=== PATIENT | female | born 1960 | race African-American/Black ===

== ENCOUNTER 2020-01-17 06:52 | Outpatient (CLI) | payer OTHER, SELFPAY ==
--- NOTE | ~2020-01-17 | XR_ITS ---
EXAMINATION: XR hip BI 2V w AP pelvis DATE: 01/17/2020 07:23 INDICATION: Hip pain. TECHNIQUE: An anteroposterior view pelvis and 2 views of each hip were obtained. COMPARISON: None. FINDINGS: There is lumbar levocurvature and moderate spondylosis. No fracture. There is mild osteoart hritis of the hips. IMPRESSION: 1. Mild osteoarthritis of the hips. Reviewed, dictated and finalized at location A.
--- NOTE | ~2020-01-17 | XR_ITS ---
EXAMINATION: XR chest 2V 01/17/2020 07:23 INDICATION: Acute bronchitis. Dyspnea. PROCEDURE: 2 view chest COMPARISON: No prior studies for comparison. FINDINGS: The lungs are clear. The cardiomediastinal silhouette is within normal limits. There are no pleural effusions. There is no pneumothorax suspected. IMPRESSION: 1: NO ACUTE CARDIOPULMONARY DISEASE. Reviewed, dictated and finalized at location A.
== END 2020-01-17 06:53 | disposition home or self-care (01) ==
LOC: ANHIMG 07:04
PROVIDERS: PCP Family Medicine; Visit Provider Family Medicine
DX: J20.9 Acute bronchitis, unspecified (principal); M25.559 Pain in unspecified hip; M16.0 Bilateral primary osteoarthritis of hip
CPT/HCPCS: 71046; 73521

== ENCOUNTER 2020-06-27 09:19 | Outpatient (CLI) | payer OTHER, SELFPAY ==
--- NOTE | ~2020-06-27 | MM_ITS ---
EXAMINATION: MM screening rustam BI w larissa HISTORY: Screening mammogram TECHNIQUE: Craniocaudal and mediolateral oblique 3-D tomosynthesis images were obtained and synthetic 2-D images were generated. CAD analysis was submitted and interpreted. COMPARISON: No prior mammogram is available for comparison at this institution. BREAST PARENCHYMAL COMPOSITION: There are scattered areas of fibroglandular density. FINDINGS: RIGHT BREAST: There is a mass in the middle third of the upper outer quadrant of the breast. In addit ion, there are indeterminate grouped calcifications in the anterior/middle third of inner breast. LEFT BREAST: There is no evidence of suspicious mass, calcification, or architectural distortion to s uggest malignancy. IMPRESSION: 1. Right breast findings as described above which may represent the patient's baseline however no com parison is currently available. 2. Comparison with prior mammograms is necessary. BI-RADS Category 0: Incomplete: Needs comparison with prior mammograms. Reviewed, dictated and finalized at location A. ECT MANAGEMENT ADVISOR IMPRESSION: 1. Right breast findings as described above which may represent the patient's b aseline however no comparison is currently available. 2. Comparison with prior mammograms is necessary. BI-RADS Category 0: Incomplete: Needs comparison with prior mammograms.
== END 2020-06-27 09:20 | disposition home or self-care (01) ==
LOC: ANHIMG 09:24
PROVIDERS: PCP Family Medicine; Visit Provider Family Medicine
DX: Z12.31 Encounter for screening mammogram for malignant neoplasm of breast (principal); R92.8 Other abnormal and inconclusive findings on diagnostic imaging of breast
CPT/HCPCS: 77063; 77067

== ENCOUNTER 2020-12-06 13:29 | Outpatient (CLI) | payer OTHER, SELFPAY ==
--- NOTE | ~2020-12-06 | US_ITS ---
EXAMINATION: US thyroid DATE: 12/06/2020 13:52 INDICATION: Nontoxic goiter TECHNIQUE: Multiple ultrasound images of the thyroid were obtained. COMPARISON: None. FINDINGS: The right thyroid lobe measures 5.6 x 2.1 x 1.6 cm. The left thyroid lobe measures 4.9 x 1.8 x 1.5 c m. Thyroid isthmus measures 4 mm in thickness. There is a 9 mm polyp and wide solid hypoechoic and h ypervascular nodule with smooth margins and without echogenic foci at the lower pole of the right thy roid lobe (TI-RADS 5, highly suspicious , FNA if >=1.0 cm, annual followup is >0.5 cm). 5 mm similar appearing but wider than tall TI RADS 4 nodule at the inferior left thyroid. There is normal echotext ure and echogenicity but with increased vascular flow throughout the thyroid gland. IMPRESSION: 1. A couple bilateral subcentimeter thyroid nodules. Recommend one-year follow-up ultrasound of the l arger and higher grade 9 mm TI RADS 5 nodule in the inferior right thyroid. Reviewed, dictated and finalized at location A. IMPRESSION: 1. A couple bilateral subcentimeter thyroid nodules. Recommend one-year follow- up ultrasound of the larger and higher grade 9 mm TI RADS 5 nodule in the infer ior right thyroid.
== END 2020-12-06 13:30 | disposition home or self-care (01) ==
LOC: ANHIMG 13:29
PROVIDERS: PCP Family Medicine; Visit Provider Student in an Organized Health Care Education/Training Program
DX: E04.2 Nontoxic multinodular goiter (principal)
CPT/HCPCS: 76536

== ENCOUNTER 2021-09-05 07:24 | Outpatient (CLI) | payer OTHER, SELFPAY ==
--- NOTE | ~2021-09-05 | MM_ITS ---
EXAMINATION: MM screening rustam BI w larissa HISTORY: Screening mammogram TECHNIQUE: Craniocaudal and mediolateral oblique 3-D tomosynthesis images were obtained and synthetic 2-D images were generated. CAD analysis was submitted and interpreted. COMPARISON: 08/13/2020, 06/27/2020, 11/21/2015 BREAST PARENCHYMAL COMPOSITION: There are scattered areas of fibroglandular density. FINDINGS: Scattered benign-appearing calcifications are present. There is no evidence of suspicious m ass, calcification, or architectural distortion to suggest malignancy in either breast. There has bee n no suspicious interval change. IMPRESSION: 1. No mammographic evidence of malignancy. 2. Recommend routine screening mammography in one year. BI-RADS Category 2: Benign finding(s). Reviewed, dictated and finalized at location A. OYMENT SPECIALIST
--- NOTE | ~2021-09-05 | XR_ITS ---
XR wrist LT min 3V 09/05/2021 08:24 INDICATION: Left wrist pain. Trauma. PROCEDURE: 4 views left wrist COMPARISON: No prior studies for comparison. FINDINGS: Fracture, dislocation or subluxation is not identified. There is an old ulnar styloid avuls ion. The soft tissues appear within normal limits. No foreign bodies are identified. IMPRESSION: 1: NO ACUTE BONE OR JOINT ABNORMALITY IDENTIFIED. Reviewed, dictated and finalized at location B. MAKER
--- NOTE | ~2021-09-05 | US_ITS ---
EXAMINATION: US thyroid EXAM DATE: 09/05/2021 08:31 INDICATION: Thyroid nodule. TECHNIQUE: Multiple grayscale and Doppler images of the thyroid were obtained (by a technologist who performed the scan) and subsequently reviewed. Individual nodules and recommendations may be reporte d in accordance with TI-RADS system as designated by the 2017 ACR White Paper TI-RADS committee. Comp chandanson is made to prior examination from 12/06/2020. FINDINGS: The right thyroid lobe measures 5.2 x 1.4 x 2.1 cm, the left measuring 5.0 x 1.7 x 2.2 cm. These dime nsions are mildly enlarged. Mildly hypervascular thyroid parenchyma. Largest nodule is in the right thyroid lobe measuring 9 x 7 x 6 mm, category TR 4, unchanged. This is the 1st annual follow-up for this nodule; additional follow-up in 1 year, 2 years and 4 years under current recommendations. The smaller 5 mm left thyroid nodule previously seen also unchanged. IMPRESSION: Multinodular goiter; one-year follow-up indicated. Reviewed, dictated and finalized at location A. ENT ACCESS ASSOCIATE
== END 2021-09-05 07:25 | disposition home or self-care (01) ==
LOC: ANHIMG 07:26
PROVIDERS: PCP Physician Assistant; Visit Provider Physician Assistant
DX: Z12.31 Encounter for screening mammogram for malignant neoplasm of breast (principal); M25.532 Pain in left wrist; E04.2 Nontoxic multinodular goiter
CPT/HCPCS: 73110; 76536; 77063; 77067

== ENCOUNTER 2022-09-21 09:40 | Outpatient (CLI) | payer OTHER, SELFPAY ==
--- NOTE | ~2022-09-21 | XR_ITS ---
EXAMINATION: XR hip BI 2V w AP pelvis DATE: 09/21/2022 10:09 INDICATION: Hip pain. TECHNIQUE: An anteroposterior view of the pelvis and 2 views of each hip were obtained. COMPARISON: Pelvis and hip radiograph 01/17/2020 FINDINGS: There is lumbar levocurvature and moderate spondylosis. No fracture. There is mild osteoart hritis of the hips. IMPRESSION: 1. Mild osteoarthritis of the hips. Reviewed, dictated and finalized at location A. GER ECONOMIC
--- NOTE | ~2022-09-21 | XR_ITS ---
EXAMINATION: XR knee LT 3V DATE: 09/21/2022 10:09 INDICATION: Left knee pain. TECHNIQUE: 3 views of left knee including standing views were obtained. COMPARISON: None. FINDINGS: Bone alignment is normal. No fracture. There is severe osteoarthritis of medial compartment and mild osteoarthritis of lateral and patellofemoral compartments. No knee joint effusion. IMPRESSION: 1. Severe left knee osteoarthritis. Reviewed, dictated and finalized at location A. S TENDER INCENDIARY GRENADE
--- NOTE | 2022-09-21 10:07 | ECG_ITS ---
Measurements Intervals Barre Rate: 78 P: 56 NJ: 154 QRS: -1 QRSD: 87 T: 9 QT: 370 QTc: 421 Interpretive Statements SINUS RHYTHM WITHIN NORMAL LIMITS NO PREVIOUS ECG AVAILABLE FOR COMPARISON Electronically Signed On 09-21-2022 12:15:16 DESIGNER WRITER by Patrick Fox M.D.
== END 2022-09-21 09:41 | disposition home or self-care (01) ==
PROVIDERS: PCP Physician Assistant; Visit Provider Physician Assistant
DX: R07.89 Other chest pain (principal); E04.9 Nontoxic goiter, unspecified; M25.559 Pain in unspecified hip; M25.562 Pain in left knee; M16.0 Bilateral primary osteoarthritis of hip; M17.12 Unilateral primary osteoarthritis, left knee
CPT/HCPCS: 73521; 73562; 93005

== ENCOUNTER 2022-09-25 16:47 | Outpatient (CLI) | payer OTHER, SELFPAY ==
--- NOTE | ~2022-09-25 | US_ITS ---
US thyroid INDICATION: Thyroid goiter TECHNIQUE: Real-time sonographic images of the thyroid gland were obtained. COMPARISON: 09/05/2021 FINDINGS: The right thyroid lobe measures 5.8 x 2.5 x 1.2 cm. The left thyroid lobe measures 5.1 x 2 .1 x 1.7 cm. In the right lobe there is an 11 x 8 x 8 mm oval circumscribed solid slightly hypoechoic , wider than tall without internal echogenic foci, TR 4. No significant change from prior study allow ing for differences of technique. No discrete mass identified in the left lobe. Normal vascularity in both lobes. IMPRESSION: 1. Stable 11 mm right thyroid nodule, TR 4, likely benign. Consider follow-up ultrasound in 12 month s. Reviewed, dictated and finalized at location A. NESS PROGRAM COORDINATOR IMPRESSION: 1. Stable 11 mm right thyroid nodule, TR 4, likely benign. Consider follow-up ultrasound in 12 months.
== END 2022-09-25 16:48 | disposition home or self-care (01) ==
LOC: ANHIMG 16:48
PROVIDERS: PCP Physician Assistant; Visit Provider Physician Assistant
DX: E04.1 Nontoxic single thyroid nodule (principal)
CPT/HCPCS: 76536

== ENCOUNTER 2022-11-19 17:09 | Outpatient (CLI) | payer OTHER, SELFPAY ==
--- NOTE | ~2022-11-19 | MM_ITS ---
EXAMINATION: MM screening rustam BI w larissa HISTORY: Screening mammogram TECHNIQUE: Craniocaudal and mediolateral oblique 3-D tomosynthesis images were obtained and synthetic 2-D images were generated. CAD analysis was submitted and interpreted. COMPARISON: 09/05/2021, 08/13/2020, 06/27/2020 lateral screening mammogram examinations BREAST PARENCHYMAL COMPOSITION: There are scattered areas of fibroglandular density. FINDINGS: Occasional bilateral benign calcifications, occasional benign appearing low-density circums cribed opacities. There is no evidence of suspicious mass, calcification, or architectural distortion to suggest malignancy in either breast. There has been no suspicious interval change. IMPRESSION: 1. No mammographic evidence of malignancy. 2. Recommend routine screening mammography in one year. BI-RADS Category 2: Benign finding(s). Reviewed, dictated and finalized at location A.
== END 2022-11-19 17:10 | disposition home or self-care (01) ==
PROVIDERS: PCP Physician Assistant; Visit Provider Physician Assistant
DX: Z12.31 Encounter for screening mammogram for malignant neoplasm of breast (principal)
CPT/HCPCS: 77063; 77067

== ENCOUNTER 2024-07-24 07:35 | Outpatient (CLI) | payer MEDICARE, SELFPAY ==
--- NOTE | ~2024-07-24 | MM_ITS ---
EXAMINATION: MM screening rustam BI w larissa HISTORY: Screening TECHNIQUE: Craniocaudal and mediolateral oblique 3-D tomosynthesis images were obtained and synthetic 2-D images were generated. CAD analysis was submitted and interpreted. COMPARISON: Comparison to multiple prior studies sequentially, with oldest reviewed study dated 11/20. BREAST PARENCHYMAL COMPOSITION: Not dense: There are scattered areas of fibroglandular density. FINDINGS: No significant change to right breast calcifications. There is no evidence of suspicious ma ss, calcification, or architectural distortion to suggest malignancy in either breast. There has been no suspicious interval change. IMPRESSION: 1. No mammographic evidence of malignancy. 2. Recommend routine screening mammography in one year. BI-RADS Category 2: Benign finding(s). Reviewed, dictated and finalized at location B. PAPER INSERTER
--- NOTE | ~2024-07-24 | DEXA_ITS ---
Bone Density Report Name: NURIA COREAS Age: 64 Sex: Female Ethnicity: White Date of : 1960 Indication: postmenopausal; screening for osteoporosis; Referring Provider: MICHAEL YOU Study: Bone densitometry was performed. Exam Date: July 24, 2024 Accession number: [id number] Bone Density: Region BMD T-score Z-score Classification AP Spine(L1-L4) 1.200 1.4 3.2 Normal Femoral Neck (Left) 0.741 -1.0 0.6 Normal Total Hip (Left) 1.008 0.5 1.8 Normal Femoral Neck (Right) 0.726 -1.1 0.5 Osteopenia Total Hip (Right) 0.951 0.1 1.4 Normal Total Hip Mean 0.980 0.3 1.6 Normal World Health Organization criteria for BMD impression classify patients as: Normal (T-score at or above -1.0), Osteopenia (T-score between -1.0 and -2.5), or Osteoporosis (T-score at or below -2.5). 10-year Fracture Risk(1): Major Osteoporotic Fracture 7.7% Hip Fracture 0.6% Reported Risk Factors: [place] (), Neck BMD=0.726, BMI=36.4 (1) FRAX(R) Version 3.08. Fracture probability calculated for an untreated patient. Fracture probability may be lower if the patient has received treatment. Clinical Information Provided by Patient: Has used the following medications: Vitamin D, Calcium Patient maximum height was 65.0 No regular weight bearing exercise Does not regularly consume dairy products Drinks caffeinated beverages Onset of menses at age 12 Number of children 2 Impression: The patient has low bone mass, based on the Right Femoral Neck T-score. The patient has an estimated ten-year risk of hip fracture of 0.6% and an estimated ten-year risk of major fracture of 7.7%, based on the WHO FRAX algorithm. Discussion: BONE DENSITY IS LOW AT ONE OR MORE SKELETAL SITES. This patient's lowest T-score is low at one or more skeletal sites. It meets the World Health Organization's (WHO) criteria for ?low bone mass? (T-score between -1.0 and -2.5). The patient's 10-year risk of fracture as calculated by FRAX is less than the threshold where pharmacological therapy is recommended by the National Osteoporosis Foundation (NOF). However, all treatment decisions require clinical judgment and consideration of individual patient factors, including patient preferences, comorbidities, previous drug use, risk factors not captured in the FRAX model (e.g., frailty, falls, vitamin D deficiency, increased bone turnover, interval significant decline in bone density) and possible under or overestimation of fracture risk by FRAX. The patient should follow a healthful lifestyle (good nutrition with adequate calcium and vitamin D, and appropriate weight-bearing exercise). Follow-Up: Consider repeating this study in 2 to 3 years to reassess this patient's status, or sooner if there is some new clinical indication. Reported by: AREN on 07/24/2024 8:08:00 AM. Reviewed, dictated and finalized at location A. MARILEE
--- OUTSIDE RECORDS SUMMARY | 2024-07-29 18:34 | XMS_ITS | Encounter Summary ---
Author Organization [facility] Address [address] [place] [address]. [place] [address] [place] [address] Care Team Providers Care Lead Radiologic Technologist Name Role Phone Rolando Padilla MD Primary Care Provider [phone] Dianelys Weber MD Primary Care Provider [phone] Dianelys Weber MD Primary Care Provider [phone] Dianelys Weber MD Primary Care Provider [phone] Encounter Details Date Type Department Care Team (Late st Contact Info) Description 06/11/[address] [facility] Diagnostic Imaging [address] [place] [address] Dianelys Weber MD [address] [facility] [address] [place] [address] Social History Tobacco Use Types Packs/Day Years Used Date Smoking Tobacco: Never Assessed Comments Unknown Sex and Gender Information Value Date Recorded Sex Assigned at Not on file Legal Sex Female 6:23 PM CDT Gender Identity Not on file Sexual Orientation Not on file documented as of this encounter Plan of Treatment Not on file documented as of this encounter Visit Diagnoses Diagnosis Other abnormal and inconclusive findings on diagnostic imaging of breast documented in this encounter Care Teams Lead Radiologic Technologist Relationship Specialty Start Date End Date Rolando Padilla MD [address] [facility] [address] [place] [address] PCP - General 11/20/16 12/27/16 Dianelys Weber MD [address] [place] [address] PCP - General 03/17/16 11/19/16 Dianelys Weber MD [address] [place] [address] PCP - General 08/07/15 03/16/16 Dianelys Weber MD [address] [place] [address] PCP - General 06/11/15 08/06/15 documented as of this encounter
--- OUTSIDE RECORDS SUMMARY | 2024-07-29 18:34 | XMS_ITS | Encounter Summary ---
Author Organization [facility] Address [address] [place] [address]. [place] [address] [place] [address] Care Team Providers Care Community Cultural Development Officer Name Role Phone Unavailable Primary Care Provider Unavailabl e Encounter Details Date Type Department Care Team (Late st Contact Info) Description 03/25/2017 Abstract [facility] [address] [facility] [place] [address] Volodymyr Gonzalez MD [address] [place] [address] Social History Tobacco Use Types Packs/Day Years Used Date Smoking Tobacco: Never Assessed Comments Unknown Sex and Gender Information Value Date Recorded Sex Assigned at Not on file Legal Sex Female 6:23 PM CDT Gender Identity Not on file Sexual Orientation Not on file documented as of this encounter Plan of Treatment Not on file documented as of this encounter Procedures Procedure Name Priority Date/Time Associated Diagnosis Comments AST/SGOT Routine 03/25/2017 7:25 AM CDT BASIC METABOLIC PANEL Routine 03/25/2017 7:25 AM CDT LIPID PANEL Routine 03/25/2017 7:25 AM CDT LIPOPROTEIN, LDL CHOL, DIRECT Routine 03/25/2017 7:25 AM CDT ALT/SGPT Routine 03/25/2017 7:25 AM CDT documented in this encounter Results * (ABNORMAL) LIPID PANEL (03/25/2017 7:25 AM CDT) [facility] Signature CHOLESTEROL 209(H) <200 MG/DL 03/25/2017 8:43 AM CDT [facility] Comment: NOTE: Acetaminophen, N Acetyl p benzoquinone imine (NAPQI), N acetylcysteine (NAC), Metamizole, 4 Aminoantipyrine (4 AAP) and 4 Methylamino antipyrine (4 MAP) at high concentrations can cause falsely low results on Lactate, Uric Acid, Cholesterol, Triglyceride, HDL, and Direct LDL. TRIGLYCERIDES 102 <150 MG/DL 03/25/2017 8:43 AM CDT [facility] HDL 49(L) >59 MG/DL 03/25/2017 8:43 AM T [facility] LDL (CALCULATED) 140(H) <100 MG/DL 03/25/2017 8:43 AM CDT [facility] NON HDL CHOLESTEROL 160(H) <130 MG/DL 03/25/2017 8:43 AM T [facility] Comment: NOTE: WHEN THE TRIGLYCERIDES ARE >200 mg/dL, NON HDL C IS A SECONDARY TARGET OF THERAPY, WITH A GOAL 30 mg/dL HIGHER THAN THE IDENTIFIED LDL C GOAL. CHOL/HDL RATIO 4.3 0.0 - 4.5 03/25/2017 8:43 AM T [facility] VLDL CALCULATION 20 5 - 55 MG/DL 03/25/2017 8:43 AM T [facility] LIPID INTERPRETATION 03/25/2017 8:43 AM T [facility] Comment: NIH CONCENSUS REPORT RECOMMENDATIONS: ?ADULT ?CHILD ??LOW RISK: ?CHOLESTEROL ? <200 ? <170 ?TRIGLYCERIDE ?<150 ?--- ?HDL ? >=60 ?--- ?LDL ? <100 ? <110 ??BORDERLINE: ?CHOLESTEROL ? 200-239 ?? 170-199 ?TRIGLYCERIDE ?150-199 ? --- ?HDL ?40-59 ?--- ?LDL ? 100-159 ?? 110-129 ??HIGH RISK: ?CHOLESTEROL ? >=240 ?>=200 ?TRIGLYCERIDE ?>=200 ? --- ?HDL ?<40 ?--- ?LDL ? >=160 ?>=130 03/25/2017 7:25 AM CDT 03/25/2017 8:15 AM CDT us Generic Conversion Md [facility] Final R esult [facility] [address] [place] [address], * (ABNORMAL) LIPOPROTEIN, LDL CHOL, DIRECT (03/25/2017 7:25 AM CDT) DIRECT LDL 142(H) <100 MG/DL 03/26/2017 6:09 AM CDT [facility] Comment: LDL OPTIMAL ?<100 LDL NEAR OPTIMAL ? 100-129 LDL BORDERLINE HIGH ??130-159 LDL HIGH ? 160-189 LDL VERY HIGH ?>=190 NOTE: Acetaminophen, N Acetyl p benzoquinone imine (NAPQI), N acetylcysteine (NAC), Metamizole, 4 Aminoantipyrine (4 AAP) and 4 Methylamino antipyrine (4 MAP) at high concentrations can cause falsely low results on Lactate, Uric Acid, Cholesterol, Triglyceride, HDL, and Direct LDL. SERUM OR PLASMA SPECIMEN / Unknown 03/25/2017 7:25 AM CDT 03/25/2017 8:15 AM CDT us Generic Conversion Md [facility] Final R esult [facility] [address] [place] [address], * (ABNORMAL) BASIC METABOLIC PANEL (03/25/2017 7:25 AM CDT) GLUCOSE 95 70 - 99 mg/dL 03/25/2017 8:43 AM CDT [facility] BUN 13 8 - 23 mg/dL 03/25/2017 8:43 AM CDT [facility] CREATININE S/P/B 0.81 0.60 - 1.10 mg/dL 03/25/2017 8:43 AM CDT [facility] SODIUM S/P/B 139 136 - 145 mmol/L 03/25/2017 8:43 AM CDT [facility] POTASSIUM S/P/B 4.2 3.5 - 5.1 mmol/L 03/25/2017 8:43 AM CDT [facility] CHLORIDE S/P/B 100 98 - 107 mmol/L 03/25/2017 8:43 AM CDT [facility] CO2 30(H) 22 - 29 mmol/L 03/25/2017 8:43 AM CDT [facility] CALCIUM S/P/B 9.7 8.6 - 10.2 mg/dL 03/25/2017 8:43 AM CDT [facility] ANION GAP 13 8 - 20 03/25/2017 8:43 AM CDT [facility] EGFR NON-AFR. AMER. >60 >60 mL/min/1.7 [facility] 03/25/2017 8:43 AM CDT [facility] EGFR AFR. AMER. >60 >60 mL/min/1.7 [facility] 03/25/2017 8:43 AM CDT [facility] Comment: NOTE: eGFR is not calculated for patients <18 years of age. This is an estimated GFR (CKD EPI) and should not be used for calculating drug doses. 03/25/2017 7:25 AM CDT 03/25/2017 8:15 AM CDT us Generic Conversion Md [facility] Final R esult Performing Organization Address City/[facility]/ZIP Co de Phone Number [facility] [address] [place] [address], [place] [phone] * AST/SGOT (03/25/2017 7:25 AM CDT) AST 17 0 - 32 U/L 03/25/2017 8:43 AM CDT [facility] SERUM OR PLASMA SPECIMEN / Unknown 03/25/2017 7:25 AM CDT 03/25/2017 8:15 AM CDT us Generic Conversion Md [facility] Final R esult Performing Organization Address City/[facility]/ZIP Co de Phone Number [facility] [address] [place] [address], * ALT/SGPT (03/25/2017 7:25 AM CDT) ALT 22 0 - 33 U/L 03/25/2017 8:43 AM CDT [facility] SERUM OR PLASMA SPECIMEN / Unknown 03/25/2017 7:25 AM CDT 03/25/2017 8:15 AM CDT us Generic Conversion Md [facility] Final R esult [facility] [address] [place] [address], [place] [phone] documented in this encounter Visit Diagnoses Diagnosis Primary osteoarthritis of both knees Primary localized osteoarthrosis, lower leg documented in this encounter
--- OUTSIDE RECORDS SUMMARY | 2024-07-29 18:34 | XMS_ITS | Encounter Summary ---
Author Organization [facility] Address [address] [place] [address]. [place] [address] [place] [address] Care Team Providers Care Rigging Loft Repairer Name Role Phone Rolando Padilla MD Primary Care Provider [phone] Encounter Details Date Type Department Care Team (Late st Contact Info) Description 11/20/2016 Abstract [facility] [address] [place] [address] Rolando Padilla MD [address] [place] [address] Social History Tobacco Use Types [...] Procedure Name Priority Date/Time Associated Diagnosis Comments OCCULT BLOOD, FECES Routine 11/23/2016 7 :44 AM CDT FREE T3 Routine 11/20/2016 8:21 AM CDT BASIC METABOLIC PANEL Routine 11/20/2016 8:21 AM CDT LIPID PANEL Routine 11/20/2016 8:21 AM CDT HEPATITIS C ANTIBODY Routine 11/20/2016 8:21 AM CDT LIPOPROTEIN, LDL CHOL, DIRECT Routine 11/20/2016 8:21 AM CDT THYROXINE, FREE (FT4) Routine 11/20/2016 8:21 AM CDT THYROID STIM HORMONE TSH Routine 11/20/2016 8:21 AM CDT CK (CPK) Routine 11/20/2016 8:21 AM CDT ALT/SGPT Routine 11/20/2016 8:21 AM CDT ALBUMIN URINE RANDOM W/CREATININE Routine 11/20/2016 8:13 AM CDT documented in this encounter Results * OCCULT BLOOD, FECES (11/23/2016 7:44 AM CDT) OCCULT BLOOD FECAL NEGATIVE NEGATIVE 11/23/2016 7:48 AM CDT [facility] 11/23/2016 7:44 AM CDT 11/23/2016 7:45 AM CDT us Generic Conversion Md SARMIENTO BODY FLUIDS AND STOOLS ORDERABLES Final Result [facility] [address] [place] [address], [place] [phone] * HEPATITIS C ANTIBODY (11/20/2016 8:21 AM CDT) HEPATITIS C AB NON-REACTI VE NON-REACTI VE 11/20/2016 9:36 PM CDT [facility] Comment: TESTING PERFORMED AT [place] [id number] [place] [address] SERUM OR PLASMA SPECIMEN / Unknown 11/20/2016 8:21 AM CDT 11/20/2016 11:33 AM CDT us Generic Conversion Md [facility] LABORATORY Final R eslilo [facility] [address] [place] [address], [place] [phone] * FREE T3 (11/20/2016 8:21 AM CDT) FREE T3 2.8 1.71 - 3.71 pg/mL 11/20/2016 10:23 PM CDT [facility] Comment: TESTING PERFORMED AT [address] [address] SERUM OR PLASMA SPECIMEN / Unknown 11/20/2016 8:21 AM CDT 11/20/2016 8:22 AM CDT us Generic Conversion Md [facility] Final R enrico Performing Organization Address City/[facility]/ZIP Co de Phone Number [facility] [address] [place] [address], [place] [phone] * THYROID STIM HORMONE, TSH (11/20/2016 8:21 AM CDT) TSH 1.96 0.27 - 4.20 mIU/mL 11/20/2016 9:44 AM CDT [facility] SERUM OR PLASMA SPECIMEN / Unknown 11/20/2016 8:21 AM CDT 11/20/2016 8:22 AM CDT us Generic Conversion Md [facility] Final R eslilo [facility] [address] [place] [address], [place] [phone] * (ABNORMAL) LIPID PANEL (11/20/2016 8:21 AM CDT) CHOLESTEROL 184 <200 MG/DL 11/20/2016 9:31 AM CDT [facility] Comment: NOTE: Acetaminophen, N Acetyl p benzoquinone imine (NAPQI), N acetylcysteine (NAC), Metamizole, 4 Aminoantipyrine (4 AAP) and 4 Methylamino antipyrine (4 MAP) at high concentrations can cause falsely low results on Lactate, Uric Acid, Cholesterol, Triglyceride, HDL, and Direct LDL. TRIGLYCERIDES 73 <150 MG/DL 11/20/2016 9:31 AM [facility] HDL 44(L) >59 MG/DL 11/20/2016 9:31 AM [facility] LDL (CALCULATED) 125(H) <100 MG/DL 11/20/2016 9:31 AM [facility] NON HDL CHOLESTEROL 140(H) <130 MG/DL 11/20/2016 9:31 AM [facility] Comment: NOTE: WHEN THE TRIGLYCERIDES ARE >200 mg/dL, NON HDL C IS A SECONDARY TARGET OF THERAPY, WITH A GOAL 30 mg/dL HIGHER THAN THE IDENTIFIED LDL C GOAL. CHOL/HDL RATIO 4.2 0.0 - 4.5 11/20/2016 9:31 AM [facility] VLDL CALCULATION 15 5 - 55 MG/DL 11/20/2016 9:31 AM [facility] LIPID INTERPRETATION 11/20/2016 9:31 AM [facility] Comment: NIH CONCENSUS REPORT RECOMMENDATIONS: ?ADULT ?CHILD ??LOW RISK: ?CHOLESTEROL ? <200 ? <170 ?TRIGLYCERIDE ?<150 ?--- ?HDL ? >=60 ?--- ?LDL ? <100 ? <110 ??BORDERLINE: ?CHOLESTEROL ? 200-239 ?? 170-199 ?TRIGLYCERIDE ?150-199 ? --- ?HDL ?40-59 ?--- ?LDL ? 100-159 ?? 110-129 ??HIGH RISK: ?CHOLESTEROL ? >=240 ?>=200 ?TRIGLYCERIDE ?>=200 ? --- ?HDL ?<40 ?--- ?LDL ? >=160 ?>=130 11/20/2016 8:21 AM CDT 11/20/2016 8:22 AM CDT us Generic Conversion Md [facility] Final R esult Performing Organization Address City/State/[facility] Co de Phone Number [facility] [address] [place] [address], * THYROXINE, FREE (FT4) (11/20/2016 8:21 AM CDT) FREE T4 1.04 0.93 - 1.70 ng/dL 11/20/2016 9:44 AM CDT [facility] SERUM OR PLASMA SPECIMEN / Unknown 11/20/2016 8:21 AM CDT 11/20/2016 8:22 AM CDT us Generic Conversion Md [facility] Final R esult Performing Organization Address [facility] de Phone Number [facility] [address] [place] [address], * (ABNORMAL) LIPOPROTEIN, LDL CHOL, DIRECT (11/20/2016 8:21 AM CDT) DIRECT LDL 130(H) <100 MG/DL 11/23/2016 6:40 AM CDT [facility] Comment: LDL OPTIMAL ?<100 LDL NEAR [...] LDL. SERUM OR PLASMA SPECIMEN / Unknown 11/20/2016 8:21 AM CDT 11/20/2016 8:22 AM CDT us Generic Conversion Md [facility] Final R enrico Performing Organization Address [facility] de Phone Number [facility] [address] [place] [address], * (ABNORMAL) CK (CPK) (11/20/2016 8:21 AM CDT) CPK 263(H) 26 - 192 U/L 11/20/2016 9:31 AM CDT [facility] SERUM OR PLASMA SPECIMEN / Unknown 11/20/2016 8:21 AM CDT 11/20/2016 8:22 AM CDT us Generic Conversion Md [facility] Final R eslilo [facility] [address] [place] [address], [place] [phone] * (ABNORMAL) BASIC METABOLIC PANEL (11/20/2016 8:21 AM CDT) [facility] GLUCOSE 101(H) 70 - 99 mg/dL 11/20/2016 9:31 AM CDT [facility] BUN 10 8 - 23 mg/dL 11/20/2016 9:31 AM CDT [facility] CREATININE S/P/B 1.03 0.60 - 1.10 mg/dL 11/20/2016 9:31 AM CDT [facility] SODIUM S/P/B 142 136 - 145 mmol/L 11/20/2016 9:31 AM CDT [facility] POTASSIUM S/P/B 4.1 3.5 - 5.1 mmol/L 11/20/2016 9:31 AM CDT [facility] CHLORIDE S/P/B 104 98 - 107 mmol/L 11/20/2016 9:31 AM CDT [facility] CO2 27 22 - 29 mmol/L 11/20/2016 9:31 AM CDT [facility] CALCIUM S/P/B 8.9 8.6 - 10.2 mg/dL 11/20/2016 9:31 AM CDT [facility] ANION GAP 15 8 - 20 11/20/2016 9:31 AM T [facility] EGFR NON-AFR. AMER. 60(L) >60 mL/min/1.7 3m'2 11/20/2016 9:31 AM CDT [facility] EGFR AFR. AMER. >60 >60 mL/min/1.7 3m'2 11/20/2016 9:31 AM T [facility] Comment: NOTE: eGFR is not calculated for patients <18 years of age. This is an estimated GFR (CKD EPI) and should not be used for calculating drug doses. 11/20/2016 8:21 AM CDT 11/20/2016 8:22 AM CDT us Generic Conversion Md [facility] Final R esult Performing Organization Address [facility]/ZIP Co de Phone Number [facility] [address] [place] [address], * ALT/SGPT (11/20/2016 8:21 AM CDT) ALT 18 0 - 33 U/L 11/20/2016 9:31 AM CDT [facility] SERUM OR PLASMA SPECIMEN / Unknown 11/20/2016 8:21 AM CDT 11/20/2016 8:22 AM CDT us Generic Conversion Md [facility] Final R esult Performing Organization Address [facility] Co de Phone Number [facility] [address] [place] [address], * (ABNORMAL) MICROALBUMIN URINE RANDOM (11/20/2016 8:13 AM CDT) MICROALBUMIN (U) 2.2(H) <2.0 mg/dL 11/21/19 17 1:17 PM CDT [facility] CREATININE (U) 209 28 - 217 mg/dL 11/20/2016 1:17 PM CDT [facility] ALBUMIN/CREAT RATIO 10.5 <30 MG/G 11/20/2016 1:17 PM CDT [facility] 11/20/2016 8:13 AM CDT 11/20/2016 10:54 AM CDT us Generic Conversion Md SARMIENTO URINE ORDERABLES Final Result Performing Organization Address City/[facility]/ZIP Co de Phone Number [facility] [address] [place] [address], documented in this encounter Visit Diagnoses Diagnosis Encounter for screening mammogram for malignant neoplasm of breast Other screening mammogram documented in this encounter Care Teams Rigging Loft Repairer Relationship Specialty Start Date End Date Rolando Padilla MD [address] [facility] [address] [place] [address] PCP - General 11/20/16 12/27/16 documented as of this encounter
--- OUTSIDE RECORDS SUMMARY | 2024-07-29 18:34 | XMS_ITS | Encounter Summary ---
Author Organization [facility] Address [address] [place] [address]. [place], [place] [address] [place] [address] Care Team Providers Care Resident Care Manager Name Role Phone Volodymyr Gonzalez MD Primary Care Provider [phone] Encounter Details Date Type Department Care Team (Latest Contact Info) Description 12/22/2017 8:15 AM CDT - 12/22/2017 8:39 AM CDT Hospital Encounter [facility] [address] [place] [address] Volodymyr Gonzalez MD [address] [facility] [address] [place] [address] Discharge Disposition: Home or Self Care (Routine Discharge) Social History Tobacco Use Types Packs/Day Years [...] Procedure Name Priority Date/Time Associated Diagnosis Comments XR CHEST PA+LAT Routine 12/22/2017 8:51 AM CDT Cough documented in this encounter Results * XR CHEST PA+LAT (12/22/2017 8:51 AM CDT) Anatomical Region Laterality Modality Chest Radiographic Sandra ging 12/22/2017 9:00 AM CDT Impressions 12/22/2017 9:01 AM CDT =====IMPRESSION:===== 1. No radiographic evidence of active disease the chest. Narrative 12/22/2017 9:01 AM CDT Examination: Chest x-ray 2 view Exam date/time: 12/22/2017 8:21 AM Reason For Exam: ??R05 ? Cough, history of breast cancer. Comparison: 07/08/2015 Technique: PA and lateral views of the chest were obtained. Findings: The cardiac silhouette, mediastinal contours, and pulmonary vessels appear normal. The lungs are clear. No pneumothorax. No consolidations or effusions are seen. Procedure Note Boston Whalen MD - 12/22/2017 Examination: Chest x-ray 2 view Exam date/time: 12/22/2017 8:21 AM Reason For Exam: R05 Cough, history of breast cancer. Comparison: 07/08/2015 Technique: PA and lateral views of the chest were obtained. Findings: The cardiac silhouette, mediastinal contours, and pulmonary vessels appear normal. The lungs are clear. No pneumothorax. No consolidations or effusions are seen. =====IMPRESSION:===== 1. No radiographic evidence of active disease the chest. Volodymyr Gonzalez MD GENERAL IMAGING Final Result documented in this encounter Visit Diagnoses Diagnosis Cough documented in this encounter Care Teams Resident Care Manager Relationship Specialty Start Date End Date Volodymyr Gonzalez MD PCP - General INTERNAL MEDICINE 12/22/17 documented as of this encounter
--- OUTSIDE RECORDS SUMMARY | 2024-07-29 18:34 | XMS_ITS | Encounter Summary ---
Author Organization [facility] Address [address] [place] [address]. [place] [address] [place] [address] Care Team Providers Care Surgical Resident Name Role Phone Unavailable Primary Care Provider Unavailabl e Encounter Details Date Type Department Care Team (Late st Contact Info) Description 02/16/2017 Abstract [facility] [address] [place], [place] [id number] Felix Givens MD [facility] [address] [id number] Social History Tobacco Use Types Packs/Day Years Used Date Smoking Tobacco: Never Assessed Comments Unknown Sex and Gender Information Value Date Recorded Sex Assigned at Not on file Legal Sex Female 6:23 PM CDT Gender Identity Not on file Sexual Orientation Not on file documented as of this encounter Plan of Treatment Not on file documented as of this encounter Visit Diagnoses Not on filedocumented in this encounter
--- OUTSIDE RECORDS SUMMARY | 2024-07-29 18:34 | XMS_ITS | Encounter Summary ---
Author Organization [facility] Address [address] [place] [address]. [place], [place] [address] [address] Care Team Providers Care Fifth Grade Teacher Name Role Phone Rolando Padilla MD Primary Care Provider [phone] Dianelys Weber MD Primary Care Provider [phone] Encounter Details Date Type Department Care Team (Late st Contact Info) Description 03/17/2016 Abstract [facility] [place], [place] [id number] Dianelys Weber MD [address] [address] Social History Tobacco Use Types Packs/Day [...] as of this encounter Visit Diagnoses Diagnosis Primary osteoarthritis of both knees Primary localized osteoarthrosis, lower leg documented in this encounter Care Teams Fifth Grade Teacher Relationship Specialty Start Date End Date Rolando Padilla MD [address] [facility] [address] [place] [address] PCP - General 11/20/16 12/27/16 Dianelys Weber MD [address] [place] [address] PCP - General 03/17/16 11/19/16 documented as of this encounter
--- OUTSIDE RECORDS SUMMARY | 2024-07-29 18:34 | XMS_ITS | Encounter Summary ---
Author Organization [facility] Address [address] [place] [address]. [place] [address] [place] [address] Care Team Providers Care Log Handling Equipment Operator Name Role Phone Rolando Padilla MD Primary Care Provider [phone] Dianelys Weber MD Primary Care Provider [phone] Dianelys Weber MD Primary Care Provider [phone] Dianelys Weber MD Primary Care Provider [phone] Dianelys Weber MD Primary Care Provider [phone] Encounter Details Date Type Department Care Team (Late st Contact Info) Description 05/23/2015 Abstract [facility] [address] [place], [place] [address] Dianelys Weber MD [address] [address] Social History Tobacco Use Types [...] as of this encounter Visit Diagnoses Diagnosis Encounter for screening mammogram for malignant neoplasm of breast Other screening mammogram documented in this encounter Care Teams Log Handling Equipment Operator Relationship Specialty Start Date End Date Rolando Padilla MD [address] [place] [address] PCP - General 11/20/16 12/27/16 Dianelys Weber MD [address] [place] [address] PCP - General 03/17/16 11/19/16 Dianelys Weber MD [address] [place] [address] PCP - General 08/07/15 03/16/16 Dianelys Weber MD [address] [place] [address] PCP - General 06/11/15 08/06/15 Dianelys Weber MD [address] [place] [address] PCP - General 05/23/15 06/10/15 documented as of this encounter
--- OUTSIDE RECORDS SUMMARY | 2024-07-29 18:34 | XMS_ITS | Encounter Summary ---
Author Organization [facility] Address [address] [place] [address]. [place] [address] [place] [address] Care Team Providers Care Building Services Technician Name Role Phone Rolando Padilla MD Primary Care Provider [phone] Dianelys Weber MD Primary Care Provider [phone] Dianelys Weber MD Primary Care Provider [phone] Encounter Details Date Type Department Care Team (Late st Contact Info) Description 08/07/2015 Abstract [facility] [place] [address] Dianelys Weber MD [address] [facility] [address] [place] [address] Social History Tobacco Use Types [...] as of this encounter Visit Diagnoses Diagnosis Shortness of breath documented in this encounter Care Teams Building Services Technician Relationship Specialty Start Date End Date Rolando Padilla MD [address] [facility] [address] [place] [address] PCP - General 11/20/16 12/27/16 Dianelys Weber MD [address] [place] [address] PCP - General 03/17/16 11/19/16 Dianelys Weber MD [address] [place] [address] PCP - General 08/07/15 03/16/16 documented as of this encounter
--- OUTSIDE RECORDS SUMMARY | 2024-07-29 18:34 | XMS_ITS | Encounter Summary ---
Author Organization [facility] Address [address] [place] [address]. [place], [place] [address] [place] [address] Care Team Providers Care Gyroscopic Instrument Tester Name Role Phone Volodymyr Gonzalez MD Primary Care Provider [phone] Encounter Details Date Type Department Care Team (Late st Contact Info) Description 12/22/2017 Orders Only [facility] Laboratory-[address], [address] [place] [address] Volodymyr Gonzalez MD 331 [facility] 100 [place] [address] Social History Tobacco Use Types Packs/Day Years Used Date Smoking Tobacco: Never Assessed Comments Unknown Sex and Gender Information Value Date Recorded Sex Assigned at Not on file Legal Sex Female 6:23 PM CDT Gender Identity Not on file Sexual Orientation Not on file documented as of this encounter Plan of Treatment Not on file documented as of this encounter Results * (ABNORMAL) LIPID PANEL (12/22/2017 8:52 AM CDT) CHOLESTEROL 187 <200 MG/DL 12/22/2017 1:40 PM CDT [facility] TRIGLYCERIDES 103 <150 MG/DL 12/22/2017 1:40 PM CDT [facility] HDL 44 >40.0 MG/DL 12/22/2017 1:40 PM CDT [facility] LDL (CALCULATED) 122.4(H) <100 MG/L 12/23/19 18 1:40 PM CDT [facility] NON HDL CHOLESTEROL 143(H) <130 MG/DL 12/22/2017 1:40 PM T [facility] CHOL/HDL RATIO 4.2 0.0 - 4.5 12/22/2017 1:40 PM T [facility] VLDL CALCULATION 21 5 - 55 MG/DL 12/22/2017 1:40 PM T [facility] LIPID INTERPRETATION 12/22/2017 1:40 PM T [facility] Comment: NIH CONCENSUS REPORT RECOMMENDATIONS: ?ADULT ?CHILD ??LOW RISK: ?CHOLESTEROL ? <200 ? <170 ?TRIGLYCERIDE ?<150 ?--- ?HDL ? >=60 ?--- ?LDL ? <100 ? <110 ??BORDERLINE: ?CHOLESTEROL ? 200-239 ?? 170-199 ?TRIGLYCERIDE ?150-199 ? --- ?HDL ?40-59 ?--- ?LDL ? 100-159 ?? 110-129 ??HIGH RISK: ?CHOLESTEROL ? >=240 ?>=200 ?TRIGLYCERIDE ?>=200 ? --- ?HDL ?<40 ?--- ?LDL ? >=160 ?>=130 12/22/2017 8:52 AM CDT Volodymyr Gonzalez MD LABORATORY Final Result Performing Organization Address [facility] de Phone Number [facility] [address] [place] [address], * THYROID STIM HORMONE, TSH (12/22/2017 8:52 AM CDT) TSH 1.430 0.358 - 3.74 uIU/ML 12/22/2017 1:40 PM CDT [facility] Comment: HIGH DOSES OF BIOTIN MAY INTERFERE WITH THIS TEST RESULT. CORRELATION TO CLINICAL HISTORY AND PRESENTATION RECOMMENDED. 12/22/2017 8:52 AM CDT Volodymyr Gonzalez MD LABORATORY Final Result Performing Organization Address [facility] de Phone Number [facility] [address] [place] [address], * (ABNORMAL) COMPREHENSIVE METABOLIC PANEL (12/22/2017 8:52 AM CDT) GLUCOSE 97 70 - 99 MG/DL 12/22/2017 1:40 PM CDT [facility] BUN 11 7 - 18 MG/DL 12/22/2017 1:40 PM CDT [facility] CREATININE S/P/B 0.95 0.55 - 1.02 MG/DL 12/22/2017 1:40 PM CDT [facility] SODIUM S/P/B 143 136 - 145 MMOL/L 12/22/2017 1:40 PM CDT [facility] POTASSIUM S/P/B 3.6 3.5 - 5.1 MMOL/L 12/22/2017 1:40 PM CDT [facility] CHLORIDE S/P/B 108 100 - 108 MMOL/L 12/22/2017 1:40 PM CDT [facility] CO2 27.4 21 - 32 MMOL/L 12/22/2017 1:40 PM T [facility] CALCIUM S/P/B 8.2(L) 8.5 - 10.1 MG/DL 12/22/2017 1:40 PM T [facility] BILIRUBIN TOTAL S/P/B 0.2 0.2 - 1.2 MG/DL 12/22/2017 1:40 PM CDT [facility] TOTAL PROTEIN S/P/B 7.0 6.4 - 8.2 G/DL 12/22/2017 1:40 PM CDT [facility] ALBUMIN S/P/B 3.4 3.4 - 5.0 G/DL 12/22/2017 1:40 PM T [facility] AST 20 15 - 37 U/L 12/22/2017 1:40 PM CDT [facility] ALT 30 14 - 55 U/L 12/22/2017 1:40 PM T [facility] ALKALINE PHOSPHATASE S/P/B 94 50 - 136 U/L 12/22/2017 1:40 PM CDT [facility] ANION GAP 11.2 8 - 20 MMOL/L 12/22/2017 1:40 PM T [facility] BUN CREATININE RATIO 11.6 6 - 26 12/22/2017 1:40 PM CDT [facility] A/G RATIO 0.9(L) 1.0 - 2.0 RATIO 12/22/2017 1:40 PM CDT [facility] EGFR NON-AFR. AMER. 66(L) >90 ML/MIN/1.7 3 M2 12/22/2017 1:40 PM CDT [facility] EGFR AFR. AMER. 76(L) >90 ML/MIN/1.7 3 M2 12/22/2017 1:40 PM CDT [facility] Comment: NOTE: eGFR is not calculated for patients <18 years of age. This is an estimated GFR (CKD EPI) and should not be used for calculating drug doses. 12/22/2017 8:52 AM CDT Volodymyr Gonzalez MD LABORATORY Final Result [facility] [address] [place] [address], [place] [phone] * (ABNORMAL) CBC W/DIFF AUTOMATED (12/22/2017 8:52 AM CDT) WBC 5.5 4.8 - 10.8 x10'3/uL 12/22/2017 3:26 PM CDT [facility] RBC 4.69 4.20 - 5.40 x10'6/uL 12/22/2017 3:26 PM CDT [facility] HGB 12.2 12.0 - 16.0 G/DL 12/22/2017 3:26 PM CDT [facility] HCT 40.0 38.0 - 48.0 % 12/22/2017 3:26 PM CDT [facility] MCV 85.3 81.0 - 99.0 FL 12/22/2017 3:26 PM CDT [facility] MCH 26.0(L) 27.0 - 31.0 PG 12/22/2017 3:26 PM CDT [facility] MCHC 30.5(L) 32.0 - 36.0 G/DL 12/22/2017 3:26 PM CDT [facility] RDW 15.7(H) 11.5 - 14.5 % 12/22/2017 3:26 PM CDT [facility] PLT 331 130 - 400 x10'3/uL 12/22/2017 3:26 PM CDT [facility] MPV 10.2 9.3 - 12.2 FL 12/22/2017 3:26 PM CDT [facility] NEUTROPHILS % 47.9 43.0 - 65.0 % 12/22/2017 3:26 PM CDT [facility] LYMPHOCYTES % 39.1 20.0 - 46.0 % 12/22/2017 3:26 PM CDT [facility] MONOCYTES % 9.5 5.0 - 12.0 % 12/22/2017 3:26 PM CDT [facility] EOSINOPHILS 2.4 1.0 - 3.0 % 12/22/2017 3:26 PM CDT [facility] BASOPHILS 0.9 0.0 - 1.0 % 12/22/2017 3:26 PM CDT [facility] IMMATURE GRANS % 0.2 0.0 - 1.0 % 12/22/2017 3:26 PM CDT [facility] 12/22/2017 8:52 AM CDT us Volodymyr Gonzalez MD LABORATORY Final Result [facility] [address] [place] [address], * D-DIMER, QUANTITATIVE (12/22/2017 8:52 AM CDT) D-DIMER 154 0 - 230 D DU ng/mL 12/22/2017 1:25 PM CDT [facility] Comment: TESTING PERFORMED ON AR ACL TOP 300 ANALYZER. NOTE: RESULTS OF THIS TEST SHOULD ALWAYS BE INTERPRETED IN CONJUNCTION WITH THE PATIENT'S MEDICAL HISTORY, CLINICAL PRESENTATION AND OTHER FINDINGS. CLINICAL DIAGNOSIS SHOULD NOT BE BASED ON THE RESULT OF D-DIMER ALONE. THE MEASUREMENT OF D-DIMER SHOULD NOT BE USED AN AID IN THE DIAGNOSIS OF VTE IN PATIENTS WITH: THERAPEUTIC DOSE ANTICOAGULANT THERAPY FOR >24HRS, FIBRINOLYTIC THERAPY WITHIN PREVIOUS 7 DAYS, TRAUMA OR SURGERY WITHIN PREVIOUS 4 WEEKS, DISSEMINATED MALIGNANCIES, AORTIC ANEURYSM, SEPSIS, SEVERE INFECTIONS, PNEUMONIA, SEVERE SKIN INFECTIONS, LIVER CIRRHOSIS OR . 12/22/2017 8:52 AM CDT Volodymyr Gonzalez MD LABORATORY Final Result [facility] [address] [place] [address], documented in this encounter Visit Diagnoses Diagnosis Cough- Primary Essential hypertension, malignant Thyroid nodule Nontoxic uninodular goiter Screening cholesterol level Screening for lipoid disorders documented in this encounter Care Teams Gyroscopic Instrument Tester Relationship Specialty Start Date End Date Volodymyr Gonzalez MD PCP - General INTERNAL MEDICINE 12/22/17 documented as of this encounter
--- OUTSIDE RECORDS SUMMARY | 2024-07-29 18:34 | XMS_ITS | Encounter Summary ---
Author Organization [facility] Address [address] [place] [address]. [place] [address] [place] [address] Care Team Providers Care Avid Editor Name Role Phone Rolando Padilla MD Primary Care Provider [phone] Dianelys Weber MD Primary Care Provider [phone] Dianelys Weber MD Primary Care Provider [phone] Encounter Details Date Type Department Care Team (Late st Contact Info) Description 08/15/2015 Abstract [facility] Physical Therapy [address] [place] [address] Dianelys Weber MD [address] [facility] [address] [place] [address] Social History Tobacco Use Types [...] Diagnoses Not on filedocumented in this encounter Care Teams Avid Editor Relationship Specialty Start Date End Date Rolando Padilla MD 331 [facility] 100 [place] [address] PCP - General 11/20/16 12/27/16 Dianelys Weber MD [address] [place] [address] PCP - General 03/17/16 11/19/16 Dianelys Weber MD [address] [place] [address] PCP - General 08/07/15 03/16/16 documented as of this encounter
--- OUTSIDE RECORDS SUMMARY | 2024-07-29 18:34 | XMS_ITS | Encounter Summary ---
Author Organization [facility] Address [address] [place] [address]. [place], [place] [address] [place] [address] Care Team Providers Care Plan Manager Name Role Phone Unavailable Primary Care Provider Unavailabl e Encounter Details Date Type Department Care Team (Late st Contact Info) Description 04/28/2017 Abstract [facility] Physical Therapy [address] [place] [address] Volodymyr Gonzalez MD [address] [place] [address] Social History Tobacco Use Types [...] as of this encounter Visit Diagnoses Diagnosis Low back pain with left-sided sciatica documented in this encounter
--- OUTSIDE RECORDS SUMMARY | 2024-07-29 18:34 | XMS_ITS | Clinical Summary ---
Author Organization [facility] Address [address] [place] [address]. [place], [place] [address] [place] [address] Care Team Providers Care Classifier Operator Name Role Phone Volodymyr Gonzalez MD Primary Care Provider [phone] Social History Tobacco Use Types Packs/Day Years Used Date Smoking Tobacco: Never Assessed Comments Unknown Sex and Gender Information Value Date Recorded Sex Assigned at Not on file Legal Sex Female 6:23 PM CDT Gender Identity Not on file Sexual Orientation Not on file Plan of Treatment Health Maintenance Due Date Last Done Comments Colorectal Cancer Screening Colonoscopy (10 Years) 1958 DTaP, Tdap and Td Vaccines ( 1 - Tdap) 1977 Mammogram Screening 1998 Zoster Vaccines (1 of 2) 2008 Dexa Scan (General) 2023 Pneumococcal Vaccine: 65+ Ye ars (1 of 1 - PCV) 2023 COVID-19 Vaccine ( - 2023-2 5 season) 2024 Influenza Adult (#1) 2024 RSV Immunization or 60+ Years (1 - 1-dose 75+ series) 2033 Hepatitis C Completed 11/20/2016 Meningococcal Vaccine Aged Out No edson lewis eligible based on patient's age to complete this topic Pneumococcal Vaccine: Pediat rics (0 to 5 Years) and At-Risk Patients (6 to 64 Years) Aged Out No longer eligi ble based on patient's age to complete this topic RSV Immunizations Under 20 Months Aged Out No longer eligible based on patient's age to complete this topic Procedures Procedure Name Priority Date/Time Associated Diagnosis Comments HEPATITIS C ANTIBODY Routine 11/20/2016 8:21 AM CDT from Last 3 Months or Most Recently Relevant to Health Maintenance Results * HEPATITIS C ANTIBODY (11/20/2016 8:21 AM CDT) HEPATITIS C AB NON-REACTI VE NON-REACTI VE 11/20/2016 9:36 PM CDT [facility] Comment: TESTING PERFORMED AT [facility] [address] [place] [address] SERUM OR PLASMA SPECIMEN / Unknown 11/20/2016 8:21 AM CDT 11/20/2016 11:33 AM CDT us Generic Conversion Md [facility] Final R esult [facility] [address] [place] [address], [place] [phone] from Last 3 Months or Most Recently Relevant to Health Maintenance Care Teams Classifier Operator Relationship Specialty Start Date End Date Volodymyr Gonzalez MD PCP - General INTERNAL MEDICINE 12/22/17
--- OUTSIDE RECORDS SUMMARY | 2024-07-29 18:34 | XMS_ITS | Encounter Summary ---
Author Organization [facility] Address [address] [place] [address]. [place] [address] [place] [address] Care Team Providers Care Admitting Counselor Name Role Phone Unavailable Primary Care Provider Unavailabl e Encounter Details Date Type Department Care Team (Late st Contact Info) Description 12/28/2016 Abstract [facility] [address] [address] Rolando Padilla MD [address] [place] [address] Social History Tobacco Use Types [...] as of this encounter Visit Diagnoses Diagnosis Body mass index (BMI) of 40.0-44.9 in adult ([facility]) Body Mass Index 40.0-44.9, adult documented in this encounter
--- OUTSIDE RECORDS SUMMARY | 2024-07-29 18:34 | XMS_ITS | Encounter Summary ---
Author Organization [facility] Address [address] [place] [address]. [place], [place] [address] [place] [address] Care Team Providers Care Synthetic Plasterer Name Role Phone Rolando Padilla MD Primary Care Provider [phone] Dianelys Weber MD Primary Care Provider [phone] Encounter Details Date Type Department Care Team (Late st Contact Info) Description 11/19/2016 Abstract [place] [address] Rolando Padilla MD [address] [place] [address] Social History Tobacco Use Types [...] on filedocumented in this encounter Care Teams Synthetic Plasterer Relationship Specialty Start Date End Date Rolando Padilla MD [address] [place] [address] PCP - General 11/20/16 12/27/16 Dianelys Weber MD [address] [place] [address] PCP - General 03/17/16 11/19/16 documented as of this encounter
--- OUTSIDE RECORDS SUMMARY | 2024-07-29 18:34 | XMS_ITS | Encounter Summary ---
Author Organization [facility] Address [facility]. [place], [place] [address] [place] [address] Care Team Providers Care Grinding Wheel Dresser Name Role Phone Volodymyr Gonzalez MD Primary Care Provider Encounter Details Date Type Department Care Team (Latest Contact Info) Description 12/22/2017 8:40 AM CDT - 12/22/2017 11:59 PM CDT Hospital Encounter [facility] Laboratory-[address], [address] [place] [address] Volodymyr Gonzalez MD [address] [place] [address] [address] [place] [address] Discharge Disposition: Home or Self [...] Procedure Name Priority Date/Time Associated Diagnosis Comments COMPREHENSIVE METABOLIC PANEL Routine 12/22/2017 8:52 AM CDT Cough Essential hypertension, malignant Thyroid nodule Screening cholesterol level LIPID PANEL Routine 12/22/2017 8:52 AM CDT Cough Essential hypertension, malignant Thyroid nodule Screening cholesterol level D-DIMER, QUANTITATIVE Routine 12/22/2017 8:52 AM CDT Cough Essential hypertension, malignant Thyroid nodule Screening cholesterol level CBC W/DIFF AUTOMATED Routine 12/22/2017 8:52 AM CDT Cough Essential hypertension, malignant Thyroid nodule Screening cholesterol level THYROID STIM HORMONE TSH Routine 12/22/2017 8:52 AM CDT Cough Essential hypertension, malignant Thyroid nodule Screening cholesterol level documented in this encounter Results * (ABNORMAL) LIPID PANEL (12/22/2017 8:52 AM CDT) CHOLESTEROL 187 <200 MG/DL 12/22/2017 1:40 PM CDT [facility] TRIGLYCERIDES 103 <150 MG/DL 12/22/2017 1:40 PM CDT [facility] HDL 44 >40.0 MG/DL 12/22/2017 1:40 PM T [facility] LDL (CALCULATED) 122.4(H) <100 MG/L 12/23/19 18 1:40 PM T [facility] NON HDL CHOLESTEROL 143(H) <130 MG/DL 12/22/2017 1:40 PM T [facility] CHOL/HDL RATIO 4.2 0.0 - 4.5 12/22/2017 1:40 PM T [facility] VLDL CALCULATION 21 5 - 55 MG/DL 12/22/2017 1:40 PM T [facility] LIPID INTERPRETATION 12/22/2017 1:40 PM T [facility] Comment: NIH CONCENSUS REPORT RECOMMENDATIONS: [...] MD LABORATORY Final Result Performing Organization Address [facility]/State/[facility] Co de Phone Number [facility] [address] [place] [address], * THYROID STIM HORMONE, TSH (12/22/2017 8:52 AM CDT) TSH 1.430 0.358 - 3.74 uIU/ML 12/22/2017 1:40 PM CDT [facility] Comment: HIGH DOSES OF BIOTIN MAY INTERFERE WITH THIS TEST RESULT. CORRELATION TO CLINICAL HISTORY AND PRESENTATION RECOMMENDED. 12/22/2017 8:52 AM CDT Volodymyr Gonzalez MD LABORATORY Final Result [facility] [address] [place] [address], * (ABNORMAL) COMPREHENSIVE METABOLIC PANEL (12/22/2017 8:52 AM CDT) Pathologist [facility] GLUCOSE 97 70 - 99 MG/DL 12/22/2017 1:40 PM CDT [facility] BUN 11 7 - 18 MG/DL 12/22/2017 1:40 PM CDT [facility] CREATININE S/P/B 0.95 0.55 - 1.02 MG/DL 12/22/2017 1:40 PM CDT [facility] SODIUM S/P/B 143 136 - 145 MMOL/L 12/22/2017 1:40 PM CDT [facility] POTASSIUM S/P/B 3.6 3.5 - 5.1 MMOL/L 12/22/2017 1:40 PM CDT [facility] CHLORIDE S/P/B 108 100 - 108 MMOL/L 12/22/2017 1:40 PM CDT [facility] CO2 27.4 21 - 32 MMOL/L 12/22/2017 1:40 PM CDT [facility] CALCIUM S/P/B 8.2(L) 8.5 - 10.1 MG/DL 12/22/2017 1:40 PM CDT [facility] BILIRUBIN TOTAL S/P/B 0.2 0.2 - 1.2 MG/DL 12/22/2017 1:40 PM CDT [facility] TOTAL PROTEIN S/P/B 7.0 6.4 - 8.2 G/DL 12/22/2017 1:40 PM CDT [facility] ALBUMIN S/P/B 3.4 3.4 - 5.0 G/DL 12/22/2017 1:40 PM CDT [facility] AST 20 15 - 37 U/L 12/22/2017 1:40 PM CDT [facility] ALT 30 14 - 55 U/L 12/22/2017 1:40 PM CDT [facility] ALKALINE PHOSPHATASE S/P/B 94 50 - 136 U/L 12/22/2017 1:40 PM CDT [facility] ANION GAP 11.2 8 - 20 MMOL/L 12/22/2017 1:40 PM CDT [facility] BUN CREATININE RATIO 11.6 6 - 26 12/22/2017 1:40 PM CDT [facility] A/G RATIO 0.9(L) 1.0 - 2.0 RATIO 12/22/2017 1:40 PM CDT [facility] EGFR NON-AFR. AMER. 66(L) >90 ML/MIN/1.7 3 M2 12/22/2017 1:40 PM T [facility] EGFR AFR. AMER. 76(L) >90 ML/MIN/1.7 3 M2 12/22/2017 1:40 PM T [facility] Comment: NOTE: eGFR is not calculated for patients <18 years of age. This is an estimated GFR (CKD EPI) and should not be used for calculating drug doses. 12/22/2017 8:52 AM CDT Volodymyr Gonzalez MD LABORATORY Final Result [facility] [address] [place] [address], [place] [phone] * (ABNORMAL) CBC W/DIFF AUTOMATED (12/22/2017 8:52 AM CDT) [facility] Signature WBC 5.5 4.8 - 10.8 x10'3/uL 12/22/2017 3:26 PM CDT [facility] RBC 4.69 4.20 - 5.40 x10'6/uL 12/22/2017 3:26 PM CDT [facility] HGB 12.2 12.0 - 16.0 G/DL 12/22/2017 3:26 PM CDT [facility] HCT 40.0 38.0 - 48.0 % 12/22/2017 3:26 PM CDT [facility] MCV 85.3 81.0 - 99.0 FL 12/22/2017 3:26 PM CDT [facility] MCH 26.0(L) 27.0 - 31.0 PG 12/22/2017 3:26 PM CDT [facility] MCHC 30.5(L) 32.0 - 36.0 G/DL 12/22/2017 3:26 PM CDT [facility] RDW 15.7(H) 11.5 - 14.5 % 12/22/2017 3:26 PM CDT [facility] PLT 331 130 - 400 x10'3/uL 12/22/2017 3:26 PM CDT [facility] MPV 10.2 9.3 - 12.2 FL 12/22/2017 3:26 PM CDT [facility] NEUTROPHILS % 47.9 43.0 - 65.0 % 12/22/2017 3:26 PM CDT [facility] LYMPHOCYTES % 39.1 20.0 - 46.0 % 12/22/2017 3:26 PM CDT [facility] MONOCYTES % 9.5 5.0 - 12.0 % 12/22/2017 3:26 PM CDT [facility] EOSINOPHILS 2.4 1.0 - 3.0 % 12/22/2017 3:26 PM CDT [facility] BASOPHILS 0.9 0.0 - 1.0 % 12/22/2017 3:26 PM CDT [facility] IMMATURE GRANS % 0.2 0.0 - 1.0 % 12/22/2017 3:26 PM CDT [facility] 12/22/2017 8:52 AM CDT Volodymyr Gonzalez MD LABORATORY Final Result Performing Organization Address City/[facility] Co de Phone Number [facility] [address] [place] [address], [place] [phone] * D-DIMER, QUANTITATIVE (12/22/2017 8:52 AM CDT) Pathologist [facility] D-DIMER 154 0 - 230 D DU ng/mL 12/22/2017 1:25 PM CDT [facility] Comment: TESTING PERFORMED ON BitPoster ACL TOP 300 ANALYZER. NOTE: RESULTS OF [...] MD LABORATORY Final Result Performing Organization Address City/[facility]/ZIP Co de Phone Number [facility] [address] [place], [place] [address] [phone] documented in this encounter Visit Diagnoses Diagnosis Cough Essential hypertension, malignant Thyroid nodule Nontoxic uninodular goiter Screening cholesterol level Screening for lipoid disorders documented in this encounter Care Teams Grinding Wheel Dresser Relationship Specialty Start Date End Date Volodymyr Gonzalez MD PCP - General INTERNAL MEDICINE 12/22/17 documented as of this encounter
--- OUTSIDE RECORDS SUMMARY | 2024-07-29 18:35 | XMS_ITS | Encounter Summary ---
Author Organization [facility] Address [address] [place] [address]. [place] [address] [place] [address] Care Team Providers Care Tape Recording Machine Operator Name Role Phone Rolando Padilla MD Primary Care Provider [phone] Dianelys Weber MD Primary Care Provider [phone] Dianelys Weber MD Primary Care Provider [phone] Dianelys Weber MD Primary Care Provider [phone] Dianelys Weber MD Primary Care Provider [phone] Dianelys Weber MD Primary Care Provider [phone] Encounter Details Date Type Department Care Team (Late st Contact Info) Description 12/30/2006 Abstract [facility] [address] [place] [address] Jenelle Jean MD Social History Tobacco Use Types Packs/Day Years [...] on filedocumented in this encounter Care Teams Tape Recording Machine Operator Relationship Specialty Start Date End Date Rolando Padilla MD [address] [facility] [address] [place] [address] PCP - General 11/20/16 12/27/16 Dianelys Weber MD [address] [place] [address] PCP - General 03/17/16 11/19/16 Dianelys Weber MD [address] [place] [address] PCP - General 08/07/15 03/16/16 Dianelys Weber MD [address] [place] [address] PCP - General 06/11/15 08/06/15 Dianelys Weber MD [address] [place] [address] PCP - General 05/23/15 06/10/15 Dianelys Weber MD [address] [place] [address] PCP - General 04/04/15 05/22/15 documented as of this encounter
--- OUTSIDE RECORDS SUMMARY | 2024-07-29 18:46 | XMS_ITS | Clinical Summary ---
Author Organization [facility] Address [address] [place] [address] Phone Care Team Providers Care Furnace Tapper Name Role Phone Radha Rivera MD Primary Care Provider +1- [phone] Allergies Active Allergy Reactions Criticality Noted Date Comments Lisinopril Other (see Comments) High 11/11/2023 cough Medications FLUoxetine (PROzac) 20 MG/5ML Solution Active Cholecalcifero l (D3 2000) 2000 UNIT Capsule Active baclofen (LIORESAL) 10 MG Tablet Take 10 mg by mouth 3 times daily as needed for Muscle spasms. 09/28/19 24 Active amLODIPine (NORVASC) 5 MG Tablet 11/04/19 24 Active Cetirizine HCl 10 MG Capsule Active aspirin EC 81 MG Tablet Delayed Response Take 1 Tablet by mouth daily. Active gabapentin (NEURONTIN) 100 MG Capsule TAKE two CAPSULEs BY MOUTH 3 TIMES A DAY Active fluticasone (FLONASE) 50 MCG/ACT Suspension 1 [place] by Nasal route daily. Use in each nostril as directed. 16 g 1 03/23/20 24 Active meloxicam (MOBIC) 15 MG TabletIndicati ons:Chronic pain of left knee TAKE 1 TABLET BY MOUTH DAILY 90 Tablet 06/16/20 24 Active Ozempic, 2 MG/DOSE, 8 MG/3ML Solution Pen-injectorIn dications:Clas s 2 obesity without serious comorbidity with body mass index (BMI) of 36.0 to 36.9 in adult, unspecified obesity type INJECT 2 MG SUBCUTANEOUS ROUTE ONCE A WEEK FOR 28 DAYS 3 mL 07/24/20 24 Active Ozempic, 2 MG/DOSE, 8 MG/3ML Solution Pen-injectorIn dications:Clas s 2 obesity without serious comorbidity with body mass index (BMI) of 36.0 to 36.9 in adult, unspecified obesity type 2 mg by Subcutaneous route once a week for 28 days. 3 mL 06/29/20 24 024 Discontinued Active Problems No known active problems Encounters Date Type Department Care Team Description 07/24/2024 [address] [place] [address] Radha Rivera MD Medication Refill 06/29/[address] [address] Radha Rivera MD Medication Refill 06/16/[address] [address] Radha Rivera MD Medication Refill 05/29/[address] [facility] [address] [address] Radha Rivera MD Medication Refill from Last 3 Months Immunizations Immunization Administration Dates Next Due Covid-19, Mrna, Lnp-s, Pf, 1 00 Mcg Or 50 Mcg Dose (MODERNA) 11/11/2020,10/21/2020 Influenza Vaccine, Quadrivalent, PF 03/21/2023,1 ,07/02/2021 Influenza Vaccine,unspecified Formulation 2022,04/05/2019 Influenza, Injectable, Quadrivalent 05/15/2020,1 Influenza, Seasonal, Injectable, Undefined 07/09 Influenza, high-dose, trivalent, PF 04/25/2024 Pneumococcal Vaccine - 13 Valent 08/29/2020 Pneumococcal Vaccine Adult - 23 Valent TDAP Vaccine 07/02/2021 Zoster Vaccine Recombinant 03/13/2023,10/18/2022 Family History Medical History Relation Name Comments No Known Problems Father No Known Problems Maternal Grandfather Alzheimer's Disease Maternal Grandmother No Known Problems Mother No Known Problems Paternal Grandfather Breast Cancer Paternal Grandmother Relation Name Status Comments Father Maternal Grandfather Maternal Grandmother Mother Alive Paternal Grandfather Paternal Grandmother Social History Tobacco Use Types Packs/Day Years Used Date Smoking Tobacco: Never Passive Smoke Exposure: Never Smokeless Tobacco: Never Alcohol Use Standard Drinks/Week Comments Never 0 (1 standard drink = 0.6 oz pur e alcohol) Sexually Active Control Partners Comments Not Currently Comments Unknown Sex and Gender Information Value Date Recorded Sex Assigned at Female 11/14/2023 10:43 AM CDT Legal Sex 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 PM CAR 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 Gender Identity Female 11/14/2023 10:43 AM CDT Sexual Orientation Not on file Last Filed Vital Signs Vital Sign Reading Time Taken Comments Blood Pressure 118/74 11/16/2023 8:02 AM CDT Pulse 77 11/16/2023 8:02 AM CDT Temperature 36.6 ??C (97.9 ??F) 11/16/2023 8:02 AM CD T Respiratory Rate 20 11/16/2023 8:02 AM CDT Oxygen Saturation 97% 11/16/2023 8:02 AM CDT Inhaled Oxygen Concentration - - Weight 100.4 kg (221 lb 6.4 oz) 11/16/2023 8:02 AM CDT Height 166.4 cm (5' 5.5 ) 11/16/2023 8:02 AM CDT Body Mass Index 36.28 11/16/2023 8:02 AM CDT Plan of Treatment Health Maintenance Due Date Last Done Comments DEXA Bone Density 1958 Mammogram 1968 Colonoscopy 2003 Colorectal Cancer Screening 2003 Cologuard 2008 Immunochemical Fecal Occult Blood 2008 SARS-COV-2 Immunization ( season) 2024 07/15/2021, 11/11/2020, 10/21/2020 Pneumococcal Immunization (50+ years) (3 of 3 - PPSV23 or PCV20) 03/21/2028 03/21/2023, 08/29/2020 Td Immunization Every 10 Years (Adults With 1 Tdap) 07/02/2031 07/02/2021 Respiratory Syncytial Virus (RSV) Immunization (Adult) (1 - 1-dose 75+ series) 2033 Hepatitis C Virus (HCV) Screening Completed 11/20/2016 DTaP/Tdap/Td Immunization Discontinued 07/02/2021 Zoster Immunization Completed 03/13/2023, Influenza Immunization Completed 4, 05/09/2023, 03/21/2023, Additional history exists Hepatitis B Immunization Aged Out No longer eligible based on patient's age to complete this topic Meningococcal Immunization (ACWY) Aged Out No longer eligible based on patient's age to complete this topic Rotavirus Immunization Aged Out No lo nger eligible based on patient's age to complete this topic Procedures Procedure Name Priority Date/Time Associated Diagnosis Comments EXTERNAL PAIN REFERRAL Routine 12:00 AM CAR REPAIRER HELPER Chronic pain of left knee from Last 3 Months Results * EXTERNAL PAIN REFERRAL (07/12/2024 12:00 AM CAR REPAIRER HELPER) 07/12/2024 Radha Rivera MD OUTPT REFERRALS EXT/INT Fi nal Result SCAN from Last 3 [place] [address] MEDICARE C [email or web address] Care Teams Furnace Tapper Relationship Specialty Start Date End Date Radha Rivera MD [address] [place] [address] PCP - General Family Medicine 11/16/23
--- OUTSIDE RECORDS SUMMARY | 2024-07-29 18:47 | XMS_ITS | Encounter Summary ---
Author Organization [facility] Address [address] [place] [address] Phone Care Team Providers Care Placement Specialist Name Role Phone Radha Rivera MD Primary Care Provider [phone]- [phone] Reason for Visit * Reason Onset Date Comments Prior Authorization 12/16/2023 semaglutide, 0.25 or 0.5MG/DOS, (OZEMPIC) 2 MG/3ML Solution Pen-injectorINSURANCE DENIED-liraglutide (VICTOZA) 18 MG/3ML Solution Pen-injector Encounter Details Date Type Department Care Team (Late st Contact Info) Description 12/16/2023 Telephone [facility] - Primary Care - [place] [address] [place] [address] Radha Rivera MD [address] 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 ALSO, RAN THROUGH INSURANCE, STATES NO PRIOR AUTH REQUIRED. ORLANDO LAND CMA Medication Prior Authorization * Telephone Encounter - Orlando Land CMA - 12/21/2023 2:32 PM CDT Current PA Status: Denied Denial Reasoning: Must have tried and failed the medications listed on the formulary 1. Option for Formulary or Alternatives: Please see denial attached for further information. 2. Option to Appeal by either telephone or peer to peer consultation 3. Option to have patient utilize coupon or discount card for future scripts Routed to provider to review and follow up on patient care plan. ORLANDO LAND CMA Medication Prior Authorization * Telephone Encounter - Orlando Land CMA - 12/21/2023 2:12 PM CDT liraglutide (VICTOZA) 18 MG/3ML Solution Pen-injector PA has been created and sent to Prior Authorization Work Queue to be worked Please see media tab for PA updates If this is an urgent need, please reach out to [facility] PA corrugator supervisor PA submitted. Submitted questions. * Addendum Note - Isaiah Flores RN - 12/21/2023 11:32 AM CDTAddended by: ISAIAH FLORES. on: 12/21/2023 11:32 AM Modules accepted: Orders * Telephone Encounter - Isaiah Flores RN - 12/21/2023 11:31 AM CDT Medication was written in [place] encounter. Reordered and restarted PA in [place] encounter so PA can be worked. * Telephone Encounter - Isaiah Flores RN - 12/16/2023 1:19 PM CDT Prior authorization request received from pharmacy for victoza. ePA requested. documented in this encounter Plan of Treatment Not on file documented as of this encounter Visit Diagnoses Diagnosis Hyperglycemia due to diabetes mellitus (HCC) documented in this encounter Care Teams Placement Specialist Relationship Specialty Start Date End Date Radha Rivera MD [address] [place] [address] PCP - General Family Medicine 11/16/23 documented as of this encounter
--- OUTSIDE RECORDS SUMMARY | 2024-07-29 18:47 | XMS_ITS | Encounter Summary ---
Author Organization [facility] Address [address] [place] [address] Phone Care Team Providers Care Fructose Loader Name Role Phone Radha Rivera MD Primary Care Provider [phone]- [phone] Reason for Visit * Reason Comments Medication Refill Encounter Details Date Type Department Care Team (Late st Contact Info) Description 06/29/2024 Refill [facility] - Primary Care - [place] [address] [place] [address] Radha Rivera MD [address] [place] [address] Medication Refill Social History Tobacco Use Types Packs/Day Years [...] AM CDT Legal Sex 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 PM CEMENT CUTTER Gender Identity Female 11/14/2023 10:43 AM CDT Sexual Orientation Not on file documented as of this encounter Miscellaneous Notes * Telephone Encounter - Radha Rivera MD - 06/29/2024 7:56 PM CEMENT CUTTER Patient's dose of Ozempic increased. NT CUTTER documented in this encounter Plan of Treatment Not on file documented as of this encounter Visit Diagnoses Diagnosis Class 2 obesity without serious comorbidity with body mass index (BMI) of 36.0 to 36.9 in adult, unspecified obesity type documented in this encounter Care Teams Fructose Loader Relationship Specialty Start Date End Date Radha Rivera MD [address] [place] [address] PCP - General Family Medicine 11/16/23 documented as of this encounter
--- OUTSIDE RECORDS SUMMARY | 2024-07-29 18:47 | XMS_ITS | Encounter Summary ---
Author Organization [facility] Address [address] [place] [address] Phone Care Team Providers Care Frit Mixer And Burner Name Role Phone Unavailable Primary Care Provider Unavailabl e Reason for Visit * Reason Onset Date Comments New Patient 10/12/2023 Encounter Details Date Type Department Care Team ([facility] st Contact Info) Description 10/12/2023 Telephone [facility] [address] [place] [id number] Provider, None [place] New Patient Social History Tobacco Use Types Packs/Day Years Used Date Smoking Tobacco: Never Assessed Comments Unknown Sex and Gender Information Value Date Recorded Sex Assigned at Female 11/14/2023 10:43 AM CDT Legal Sex 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 PM STOCK PULLER Gender Identity Female 11/14/2023 10:43 AM CDT Sexual Orientation Not on file documented as of this encounter Miscellaneous Notes * Telephone Encounter - Kenisha Rojas - 10/13/2023 11:19 AM CST Incoming call from patient--appointment scheduled K PULLER * Telephone Encounter - Elver Pacheco - 10/12/2023 12:54 PM CST ----- Message from Nery Gamboa sent at 10/12/2023 12:21 PM STOCK PULLER ----- Regarding: establish care [facility] Provider Request Insurance of patient: [facility] Name of person calling: [place] Relationship to patient: self Preferred phone number: [phone] Alternate phone number: n/a Region / Office location preference: [place] Provider preference (male/female, specific provider name): female Willing to see someone other than physician, such as CLERK TRAVEL RESERVATIONS, PA, resident? yes Patient reason for appointment/any current symptoms: establish care Other information (including need for drag car racer): no Route ALL calls to: [facility] K PULLER documented in this encounter Plan of Treatment Not on file documented as of this encounter Visit Diagnoses Not on filedocumented in this encounter
--- OUTSIDE RECORDS SUMMARY | 2024-07-29 18:47 | XMS_ITS | Encounter Summary ---
Author Organization [facility] Address [address] [place] [address] Phone Care Team Providers Care Die Machine Operator Name Role Phone Radha Rviera MD Primary Care Provider +1- [phone] Encounter Details Date Type Department Care Team (Late st Contact Info) Description 11/16/2023 11:50 AM CDT Lab [facility] - Primary Care [address] [address] [facility] Chronic pain of left knee; Hyperglycemia due to diabetes mellitus (HCC); Alopecia Discharge Disposition: Discharged to home or Selfcare Social History Tobacco Use Types Packs/Day Years [...] AM CDT 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 Specimen collected from right antecubital without incident. sah * Radha Rivera MD - 11/16/2023 11:50 AM CDT Blood sugar, kidney, and liver tests are normal.Cholesterol is high at 240. Cut back on fried foods, cream sauce, and large amounts of red meat. Triglycerides are normal. Thyroid is normal. * Radha Rivera MD - 11/16/2023 11:50 AM CDT Your blood count shows different types of white blood cells that fight infection. The differential test was basically close to normal. documented in this encounter Plan of Treatment Not on file documented as of this encounter Procedures Procedure Name Priority Date/Time Associated Diagnosis Comments THYROID SCREEN WITH REFLEX Routine 11/16/2023 9:24 AM CDT Alopecia THYROID SCREEN WITH REFLEX Routine 11/16/2023 9:24 AM CDT Alopecia MANUAL DIFFERENTIAL Routine 11/16/2023 9 :24 AM CDT Chronic pain of left knee CBC WITH AUTO DIFFERENTIAL Routine 11/16/2023 9:24 AM CDT Chronic pain of left knee LIPID PANEL Routine 11/16/2023 9:24 AM CDT Hyperglycemia due to diabetes mellitus (HCC) CMP (COMPREHENSIVE METABOLIC PANEL) Routine 11/16/2023 9:24 AM CDT Hyperglycemia due to diabetes mellitus (HCC) COMPLETE BLOOD COUNT (CBC) WITH DIFF Routine 11/16/2023 9:24 AM CDT Chronic pain of left knee documented in this encounter Results * (ABNORMAL) MANUAL DIFFERENTIAL (11/16/2023 9:24 AM CDT) NEUTROPHILS % 43.0(L) 47.0 - 73.0 % 11/16/2023 1:22 PM CDT [facility] LYMPHOCYTES % 43.0(H) 18.0 - 42.0 % 11/16/2023 1:22 PM CDT [facility] MONOCYTES % 11.0 4.0 - 12.0 % 11/16/2023 1:22 PM CDT [facility] EOSINOPHILS % 3.0 0.0 - 5.0 % 11/16/2023 1:22 PM CDT [facility] NEUTROPHILS ABSOLUTE 2.86 1.60 - 7.70 10(3)/mcL 11/16/2023 1:22 PM CDT [facility] LYMPHOCYTES ABSOLUTE 2.86 1.30 - 3.20 10(3)/mcL 11/16/2023 1:22 PM CDT [facility] MONOCYTES ABSOLUTE 0.73 0.20 - 1.00 10(3)/mcL 11/16/2023 1:22 PM CDT [facility] EOSINOPHILS ABSOLUTE 0.20 0.00 - 0.40 10(3)/mcL 11/16/2023 1:22 PM CDT [facility] WBC MORPH STATUS Normal 11/16/19 24 1:22 PM CDT [facility] RBC MORPH STATUS Normal 11/16/19 24 1:22 PM CDT [facility] PLATELET STATUS Normal 1:22 PM CDT [facility] Blood Venipuncture / Unknown 11/16/2023 9:24 AM CDT 11/16/2023 9:24 AM CDT us Radha Rivera MD HEMATOLOGY ORDERABLES Jaqui l Result [facility] [address] [place] [address] * THYROID SCREEN WITH REFLEX (11/16/2023 9:24 AM CDT) [facility] TSH 0.607 0.300 - 5.000 mIU/L 11/16/2023 1:03 PM CDT [facility] Blood Venipuncture / Unknown 11/16/2023 9:24 AM CDT 11/16/2023 9:24 AM CDT us Radha Rivera MD CHEMISTRY ORDERABLES Final Result [facility] [address] [place] [address] * CBC WITH AUTO DIFFERENTIAL (11/16/2023 9:24 AM CDT) [facility] WBC 6.64 4.00 - 12.00 10(3)/mcL 11/16/2023 1:22 PM CDT [facility] RBC 4.91 3.80 - 5.30 10(6)/mcL 11/16/2023 1:22 PM CDT [facility] HEMOGLOBIN (HGB) 13.1 12.0 - 15.8 g/dL 11/16/2023 1:22 PM CDT [facility] HEMATOCRIT (HCT) 41.7 36.0 - 47.0 % 11/16/2023 1:22 PM CDT [facility] MCV 84.9 82.0 - 96.0 fL 11/16/2023 1:22 PM CDT [facility] MCH 26.7 26.0 - 34.0 pg 11/16/2023 1:22 PM CDT [facility] MCHC 31.4 31.0 - 36.0 g/dL 11/16/2023 1:22 PM CDT [facility] PLATELET COUNT 359 140 - 440 10(3)/mcL 11/16/2023 1:22 PM CDT [facility] RDW 15.4 11.8 - 15.5 % 11/16/2023 1:22 PM CDT [facility] MPV 10.0 9.7 - 12.4 fL 11/16/2023 1:22 PM CDT [facility] NRBC PER 100 WBC 0 11/16/2023 1:22 PM CDT [facility] RESULTS ARE CONSISTENT WITH PERIPHERAL SMEAR REVIEW Yes 11/16/2023 1:22 PM CDT [facility] Blood Venipuncture / Unknown 11/16/2023 9:24 AM CDT 11/16/2023 9:24 AM CDT us Radha Rivera MD HEMATOLOGY ORDERABLES Jaqui l Result [facility] [place] [address] * (ABNORMAL) LIPID PANEL (11/16/2023 9:24 AM CDT) CHOLESTEROL 240(H) <200 mg/dL 11/16/2023 1:05 PM CDT [facility] TRIGLYCERIDES 115 <150 mg/dL 11/16/2023 1:05 PM CDT [facility] HDL CHOLESTEROL 52 >40 mg/dL 1:05 PM CDT [facility] LDL 165(H) <130 mg/dL 11/16/2023 1:05 PM CDT [facility] VLDL 23 10 - 50 mg/dL 11/16/2023 1:05 PM CDT [facility] CHOL/HDL RATIO 4.6(H) 0.0 - 4.4 11/16/2023 1:05 PM CDT [facility] NON-HDL CHOLESTEROL 188(H) <130 mg/dL 11/16/2023 1:05 PM CDT [facility] IS THE PATIENT REQUIRED TO BE FASTING? Yes 11/16/2023 1:05 PM CDT [facility] HAS THE PATIENT BEEN FASTING? Yes 11/16/2023 1:05 PM CDT [facility] Blood Venipuncture / Unknown 11/16/2023 9:24 AM CDT 11/16/2023 9:24 AM CDT us Radha Rivera MD CHEMISTRY ORDERABLES Final Result [facility] [address] [place] [address] * (ABNORMAL) CMP (COMPREHENSIVE METABOLIC PANEL) (11/16/2023 9:24 AM CDT) SODIUM 141 136 - 145 mmol/L 11/16/2023 1:05 PM CDT [facility] POTASSIUM 3.9 3.5 - 5.1 mmol/L 11/16/2023 1:05 PM CDT [facility] CHLORIDE 105 98 - 107 mmol/L 11/16/2023 1:05 PM CDT [facility] CO2, VENOUS 27 22 - 30 mmol/L 11/16/2023 1:05 PM CDT [facility] ANION GAP 12.9 <18.0 mmol/L 11/16/2023 1:05 PM CDT [facility] GLUCOSE 83 70 - 99 mg/dL 11/16/2023 1:05 PM CDT [facility] BUN 13 10 - 20 mg/dL 11/16/2023 1:05 PM CDT [facility] CREATININE, BLOOD 0.95 0.60 - 1.00 mg/dL 11/16/2023 1:05 PM CDT [facility] BUN/CREATININE RATIO 14 12 - 20 ratio 11/16/2023 1:05 PM CDT [facility] TOTAL PROTEIN 7.6 6.3 - 8.2 g/dL 11/16/2023 1:05 PM CDT [facility] ALBUMIN 4.0 3.5 - 5.0 g/dL 11/16/2023 1:05 PM CDT [facility] A/G RATIO 1.1 1.0 - 2.2 11/16/2023 1:05 PM CDT [facility] CALCIUM 9.8 8.7 - 10.5 mg/dL 11/16/2023 1:05 PM CDT [facility] T BILI 0.2 0.2 - 1.2 mg/dL 11/16/2023 1:05 PM CDT [facility] SGOT (AST) 19 5 - 34 U/L 11/16/2023 1:05 PM CDT [facility] SGPT (ALT) 28 0 - 55 U/L 11/16/2023 1:05 PM CDT [facility] ALKALINE PHOSPHATASE 95 40 - 150 U/L 11/16/2023 1:05 PM CDT [facility] IS THE PATIENT REQUIRED TO BE FASTING? Yes 11/16/2023 1:05 PM CDT [facility] HAS THE PATIENT BEEN FASTING? Yes 11/16/2023 1:05 PM CDT [facility] GFR, ESTIMATED >60 >=60 11/16/2023 1:05 PM CDT [facility] Comment: Creatinine Clearance is the preferred criteria for selecting drug dose adjustments in renally impaired patients. ??The GFR is provided as additional pertinent clinical information. GFR is reported in mL/min/1.73 sq m. Calculation based on the Chronic Kidney Disease Epidemiology Collaboration (CKD- EPI) equation refit without adjustment for race. GFR, EST. >60 >=60 024 1:05 PM CDT [facility] GFR, EST. NONAFRICAN 59(L) >=60 11/16/2023 1:05 PM CDT [facility] Blood Venipuncture / Unknown 11/16/2023 9:24 AM CDT 11/16/2023 9:24 AM CDT us Radha Rivera MD CHEMISTRY ORDERABLES Final Result [facility] [place] [address] documented in this encounter Visit Diagnoses Diagnosis Chronic pain of left knee Pain in joint, lower leg Hyperglycemia due to diabetes mellitus (HCC) Alopecia Alopecia, unspecified documented in this encounter Care Teams Die Machine Operator Relationship Specialty Start Date End Date Radha Rivera MD [address] [place] [address] PCP - General Family Medicine 11/16/23 documented as of this encounter
--- OUTSIDE RECORDS SUMMARY | 2024-07-29 18:47 | XMS_ITS | Encounter Summary ---
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
--- OUTSIDE RECORDS SUMMARY | 2024-07-29 18:47 | XMS_ITS | Encounter Summary ---
Author Organization [facility] Address [address] [place] [address] Phone Care Team Providers Care Timber Estimator Name Role Phone Radha Rivera MD Primary Care Provider +1- [phone] Reason for Visit * Reason Comments Medication Refill Encounter Details Date Type Department Care Team (Late st Contact Info) Description 05/29/2024 Refill [facility] - Primary Care - [place] [address] [place] [address] Radha Rivera MD [address] 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 documented in this encounter Plan of Treatment Not on file documented as of this encounter Visit Diagnoses Diagnosis Chronic pain of left knee Pain in joint, lower leg documented in this encounter Care Teams Timber Estimator Relationship Specialty Start Date End Date Radha Rivera MD [address] [place] [address] PCP - General Family Medicine 11/16/23 documented as of this encounter
--- OUTSIDE RECORDS SUMMARY | 2024-07-29 18:47 | XMS_ITS | Encounter Summary ---
Author Organization [facility] Address [address] [place] [place] [address] Phone Care Team Providers Care Chief Of Harbor Patrol Name Role Phone Radha Rivera MD Primary Care Provider +1- [phone] Reason for Visit * Reason Onset Date Comments Medication Refill 12/15/2023 Encounter Details Date Type Department Care Team (Late st Contact Info) Description 12/15/2023 Telephone [facility] - Family [facility] [address] [place] [address] Radha Rivera MD [address] [facility] 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 [facility] was advised by patient she is only injecting 1.6 mg daily. [facility] would like to know if pcp will send in a new script to reflect the 1.6 mg injection? Prescription has been rewritten. Radha Rivera MD 12-15-2023. documented in this encounter Plan of Treatment Not on file documented as of this encounter Visit Diagnoses Diagnosis Hyperglycemia due to diabetes mellitus (HCC) documented in this encounter Care Teams Chief Of Harbor Patrol Relationship Specialty Start Date End Date Radha Rivera MD [address] [place] [address] PCP - General Family Medicine 11/16/23 documented as of this encounter
--- OUTSIDE RECORDS SUMMARY | 2024-07-29 18:47 | XMS_ITS | Encounter Summary ---
Author Organization [facility] Address [address] [place] [address] [place] [address] Phone Care Team Providers Care Reconstructive Surgeon Name Role Phone Radha iRvera MD Primary Care Provider +1- [phone] Reason for Visit * Reason Comments Medication Refill Encounter Details Date Type Department Care Team (Late st Contact Info) Description 06/16/2024 Refill [facility] - Primary Care - [place] [address] [place] [address] Radha Rivera MD [address] 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 Requested Prescriptions Pending Prescriptions Disp Refills meloxicam (MOBIC) 15 MG Tablet [Pharmacy Med Name: Meloxicam 15 MG Oral Tablet] 90 Tablet 0 Sig: TAKE 1 TABLET BY MOUTH DAILY NSAIDs Protocol Failed - 06/16/2024 9:00 AM Failed - Not delegated, patient not between 1 and 65 years of age Passed - Normal serum creatinine in past 12 months CREATININE, BLOOD Date Value Ref Range Status 11/16/2023 0.95 0.60 - 1.00 mg/dL Final Passed - Visit with relevant provider in past 12 months or upcoming 90 days Recent Visits Date Type Provider Dept 11/16/23 Office Visit Radha Rivera MD [facility] Showing recent visits within past 365 days and meeting all other requirements Future Appointments No visits were found meeting these conditions. Showing future appointments within next 90 days and meeting all other requirements Passed - No matching NSAID med order in past 45 days No matching medication orders between 05/02/2024 9:12 AM and 06/16/2024 9:12 AM Passed - AST less than 55 or ALT less than 90 in past 12 months SGOT (AST) Date Value Ref Range Status 11/16/2023 19 5 - 34 U/L Final SGPT (ALT) Date Value Ref Range Status 11/16/2023 28 0 - 55 U/L Final Passed - HGB greater than 10 or HCT greater than 30 in past 12 months HEMOGLOBIN (HGB) Date Value Ref Range Status 11/16/2023 13.1 12.0 - 15.8 g/dL Final HEMATOCRIT (HCT) Date Value Ref Range Status 11/16/2023 41.7 36.0 - 47.0 % Final STANT BRANCH MANAGER documented in this encounter Plan of Treatment Not on file documented as of this encounter Visit Diagnoses Diagnosis Chronic pain of left knee Pain in joint, lower leg documented in this encounter Care Teams Reconstructive Surgeon Relationship Specialty Start Date End Date Radha Rivera MD [address] [place] [address] PCP - General Family Medicine 11/16/23 documented as of this encounter
--- OUTSIDE RECORDS SUMMARY | 2024-07-29 18:47 | XMS_ITS | Encounter Summary ---
Author Organization [facility] Address [address] [place] [address] Phone Care Team Providers Care Yard Attendant Name Role Phone Radha Rivera MD Primary Care Provider +1- [phone] Reason for Visit * Reason Onset Date Comments Medication Refill 11/17/2023 Encounter Details Date Type Department Care Team (Late st Contact Info) Description 11/17/2023 Telephone [facility] - Family [facility] [address] [place] [id number] Radha Rivera MD [address] 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 on: 11/17/2023 01:49 PM Modules accepted: Orders * Telephone Encounter - Sandi Soto MA - 11/17/2023 10:40 AM CDT Message left on medication refill voice mail: Cole @ [facility] needs dose clarification on Victoza 18 mg/3 ml solution script states inject 4.5 mg subcutaneous per pharmacy the maximum dose is 3 mg daily. Please call @[phone] documented in this encounter Plan of Treatment Not on file documented as of this encounter Visit Diagnoses Diagnosis Hyperglycemia due to diabetes mellitus (HCC) documented in this encounter Care Teams Yard Attendant Relationship Specialty Start Date End Date Radha Rivera MD [address] [place] [address] PCP - General Family Medicine 11/16/23 documented as of this encounter
--- OUTSIDE RECORDS SUMMARY | 2024-07-29 18:47 | XMS_ITS | Encounter Summary ---
Author Organization [facility] Address [address] [place] [place] [address] Phone Care Team Providers Care Nuclear Monitoring Technician Name Role Phone Radha Rivera MD Primary Care Provider +1- [phone] Reason for Visit * Reason Comments Medication Refill Encounter Details Date Type Department Care Team (Late st Contact Info) Description 07/24/2024 Refill [facility] - Primary Care - [place] [address] [place] [address] Radha Rivera MD [address] 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 Requested Prescriptions Pending Prescriptions Disp Refills Ozempic, 2 MG/DOSE, 8 MG/3ML Solution Pen-injector [Pharmacy Med Name: Ozempic (2 MG/DOSE) 8 MG/3MLSubcutaneous Solution Pen-injector] 3 mL 0 Sig: INJECT 2 MG SUBCUTANEOUS ROUTE ONCE A WEEK FOR 28 DAYS GLP-1 Agonists Protocol Failed - 07/24/2024 10:10 AM Failed - Visit with relevant provider in past 6 months or upcoming 90 days Recent Visits No visits were found meeting these conditions. Showing recent visits within past 182 days and meeting all other requirements Future Appointments No visits were found meeting these conditions. Showing future appointments within next 90 days and meeting all other requirements Failed - HgA1C result on record in past 6 months No results found for: HGBA1C Failed - GFR on record in past 6 months GFR, EST. Date Value Ref Range Status 11/16/2023 >60 >=60 Final Passed - Lipid panel result on file in past 12 months LDL Date Value Ref Range Status 11/16/2023 165 (H) <130 mg/dL Final HDL CHOLESTEROL Date Value Ref Range Status 11/16/2023 52 >40 mg/dL Final CHOLESTEROL Date Value Ref Range Status 11/16/2023 240 (H) <200 mg/dL Final TRIGLYCERIDES Date Value Ref Range Status 11/16/2023 115 <150 mg/dL Final VLDL Date Value Ref Range Status 11/16/2023 23 10 - 50 mg/dL Final CHOL/HDL RATIO Date Value Ref Range Status 11/16/2023 4.6 (H) 0.0 - 4.4 Final NON-HDL CHOLESTEROL Date Value Ref Range Status 11/16/2023 188 (H) <130 mg/dL Final HERMAL SYSTEM INSTALLER documented in this encounter Plan of Treatment Not on file documented as of this encounter Visit Diagnoses Diagnosis Class 2 obesity without serious comorbidity with body mass index (BMI) of 36.0 to 36.9 in adult, unspecified obesity type documented in this encounter Care Teams Nuclear Monitoring Technician Relationship Specialty Start Date End Date Radha Rivera MD [address] [place] [address] PCP - General Family Medicine 11/16/23 documented as of this encounter
--- OUTSIDE RECORDS SUMMARY | 2024-07-29 18:47 | XMS_ITS | Encounter Summary ---
Author Organization [facility] Address [address] [place] [address] Phone Care Team Providers Care Cloth Handler Name Role Phone Radha Rivera MD Primary Care Provider +1- [phone] Encounter Details Date Type Department Care Team (Late st Contact Info) Description 12/29/2023 Telephone [facility] - Primary Care - [place] [address] [place] [address] Radha Rivera MD [address] 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 Requested Prescriptions Pending Prescriptions Disp Refills meloxicam (MOBIC) 15 MG Tablet 90 Tablet 0 Sig: Take 1 Tablet by mouth daily. NSAIDs Protocol Failed - 12/29/2023 9:24 AM Failed - No matching NSAID med order in past 45 days Matching medication order placed on 12/22/2023 3:12 PM Order [id number]: meloxicam (MOBIC) 15 MG Tablet (For orders placed between 11/14/2023 9:24 AM and 12/29/2023 9:24 AM) Passed - Normal serum creatinine in past 12 months CREATININE, BLOOD Date Value Ref Range Status 11/16/2023 0.95 0.60 - 1.00 mg/dL Final Passed - Visit with relevant provider in past 12 months or upcoming 90 days Recent Visits Date Type Provider Dept 11/16/23 Office Visit Radha Rivera MD [facility] Showing recent visits within past 365 days and meeting all other requirements Future Appointments No visits were found meeting these conditions. Showing future appointments within next 90 days and meeting all other requirements Passed - AST less than 55 or [...] 11/16/2023 41.7 36.0 - 47.0 % Final semaglutide,0.25 or 0.5MG/DOS, (OZEMPIC) 2 MG/3ML Solution Pen-injector 1.5 mL 2 Si.25 mg by Subcutaneous route once a week for 90 days. GLP-1 Agonists Protocol Failed - 12/29/2023 9:24 AM Failed - HgA1C result on record in past 6 months No results found for: HGBA1C Passed - Lipid panel result on file [...] Status 11/16/2023 188 (H) <130 mg/dL Final Passed - Visit with relevant provider in past 6 months or upcoming 90 days Recent Visits Date Type Provider Dept 11/16/23 Office Visit Radha Rivera MD [facility] Showing recent visits within past 182 days and meeting all other requirements Future Appointments No visits were found meeting these conditions. Showing future appointments within next 90 days and meeting all other requirements Passed - GFR on record in past 6 months GFR, EST. Date Value Ref Range Status 11/16/2023 >60 >=60 Final * Telephone Encounter - Isaiah Flores RN - 12/29/2023 9:23 AM CDT Received fax from [employer] requesting refill on ozempic and meloxicam. Order(s) pended. documented in this encounter Plan of Treatment Not on file documented as of this encounter Visit Diagnoses Diagnosis Chronic pain of left knee Pain in joint, lower leg Class 2 obesity without serious comorbidity with body mass index (BMI) of 36.0 to 36.9 in adult, unspecified obesity type documented in this encounter Care Teams Cloth Handler Relationship Specialty Start Date End Date Radha Rivera MD [address] [place] [address] PCP - General Family Medicine 11/16/23 documented as of this encounter
--- OUTSIDE RECORDS SUMMARY | 2024-07-29 18:47 | XMS_ITS | Encounter Summary ---
Author Organization [facility] Address [address] [place] [place] [address] Phone Care Team Providers Care Plasterer Tender Name Role Phone Radha Rivera MD Primary Care Provider +1- [phone] Reason for Referral * Consult, Test & Initiate Treatment (Less Than 4 Weeks) - Closed Specialty Diagnoses / Procedures Referred By Ramos thacker Referred To Contact Diagnoses Chronic pain of left knee Radha Rivera MD [address] [place] [address] Phone: tel: fax: Provider, Not On File DC Referral ID Status Reason Start Date Expiration Date Visits Re quested Visits Authorized [id number] Closed 11/17/2023 1 1 Scheduling Instructions Seble is being referred to Dr. Gt Smyth, Cole Miramontes, Aleks Wood, or Jacky Ferraro in [facility] or other specialist in patient's insurance network for chronic left knee pain. See below for Seble's current medications, allergies and problem list. CURRENT MEDS: Current Outpatient Medications: amLODIPine (NORVASC) 5 MG Tablet, , Disp: , Rfl: aspirin EC 81 MG Tablet Delayed Response, Take 1 Tablet by mouth daily., Disp: , Rfl: baclofen (LIORESAL) 10 MG Tablet, Take 10 mg by mouth 3 times daily as needed for Muscle spasms., Disp: , Rfl: Cetirizine HCl 10 MG Capsule, , Disp: , Rfl: Cholecalciferol (D3 2000) 2000 UNIT Capsule, , Disp: , Rfl: FLUoxetine (PROzac) 20 MG/5ML Solution, , Disp: , Rfl: fluticasone (FLONASE) 50 MCG/ACT Suspension, [place] 1 spray every day by intranasal route., Disp: , Rfl: gabapentin (NEURONTIN) 100 MG Capsule, TAKE two CAPSULEs BY MOUTH 3 TIMES A DAY, Disp: , Rfl: liraglutide (VICTOZA) 18 MG/3ML Solution Pen-injector, 4.5 mg by Subcutaneous route daily., Disp: 18 mL, Rfl: 6 meloxicam (MOBIC) 15 MG Tablet, , Disp: , Rfl: Victoza 18 MG/3ML Solution Pen-injector, INJECT 0.6 MG SUBCUTANEOUSLY FOR 4 DAYS THEN INJECT 1.2MG EVERY DAY, Disp: , Rfl: No current facility-administered medications for this visit. ALLERGIES: -- Lisinopril -- Other (see Comments) -- cough PROBLEM LIST: There is no problem list on file for this patient. Reason for Visit * Reason Onset Date Comments Referral 11/17/2023 Ortho Encounter Details Date Type Department Care Team (Late st Contact Info) Description 11/17/2023 Telephone [facility] - Primary Care - [place] [address] [place] [address] Radha Rivera MD [address] 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 * Telephone Encounter - Rita Flowers RN - 11/17/2023 1:14 PM CDT Radha Rivera MD Eckhouse, Molly, RN; P [facility] Nurse Care Team 2 Pool Please see if patient could see Dr. Gt Smyth, Cole Miramontes, Aleks Wood, or Jacky Ferraro, who would be closer to her home in [place]. documented in this encounter Plan of Treatment Scheduled Referrals Name Type Priority Associated Diagnoses Order Schedule EXTERNAL ORTHOPEDIC REFERRAL Outpatient Referral Less Than 4 weeks Chronic pain of left knee Expected: 11/17/2023, Expires: 11/16/2024 documented as of this encounter Visit Diagnoses Diagnosis Chronic pain of left knee- Primary Pain in joint, lower leg documented in this encounter Care Teams Plasterer Tender Relationship Specialty Start Date End Date Radha Rivera MD [address] [place] [address] PCP - General Family Medicine 11/16/23 documented as of this encounter
--- OUTSIDE RECORDS SUMMARY | 2024-07-29 18:47 | XMS_ITS | Encounter Summary ---
Author Organization [facility] Address [address] [place] [place] [address] Phone Care Team Providers Care Environmental Designer Name Role Phone Radha Rivera MD Primary Care Provider +1- [phone] Reason for Visit * Reason Onset Date Comments Results 11/16/2023 Labs Encounter Details Date Type Department Care Team (Late st Contact Info) Description 11/16/[address] [facility] - Primary Care - [place] [address] [place] [address] Radha Rivera MD [address] 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 The differential test was basically close to normal. * Telephone Encounter - Rita Flowers RN - 11/16/2023 1:27 PM CDT ----- Message from Radha Rivera MD sent at 11/16/2023 1:11 PM CDT ----- Blood sugar, kidney, and liver tests are normal.Cholesterol is high at 240. Cut back on fried foods, cream sauce, and large amounts of red meat. Triglycerides are normal. Thyroid is normal. documented in this encounter Plan of Treatment Not on file documented as of this encounter Visit Diagnoses Not on filedocumented in this encounter Care Teams Environmental Designer Relationship Specialty Start Date End Date Radha Rivera MD [address] [place] [address] PCP - General Family Medicine 11/16/23 documented as of this encounter
--- OUTSIDE RECORDS SUMMARY | 2024-07-29 18:47 | XMS_ITS | Encounter Summary ---
Author Organization [facility] Address [address] [place] [address] Phone Care Team Providers Care Returned Goods Repairer Name Role Phone Radha Rivera MD Primary Care Provider +1- [phone] Encounter Details Date Type Department Care Team (Late st Contact Info) Description 12/22/2023 Refill [facility] - Primary Care - [place] [address] [place] [address] Radha Rivera MD [address] 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 * Telephone Encounter - Rita Flowers RN - 12/22/2023 1:52 PM CDT Received fax requesting refill(s). documented in this encounter Plan of Treatment Not on file documented as of this encounter Visit Diagnoses Diagnosis Chronic pain of left knee- Primary Pain in joint, lower leg documented in this encounter Care Teams Returned Goods Repairer Relationship Specialty Start Date End Date Radha Rivera MD [address] [place] [address] PCP - General Family Medicine 11/16/23 documented as of this encounter
--- OUTSIDE RECORDS SUMMARY | 2024-07-29 18:47 | XMS_ITS | Encounter Summary ---
Author Organization [facility] Address [address] [place] [place] [address] Phone Care Team Providers Care Nail Mill Worker Name Role Phone Radha Rivera MD Primary Care Provider [phone]- [phone] Reason for Referral * Radiology Services (Routine) - Authorized Specialty Diagnoses / Procedures Referred By Ramos thacker Referred To Contact Radiology Diagnoses Breast cancer screening by mammogram Procedures DIEUDONNE SCREENING BILATERAL DIGITAL W CAD Radha Rivera MD [address] [place] [address] Phone: tel: fax: Referral ID Status Reason Start Date Expiration Date V isits Requested Visits Authorized [id number] Authorized 11/16/2023 1 1 * Consult, Test & Initiate Treatment (Routine) - Closed Specialty Diagnoses / Procedures Referred By Ramos thacker Referred To Contact Diagnoses Alopecia Radha Rivera MD [address] [place] [address] Phone: tel: fax: [facility] [address] [place] [address] Phone: tel: fax: Referral ID Status Reason Start Date Expiration Date Visits Re quested Visits Authorized [id number] Closed 11/16/2023 1 1 Scheduling Instructions Seble is being referred to electrical engineering professor or other specialist in patient's insurance network for patient. Patient lives in [place]. See below for Seble's current medications, allergies [...] , Rfl: fluticasone (FLONASE) 50 MCG/ACT Suspension, [place] 1 spray every day by intranasal route., Disp: , Rfl: gabapentin (NEURONTIN) 100 MG Capsule, TAKE two CAPSULEs BY MOUTH 3 TIMES A DAY, Disp: , Rfl: meloxicam (MOBIC) 15 MG Tablet, , Disp: , Rfl: Victoza 18 MG/3ML Solution Pen-injector, INJECT 0.6 MG SUBCUTANEOUSLY FOR 4 DAYS THEN INJECT 1.2MG EVERY DAY, Disp: , Rfl: No current facility-administered medications for this visit. ALLERGIES: -- Lisinopril -- Other (see Comments) -- cough PROBLEM LIST: There is no problem list on file for this patient. * Consult, Test & Initiate Treatment (Routine) - Canceled Specialty Diagnoses / Procedures Referred By Ramos thacker Referred To Contact Diagnoses Chronic pain of left knee Radha Rivera MD [address] [place] [address] Phone: tel: fax: [facility] - Orthopedic Surgery [facility]3] [address] [place] [address] Phone: tel: fax: Referral ID Status Reason Start Date Expiration Date V isits Requested Visits Authorized [id number] Canceled 11/16/2023 1 1 Scheduling Instructions Seble is being referred for injections for left knee pain. Patient lives in [place]. Please contact patient for scheduling questions or concerns. Reason for Visit * Reason Comments New Patient Fasting today Knee Pain left Neck Pain Using Meloxicam//sta rted after having covid Encounter Details Date Type Department Care Team (Late st Contact Info) Description 11/16/2023 8:00 AM CDT Office Visit [facility] - Primary Care - [place] [address] [place] [id number] Radha Rivera MD [address] 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 Establish care / check up Any other concerns or questions that should be discussed at the visit? No Recent ED Visits and Hospitalizations None Health Maintenance Due Topic Date Due DEXA Bone Density Never done Hepatitis C Virus (HCV) Screening Never done Mammogram Never done Cervical Cancer Screening (CCS) Never done Colorectal Cancer Screening Never done Respiratory Syncytial Virus (RSV) Immunization (Adult - or age 60+ years) (1 - 1-dose 60+ series) Never done DTaP/Tdap/Td Immunization (2 - Td or Tdap) 07/30/2021 SARS-COV-2 Immunization ( season) 2023 Orders due are pended? no Pre-Visit Planning Status: Complete- with patient contact Communication Method Used to Complete PVP: Phone Pre-Visit Planning documented on 11/11/23 2:27 PM CDT by Kaitlin Mckeon Pre-visit complete * Desiree Maxwell RMA - 11/16/2023 8:00 AM CDT Seble Paulino is a 63 y.o. female with current BMI: Body mass index is 36.28 kg/m??. Interventions discussed including: encourage daily physical activity and well- balanced diet. * Radha Rivera MD - 11/16/2023 8:00 AM CDT Subjective: Subjective Patient is a 63-year-old female who comes in with chief complaint of chronic pain in her left knee.She has a history of hyperglycemia and obesity which was treated with Victoza; she is still somewhat overweight, but better than previously. She is noticed problems with alopecia which she attributesto her medications which she takes for blood pressure control. She also is due for a mammogram for breast cancer screening. The history is provided by the patient. Knee Pain The incident occurred more than 1 week ago. There was no injury mechanism. The pain is present in the left knee. The quality of the pain is described as cramping and shooting. The pain is at a severity of 7/10. The pain is moderate. The pain has been Fluctuating since onset. Associated symptoms include tingling. She reports no foreign bodies present. The symptoms are aggravated by weight bearing.She has tried NSAIDs and rest for the symptoms. The treatment provided moderate relief. Neck Pain The pain is associated with a remote injury. The pain is present in the occipital region. The quality of the pain is described as aching. The pain is at a severity of 4/10. The pain is moderate. Worse during: Variable and intermittent. Associated symptoms include tingling. She has tried heat and home exercises for the symptoms. The treatment provided significant relief. Hair/Scalp Problem This is a chronic problem. The problem occurs constantly. The problem has been gradually worsening.Associated symptoms include fatigue, joint swelling, myalgias and neck pain. Exacerbated by: hair styles which put tension on the hair follicles. Treatments tried: avoiding traction injuries. The treatment provided moderate relief. Review of Systems Constitutional: Positive for fatigue. Musculoskeletal: Positive for joint swelling, myalgias and neck pain. Neurological: Positive for tingling. Objective: Objective Physical Exam Vitals and nursing note reviewed. Constitutional: General: She is not in acute distress. Appearance: Normal appearance. She is well-developed. She is not diaphoretic. HENT: Head: Normocephalic and atraumatic. Right Ear: External ear normal. Left Ear: External ear normal. Nose: No congestion or rhinorrhea. Mouth/Throat: Mouth: Mucous membranes are moist. Pharynx: No posterior oropharyngeal erythema. Eyes: General: No scleral icterus. Right eye: No discharge. Left eye: No discharge. Conjunctiva/sclera: Conjunctivae normal. Pupils: Pupils are equal, round, and reactive to light. Neck: Trachea: No tracheal deviation. Cardiovascular: Rate and Rhythm: Normal rate and regular rhythm. Heart sounds: Normal heart sounds. No murmur heard. Pulmonary: Effort: Pulmonary effort is normal. No respiratory distress. Breath sounds: Normal breath sounds. No wheezing, rhonchi or rales. Chest: Chest wall: No tenderness. Abdominal: General: Bowel sounds are normal. There is no distension. Palpations: Abdomen is soft. Tenderness: There is no abdominal tenderness. There is no right CVA tenderness, left CVA tenderness, guarding or rebound. Musculoskeletal: General: Swelling and tenderness present. No deformity. Injury: We will refer to surgeon for possible steroid injections. Cervical back: Neck supple. Tenderness present. No rigidity. Right lower leg: No edema. Left lower leg: No edema. Comments: Discomfort in neck and left knee Lymphadenopathy: Cervical: No cervical adenopathy. Skin: General: Skin is warm and dry. Findings: No rash. Comments: Loss of scalp hair Neurological: General: No focal deficit present. Mental Status: She is alert and oriented to person, place, and time. Cranial Nerves: No cranial nerve deficit. Psychiatric: Mood and Affect: Mood normal. Behavior: Behavior normal. Thought Content: Thought content normal. Judgment: Judgment normal. Assessment and Plan Assessment & Plan See Diagnoses, Orders, Follow-up, and Instructions 1. Chronic pain of left knee We will refer patient to an orthopedic surgeon for possible steroid injections. We will check for signs of infection with a CBC - ORTHOPEDIC SURGERY REFERRAL; Future - COMPLETE BLOOD COUNT (CBC) WITH DIFF; Future 2. Hyperglycemia due to diabetes mellitus (HCC) Patient was previously on Victoza. We will check blood sugar fasting and also look for hyperlipidemia associated with prediabetes or diabetes - CMP (COMPREHENSIVE METABOLIC PANEL); Future - LIPID PANEL; Future 3. Alopecia discussed safe hair styles. Patient will be referred to a electrical engineering professor and also screened for hypothyroidism - EXTERNAL DERMATOLOGY REFERRAL; Future - THYROID SCREEN WITH REFLEX; Future 4. Breast cancer screening by mammogram Risks and benefits of mammograms were reviewed - DIEUDONNE SCREENING BILATERAL DIGITAL W CAD; Future Follow-up appointment in 1-2 months sooner for any new medical problems. documented in this encounter Plan of Treatment Scheduled Orders Name Type Priority Associated Diagnoses Orde r Schedule DIEUDONNE SCREENING BILATERAL DIGITAL W CAD Imaging Routine Breast cancer screening by mammogram Expected: 05/16/2024, Expires: 08/16/2024 Scheduled Referrals Name Type Priority Associated Diagnoses Order Schedule ORTHOPEDIC SURGERY REFERRAL Outpatient Referral Routine Chronic pain of left knee Expected: 11/16/2023, Expires: 11/15/2024 EXTERNAL DERMATOLOGY REFERRAL Outpatient Referral Routine Alopecia Expected: 11/16/2023, Expires: 11/15/2024 documented as of this encounter Results * (ABNORMAL) LIPID PANEL (11/16/2023 9:24 AM CDT) CHOLESTEROL 240(H) <200 mg/dL 11/16/2023 1:05 PM CDT [facility] TRIGLYCERIDES 115 <150 mg/dL 11/16/2023 1:05 PM CDT [facility] HDL CHOLESTEROL 52 >40 mg/dL 1:05 PM CDT [facility] LDL 165(H) <130 mg/dL 11/16/2023 1:05 PM CDT [facility] VLDL 23 10 - 50 mg/dL 11/16/2023 1:05 PM CDT [facility] CHOL/HDL RATIO 4.6(H) 0.0 - 4.4 11/16/2023 1:05 PM CDT [facility] NON-HDL CHOLESTEROL 188(H) <130 mg/dL 11/16/2023 1:05 PM CDT [facility] IS THE PATIENT REQUIRED TO BE FASTING? Yes 11/16/2023 1:05 PM CDT [facility] HAS THE PATIENT BEEN FASTING? Yes 11/16/2023 1:05 PM CDT [facility] Blood Venipuncture / Unknown 11/16/2023 9:24 AM CDT 11/16/2023 9:24 AM CDT us Radha Rivera MD CHEMISTRY ORDERABLES Final Result [facility] [address] [place] [address] * (ABNORMAL) CMP (COMPREHENSIVE METABOLIC PANEL) (11/16/2023 9:24 AM CDT) Pathologist [facility] SODIUM 141 136 - 145 mmol/L 11/16/2023 1:05 PM [facility] POTASSIUM 3.9 3.5 - 5.1 mmol/L 11/16/2023 1:05 PM [facility] CHLORIDE 105 98 - 107 mmol/L 11/16/2023 1:05 PM [facility] CO2, VENOUS 27 22 - 30 mmol/L 11/16/2023 1:05 PM [facility] ANION GAP 12.9 <18.0 mmol/L 11/16/2023 1:05 PM [facility] GLUCOSE 83 70 - 99 mg/dL 11/16/2023 1:05 PM [facility] BUN 13 10 - 20 mg/dL 11/16/2023 1:05 PM [facility] CREATININE, BLOOD 0.95 0.60 - 1.00 mg/dL 11/16/2023 1:05 PM [facility] BUN/CREATININE RATIO 14 12 - 20 ratio 11/16/2023 1:05 PM [facility] TOTAL PROTEIN 7.6 6.3 - 8.2 g/dL 11/16/2023 1:05 PM [facility] ALBUMIN 4.0 3.5 - 5.0 g/dL 11/16/2023 1:05 PM [facility] A/G RATIO 1.1 1.0 - 2.2 11/16/2023 1:05 PM [facility] CALCIUM 9.8 8.7 - 10.5 mg/dL 11/16/2023 1:05 PM [facility] T BILI 0.2 0.2 - 1.2 mg/dL 11/16/2023 1:05 PM [facility] SGOT (AST) 19 5 - 34 U/L 11/16/2023 1:05 PM [facility] SGPT (ALT) 28 0 - 55 U/L 11/16/2023 1:05 PM [facility] ALKALINE PHOSPHATASE 95 40 - 150 U/L 11/16/2023 1:05 PM CDT [facility] IS THE PATIENT REQUIRED TO BE FASTING? Yes 11/16/2023 1:05 PM CDT [facility] HAS THE PATIENT BEEN FASTING? Yes 11/16/2023 1:05 PM CDT [facility] GFR, ESTIMATED >60 >=60 11/16/2023 1:05 PM CDT [facility] Comment: Creatinine Clearance is the preferred criteria for selecting drug dose adjustments in renally impaired patients. ??The GFR is provided as additional pertinent clinical information. GFR is reported in mL/min/1.73 sq m. Calculation based on the Chronic Kidney Disease Epidemiology Collaboration (CKD- EPI) equation refit without adjustment for race. GFR, EST. >60 >=60 024 1:05 PM CDT [facility] GFR, EST. NONAFRICAN 59(L) >=60 11/16/2023 1:05 PM CDT [facility] Blood Venipuncture / Unknown 11/16/2023 9:24 AM CDT 11/16/2023 9:24 AM CDT Radha Rivera MD CHEMISTRY ORDERABLES Final Result [facility] [address] [place] [address] documented in this encounter Visit Diagnoses Diagnosis Chronic pain of left knee- Primary Pain in joint, lower leg Hyperglycemia due to diabetes mellitus (HCC) Alopecia Alopecia, unspecified Breast cancer screening by mammogram documented in this encounter Care Teams Nail Mill Worker Relationship Specialty Start Date End Date Radha Rivera MD [address] [place] [address] PCP - General Family Medicine 11/16/23 documented as of this encounter
--- OUTSIDE RECORDS SUMMARY | 2024-07-29 18:47 | XMS_ITS | Encounter Summary ---
Author Organization [facility] Address [address] [place] [address] Phone Care Team Providers Care Fitter Tacker Name Role Phone Radha Rivera MD Primary Care Provider [phone]- [phone] Reason for Visit * Reason Comments Medication Refill Encounter Details Date Type Department Care Team (Late st Contact Info) Description 04/09/2024 Refill [facility] - Primary Care - [place] [address] [place] [address] Radha Rivera MD [address] 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 Requested Prescriptions Pending Prescriptions Disp Refills meloxicam (MOBIC) 15 MG Tablet [Pharmacy Med Name: Meloxicam 15 MG Oral Tablet] 90 Tablet 0 Sig: TAKE 1 TABLET BY MOUTH DAILY NSAIDs Protocol Passed - 04/09/2024 9:21 PM Passed - Normal serum creatinine in past 12 months CREATININE, BLOOD Date Value Ref Range Status 11/16/2023 0.95 0.60 - 1.00 mg/dL Final Passed - Visit with relevant provider in past 12 months or upcoming 90 days Recent Visits Date Type Provider Dept 11/16/23 Office Visit Radha Rivera MD [facility] Showing recent visits within past 365 days and meeting all other requirements Future Appointments No visits were found meeting these conditions. Showing future appointments within next 90 days and meeting all other requirements Passed - No matching NSAID med order in past 45 days No matching medication orders between 02/26/2024 8:55 AM and 04/11/2024 8:55 AM Passed - AST less than 55 [...] 11/16/2023 41.7 36.0 - 47.0 % Final documented in this encounter Plan of Treatment Not on file documented as of this encounter Visit Diagnoses Diagnosis Chronic pain of left knee Pain in joint, lower leg documented in this encounter Care Teams Fitter Tacker Relationship Specialty Start Date End Date Radha Rivera MD [address] [place] [address] PCP - General Family Medicine 11/16/23 documented as of this encounter
--- OUTSIDE RECORDS SUMMARY | 2024-07-29 18:47 | XMS_ITS | Encounter Summary ---
Author Organization [facility] Address [address] [place] [place] [address] Phone Care Team Providers Care Molding Line Operator Name Role Phone Unavailable Primary Care Provider Unavailabl e Encounter Details Date Type Department Care Team (Late st Contact Info) Description 11/11/2023 Telephone [facility] [place] [address] [place] [address] Radha Rivera MD [address] 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
--- OUTSIDE RECORDS SUMMARY | 2024-07-29 18:48 | XMS_ITS | Data Portability ---
Author Organization [place] - [employer] [facility], [employer] Address [address] [place] [address] Assessment Encounter Date Assessment Date Assessment LastModified by Organization Details LastModified Time 03/22/2017 03/22/2017 Patient presented for follow up. Studies ordered as below. Discussed plan with patient/careg iver, who expressed understanding . Follow up as noted below. [email or web address] Not available 03/22/2017 18:04:26 05/07/2017 05/07/2017 Patient presented for follow up. Studies ordered as below. Discussed plan with patient/careg iver, who expressed understanding . Follow up as noted below. [email or web address] Not available 05/07/2017 09:58:21 06/22/2017 06/22/2017 Patient presented for follow up. Studies ordered as below. Discussed plan with patient/careg iver, who expressed understanding . Follow up as noted below. [email or web address] Not available 06/22/2017 16:00:07 09/23/2017 09/23/2017 Patient presented for follow up. Studies ordered as below. Discussed plan with patient/careg iver, who expressed understanding . Follow up as noted below. [email or web address] Not available 09/23/2017 08:59:55 12/21/2017 12/21/2017 Patient presented for follow up. Studies ordered as below. Discussed plan with patient/careg iver, who expressed understanding . Follow up as noted below. [email or web address] Not available 12/21/2017 09:08:39 Plan of Treatment Reminders Order Date Submit Date Provider Last Modified By Organization Details Last Modified Time Details Appointments None recorded. Lab urinalysis , dipstick 2016 017 GENE [employer] [facility] [facility], [address], [place], [address], 7 18:45:05 BMP, serum or plasma 2016 017 [facility] (Closed Down [facility] Bankruptcy), [address], [place], [address], 7 10:40:05 lipid panel w/ direct LDL, serum 2016 017 [facility] (Closed Down Via Bankruptcy), [address], [place], [address], 7 10:40:06 AST/SGOT (aspartate aminotrans ferase), serum or plasma 2016 017 [facility] (Closed Down Via Bankruptcy), [address], [place], [address], 7 10:40:06 ALT (alanine aminotrans ferase), serum or plasma 2016 017 [facility] (Closed Down Via Bankruptcy), [address] [facility], [place], [address], 7 10:40:05 hepatitis C Ab, serum 2016 017 [email or web address] Not available 7 08:48:29 lipid panel w/ direct LDL, serum 2016 017 [email or web address] Not available 7 16:35:38 ALT (alanine aminotrans ferase), serum or plasma 2016 017 [email or web address] Not available 7 16:35:38 AST/SGOT (aspartate aminotrans ferase), serum or plasma 2016 017 [email or web address] Not available 7 08:48:29 TSH, serum or plasma 2017 018 [email or web address] [facility] (Lab), [address] [place], [address], 8 09:51:04 lipid panel w/ direct LDL, serum 2017 018 [email or web address] Not available 8 10:02:30 CK (creatine kinase), total, serum [address] (Lab), [address], [place], [address], 8 09:51:04 CMP, serum or plasma [address] (Lab), [address] [place], [address], 8 09:51:04 microalbum in/creatin ine, mass ratio, urine [address] (Lab), [address] [place], [address], 8 09:51:04 TSH, serum or plasma 2017 018 [facility] (Lab), [address] [place], [address], 8 14:57:44 D-dimer, quant, plasma 2017 018 [facility] (Lab), [address] [place], [address], 8 14:41:15 lipid panel, serum 2017 018 [facility] (Lab), [address], [place], [address], 8 15:01:13 CBC w/ auto diff 2017 018 GENE [facility] (Lab), [address], [place], [address], 8 16:38:49 CMP, serum or plasma 2017 018 [email or web address] [facility] (Lab), [address], [place], [address], 8 17:58:00 Referral physical therapist referral 2016 017 [facility], [address], [address], [place], [address], 7 08:51:08 optometris t referral [address], [address] [facility], [facility] [address], [address], 7 08:51:[address] referral 2016 017 [email or web address] Tawanda Rodgers MD, [address] [place], [address], 7 08:51:07 gastroente rologist referral 2016 017 [email or web address] Not available 7 19:01:17 optometris t referral [address], [address] [facility], [address], [place], [address], 7 08:48:04 general surgeon referral 2017 018 [email or web address] Not available 8 09:01:11 optometris t referral 2017 018 [facility], [address] [facility], [address], [place], [address], 8 09:01:10 colonoscop y referral 2017 018 [email or web address] [address] Ingrid Dyer MD, [address], [address], [place], [address], 8 08:31:45 optometris t referral [address], [address] [facility], [address], [place], [address], 8 08:37:27 Procedures None recorded. Surgeries None recorded. Imaging XR, knee, 3 view 2016 017 [facility]- Radiology, [address], [place], [address], 7 10:38:07 bone density [address]- Radiology, [address], [place], [address], 7 08:34:27 XR, lumbar spine 2016 017 [facility], [address], [place], [address], 7 08:49:11 US, thyroid [address]- Radiology, [address], [place], [address], 7 08:50:08 XR, lumbar spine [address]- Radiology, [address], [place], [address], 7 08:50:07 US, thyroid 2017 018 [email or web address] [facility]- Radiology, [address], [place], [address], 8 08:37:36 XR, chest, 2 view 2017 [facility] [address], [place], [address], 8 10:23:00 electrocar diogram 2017 018 [facility], [facility], [address], [place], [address], 8 12:35:08 Medication Orders neomycin-p olymyxin-h ydrocort 3.5 mg-10,000 unit/mL-1 % ear drops,susp [address] [facility]/Pharmacy #2510, [address] [place], [address], 7 22:38:52 baclofen 10 mg tablet [address]/Pharmacy #2510, [address] [place], [address], 7 10:14:50 Celebrex 200 mg capsule [address]/Pharmacy #2510, [address] [place], [address], 7 10:22:22 losartan 50 mg-hydroch lorothiazi de 12.5 mg tablet 2016 017 [facility], [address] [place] [address] [place], [address], 7 18:37:03 Aspir-81 mg tablet,del ayed release 2016 017 [facility]/Pharmacy #2510, [address] [place] [address], [address], 7 18:37:04 cyclobenza waqar 10 mg tablet 2016 017 [facility]/Pharmacy #2510, [address] [place] [address], [address], 7 19:49:13 Medrol (Mikhail) 4 mg tablets in a dose pack 2016 017 [facility]/Pharmacy #2510, [address] [place] [address], [address], 7 19:49:20 Neurontin 100 mg capsule 2016 017 [facility]/Pharmacy #2510, [address] [place] [address], [address], 7 20:31:31 atorvastat in 10 mg tablet 2016 017 [facility]/Pharmacy #2510, [address] [place] [address], [address], 7 20:31:36 atorvastat in 10 mg tablet 2017 018 [facility]/Pharmacy #2510, [address] [place] [address], [address], 8 09:23:32 Flonase Allergy Relief 50 mcg/actuat ion nasal spray,susp ension 2017 018 [facility]/Pharmacy #2510, [address] [place] [address], [address], 8 09:23:29 Zyrtec 10 mg tablet 2017 018 [facility]/Pharmacy #2510, [address] [place] [address], [address], 8 09:23:32 Mucinex DM 60 mg-1,200 mg tablet,ext ended release 12 hr 2017 [facility] [address] [place] [address], [address], 8 09:21:31 gabapentin 100 mg capsule 2017 018 [facility], [address] [place] [address], [address], 8 09:23:29 losartan 50 mg-hydroch lorothiazi de 12.5 mg tablet 2017 [facility], [address] [place] [address], [address], 8 09:23:30 Levaquin 500 mg tablet 2017 018 [facility] [address] [place] [address], [address], 8 14:36:13 meloxicam 7.5 mg tablet 2017 018 [facility], [address] [place] [address], [address], 8 09:34:29 Belviq XR 20 mg tablet,ext ended release 2017 018 [facility], [address] [place] [address], [address], 8 09:34:30 losartan 50 mg-hydroch lorothiazi de 12.5 mg tablet 2017 018 [facility]/Pharmacy #2510, [address] [place] [address], [address], 8 09:34:27 Patient TargetsNo targets recorded. Patient Instructions Encounter Date Encounter Id Patient Instructions Last Modified By Organization Details Last Modified Time 03/22/2017 [id number] thyroid nodules: care instructions GENE Not available 03/23/2017 09:56:04 knee arthritis: care instructions GENE Not available 03/23/2017 09:55:55 high cholesterol : care instructions GENE Not available 03/23/2017 09:56:05 heart-healthy diet: care instructions GENE Not available 03/23/2017 09:56:05 chest pain: care instructions GENE Not available 03/23/2017 09:56:05 snoring: care instructions GENE Not available 03/23/2017 09:55:56 home sleep testing* [email or web address] Not available 04/19/2017 08:51:13 06/22/2017 [id number] infection from tattoos: care instructions GENE Not available 06/23/2017 13:28:20 thyroid nodules: care instructions GENE Not available 06/23/2017 13:28:38 high blood pressure: care instructions GENE Not available 06/23/2017 13:28:21 learning about high blood pressure GENE Not available 06/23/2017 13:28:21 09/23/2017 [id number] thyroid nodules: care instructions [email or web address] Not available 09/23/2017 09:23:26 home sleep testing* [email or web address] Not available 10/21/2017 09:01:21 high blood pressure: care instructions [email or web address] Not available 09/23/2017 09:23:26 learning about high blood pressure [email or web address] Not available 09/23/2017 09:23:26 12/21/2017 [id number] mammogram: about this test [email or web address] Not available 12/21/2017 09:34:24 thyroid nodules: care instructions [email or web address] Not available 12/21/2017 09:34:24 cough: care instructions [email or web address] Not available 12/21/2017 09:34:24 pulmonary function test* mshenouda Not available 12/21/2017 09:34:24 back care and preventing injuries: care instructions [email or web address] Not available 12/21/2017 09:34:24 getting back to normal after low back pain: care instructions [email or web address] Not available 12/21/2017 09:34:24 learning about relief for back pain mshenouda Not available 12/21/2017 09:34:24 When You Want to Lose Weight: Care Instructions [email or web address] Not available 12/21/2017 09:34:24 snoring: care instructions [email or web address] Not available 12/21/2017 09:34:24 home sleep testing* soo Not available 01/18/2018 08:37:51 Reason for Referral Referring Physician: Volodymyr [facility], Encounter Date: 03/22/2017 Dramatic Coach Referral for Ch est pain Referring Physician: Volodymyr Gonzalez [facility], Encounter Date: 03/22/2017 Car Supplier Referral for Bartolo ign essential hypertension Referring Physician: Volodymyr Gonzalez [facility], Encounter Date: 03/22/2017 Referring Physician: Volodymyr Gonzalez [facility], Encounter Date: 03/22/2017 Car Supplier Referral for Scr eening procedure Referring Physician: Volodymyr Gonzalez [facility], Encounter Date: 06/22/2017 Car Supplier Referral for Scr eening procedure Referring Physician: Pretty Mccabe [facility], Encounter Date: 09/23/2017 General Surgeon Referral for Thyroid nodule Referring Physician: Pretty Mccabe [facility], Encounter Date: 09/23/2017 Colonoscopy Referral for Scr eening for malignant neoplasm of colon Referring Physician: Volodymyr Gonzalez [facility], Encounter Date: 12/21/2017 Car Supplier Referral for Bartolo ign essential hypertension Referring Physician: Volodymyr [facility], Encounter Date: 12/21/2017 Results Created Date Observation Date Name Description Value Unit Range Abnormal Flag Note LastModifiedBy Organization Detail LastModifiedTime 03/22/2017 urina lysis , dipst ick Leukocytes Negati ve Not Available [facility], [facility] [address], [place], [address], 03/22/2017 18:36:46 03/22/2017 urina lysis , dipst ick Nitrite negati ve Not Available [employer], [facility] [address], [place], [address], 03/22/2017 18:36:46 03/22/2017 urina lysis , dipst ick Urobilinogen .2 Not Available [facility], [facility] [address], [place], [address], 03/22/2017 18:36:46 03/22/2017 urina lysis , dipst ick Protein Negati ve Not Available [facility], [facility] [address] [facility] [address], [place], [address], 03/22/2017 18:36:46 03/22/2017 urina lysis , dipst ick pH 5.0 Not Available [facility] [address], [place], [address], 03/22/2017 18:36:46 03/22/2017 urina lysis , dipst ick Blood Negati ve Not Available [facility], [facility] [address] [facility] [address], [place], [address], 03/22/2017 18:36:46 03/22/2017 urina lysis , dipst ick Specific [place] 1.005 Not Available [facility] [address] [facility], [place], [address], 03/22/2017 18:36:46 03/22/2017 urina lysis , dipst ick Ketone Negati ve Not Available [facility], [facility] [address], [place], [address], 03/22/2017 18:36:46 03/22/2017 urina lysis , dipst ick Bilirubin Negati ve Not Available [facility] [address] [facility], [place], [address], 03/22/2017 18:36:46 03/22/2017 urina lysis , dipst ick Glucose Negati ve Not Available [facility] [address], [place], [address], 03/22/2017 18:36:46 03/22/2017 urina lysis , dipst ick Appearance Clear Not Available [facility], [facility] [address], [place], [address], 03/22/2017 18:36:46 03/22/2017 urina lysis , dipst ick Color Yellow Not Available [facility], [facility] [address], [place], [address], 03/22/2017 18:36:46 12/23/19 18 12/22/2017 pulmo nary funct ion test* pre fev1 Not Available [facility], [facility] [address] [facility], [place], [address], 12/21/2017 09:26:36 12/23/19 18 12/22/2017 pulmo nary funct ion test* post fev1 Not Available [facility], [facility] [address], [place], [address], 12/21/2017 09:26:36 12/23/19 18 12/22/2017 pulmo nary funct ion test* fev1 Not Available [facility], [facility] [address], [place], [address], 12/21/2017 09:26:36 12/23/19 18 12/22/2017 pulmo nary funct ion test* pre fef Not Available [facility], [facility] [address], [place], [address], 12/21/2017 09:26:36 12/23/19 18 12/22/2017 pulmo nary funct ion test* post fef Not Available [facility], [facility] [address], [place], [address], 12/21/2017 09:26:36 12/23/19 18 12/22/2017 pulmo nary funct ion test* fef Not Available [facility], [facility] [address], [place], [address], 12/21/2017 09:26:36 03/25/20 17 03/25/2017 XR, knee, 3 view No observ ation record ed. GENE [facility] [place], [address], 03/27/2017 16:38:38 06/23/20 17 12/28/2016 US, thyro id No observ ation record ed. [address], [place], [address], 06/23/2017 22:49:20 06/23/20 17 03/25/2017 XR, knee, 3 view No observ ation record ed. GENE Not Available 2016 22:32:32 06/23/20 17 MAMMO , scree mindi, digit al, bilat eral No observ ation record ed. [address] [place], [address], 06/23/2017 22:50:38 06/23/20 17 11/20/2016 bone densi ty No observ ation record ed. [email or web address] [facility], [place], [address], 06/30/2017 23:13:16 12/23/19 18 12/22/2017 XR, chest , 2 view No observ ation record ed. GENE Not Available 2017 15:45:59 12/23/19 18 12/21/2017 pulmo nary funct ion test* No observ ation record ed. ad [place] [facility], [facility] [address], [place], [address], 12/22/2017 12:34:32 12/23/19 18 12/21/2017 elect clair mejias am No observ ation record ed. [email or web address] [facility], [facility] [address], [place], [address], 12/22/2017 12:35:15 Result Notes None recorded. Problems Name Problem SNOMED Code Status Onset Date Resolution Date Notes Provider Name and Address Organization Details Recorded Time Thyroid nodule 483643996 Active 2016 Rolando Padilla MD [address], [place], [address], [facility] 7 15:35:06 Hyperlipidemia 55355998 Active 2016 Volodymyr Gonzalez MD [address], [place], [address], [facility] 7 18:19:43 Benign essential hypertension 9121548 Active 2016 Volodymyr Gonzalez MD [address], [place], [address], [facility] 7 18:20:38 Body mass index 40+ - severely obese 141494752 Active 2016 Volodymyr Gonzalez MD [address], [place], [address], [facility] 7 18:20:44 Obesity 605012889 Active 2017 Volodymyr Gonzalez MD [address], [place], [address], [facility] 8 09:29:19 Problem Notes None recorded. Procedures Surgical History Date Name Laterality Status Provider Name and Address Organization Details Recorded Time 11/08/19 17 Date of Last Mammogram completed [facility] 12/21/2016 19:18:06 08/09/19 16 Date of Last Pap Smear completed [facility] 11/19/2016 14:16:46 08/09/19 04 Tonsillectomy completed Dayanamyra Arevalo [facility] 11/19/2016 14:13:21 Breast Biopsy completed Rolando Padilla MD [address], [place], [address], [place] [facility] 11/19/2016 15:58:18 Tubal Ligation completed Rolando Padilla MD [address], [place], [address], [place] [facility] 11/19/2016 15:58:29 Imaging Results Imaging Date Name Status LastModified by Organization Details LastModified Time 03/25/2017 XR, knee, 3 view completed [facility] [place], [address], 03/27/2017 16:38:38 12/28/2016 US, thyroid completed [address] [place], [address], 06/23/2017 22:49:20 03/25/2017 XR, knee, 3 view completed GENE Informat ion not available 06/24/2017 22:32:32 06/23/2017 MAMMO, screening, digital, bilateral completed [address] [place], [address], 06/23/2017 22:50:38 11/20/2016 bone density completed [facility]? [place], [address], 06/30/2017 23:13:16 12/22/2017 XR, chest, 2 view completed GENE Informa tion not available 12/22/2017 15:45:59 12/21/2017 pulmonary function test* completed ad [facility], [facility] [address], [place], [address], 12/22/2017 12:34:32 12/21/2017 electrocardiogram completed ad [facility], [facility] [address], [place], [address], 12/22/2017 12:35:15 Procedure Notes None recorded. Medical Equipment None Reported. Allergies Allergen ID Allergen Name Allergen Category Reaction Reaction Severity Criticality Documentation Date Start Date Code Code System Note Provider Name and Address Organization Details Recorded Time 5905 lisinopri l medicatio n cough Not available Not available 03/22/2017 25961 RxNorm Volodymyr Gonzalez MD [address], [place], [address], [facility] 7 18:21:01 Medications Name Sig Start Date Stop Date Status Note LastModified by Organization Details LastModified Time celecoxib 200 mg capsule 05/07 completed Not Available Not Available Not Available cyclobenzap rine 10 mg tablet Take 1 tablet twice a day by oral route as needed. 05/08 completed Not Available Not Available Not Available furosemide 40 mg tablet active Not Available Not Available Not Available cetirizine 10 mg tablet TAKE 1 TABLET BY MOUTH AT BEDTIME active Not Available Not Available No t Available atorvastati n 10 mg tablet TAKE 1 TABLET BY MOUTH AT BEDTIME active Not Available Not Available No t Available azithromyci n 250 mg tablet TAKE 2 TABLETS (500 MG) BY ORAL ROUTE ONCE DAILY FOR 1 DAY THEN 1 TABLET (250 MG) BY ORAL ROUTE ONCE DAILY FOR 4 DAYS 12/21 completed Not Available Not Available Not Available Medrol (Mikhail) 4 mg tablets in a dose pack Take 1 dose pk by oral route. 05/08 completed Not Available Not Available Not Available amlodipine 5 mg tablet Take 1 tablet every day by oral route. active Not Available Not Available No t Available sulfamethox azole 800 mg-trimetho prim 160 mg tablet 11/19 completed Not Available Not Available Not Available aspirin 81 mg tablet,elen yed release Take 1 tablet every day by oral route. active Not Available Not Available No t Available meloxicam 7.5 mg tablet TAKE 1 TABLET BY MOUTH EVERY DAY NEEDED active Not Available Not Available No t Available baclofen 10 mg tablet Take 1 tablet twice a day by oral route. 05/07 completed Not Available Not Available Not Available cephalexin 500 mg capsule 11/19 completed Not Available Not Available Not Available Levaquin 500 mg tablet Take 1 tablet every 24 hours by oral route. 01/16 completed Not Available Not Available Not Available gabapentin 100 mg capsule TAKE two CAPSULEs BY MOUTH 3 TIMES A DAY active Not Available Not Available No t Available losartan 50 mg-hydrochl orothiazide 12.5 mg tablet TAKE 1 TABLET BY MOUTH EVERY DAY IN THE MORNING active Not Available Not Available No t Available losartan 100 mg tablet 03/25 completed Not Available Not Available Not Available fluticasone propionate 50 mcg/actuati on nasal spray,suspe nsion [place] 1 spray every day by intranasa l route. active Not Available Not Available No t Available neomycin-po lymyxin-hyd rocort 3.5 mg-10,000 unit/mL-1 % ear drops,susp INSTILL 4 DROPS INTO AFFECTED EAR(S) BY OTIC ROUTE 3 TIMES PER DAY 04/18 completed Not Available Not Available Not Available Mucinex DM 30 mg-600 mg tablet,exte nded release 12 hr Take 1 tablet every 12 hours by oral route. 12/21 completed Not Available Not Available Not Available ProAir HFA 90 mcg/actuati on aerosol inhaler 2 puffs up to 4 times a days as needed only; Must go to the Emergency Room if no relief after the 4th treatment . 2016 active Not Available Not Available Not Avai lable Mucinex DM 60 mg-1,200 mg tablet,exte nded release 12 hr Take 1 tablet twice a day by oral route. 12/21 completed Not Available Not Available Not Available Belviq XR 20 mg tablet,exte nded release TAKE 1 TABLET BY MOUTH EVERY DAY 2017 active Not Available Not Available Not Avai lable Fluzone Quad 2017-(PF) 60 mcg(15 mcgx4)/0.5 mL intramuscul ar syringe active Not Available Not Available N ot Available Vitals Date Recorded Body height Heart rate Respiratory rate Body temperature Body mass index (BMI) Body weight Provider Name and Address Organization Details Last Updated DateTime 7 167.64 cm 89 /min 18 /min 97.5 [degF] 42.8 kg/m2 516058. 98 g Alessandra Sarkar [facility] 7 18:04:53 Date Recorded Systolic blood pressure Diastolic blood pressure Provider Name and Address Organization Details Last Updated DateTime 03/22/2017 156 mm[Hg] 94 mm[Hg] Volodymyr Gonzalez MD [address] [facility] [address], [place], [address], [facility] 03/22/2017 18:32:09 Date Recorded Body height Heart rate Respiratory rate Body temperature Body mass index (BMI) Body weight Systolic blood pressure Diastolic blood pressure Provider Name and Address Organization Details Last Updated DateTime 7 167.64 cm 78 /min 18 /min 97.8 [degF] 42.3 kg/m2 307617. 2 g 166 mm[Hg] 88 mm[Hg] DAVID BANDA [facility] 7 09:58:57 Date Recorded Body height Body mass index (BMI) Body weight Respiratory rate Body temperature Heart rate Systolic blood pressure Diastolic blood pressure Provider Name and Address Organization Details Last Updated DateTime 7 167.64 cm 43.3 kg/m2 628875. 76 g 18 /min 97.7 [degF] 91 /min 147 mm[Hg] 90 mm[Hg] Lyubov Smalls [facility] 7 16:01:51 Date Recorded Body height Heart rate Respiratory rate Body temperature Body mass index (BMI) Body weight Systolic blood pressure Diastolic blood pressure Systolic blood pressure Diastolic blood pressure Provider Name and Address Organization Details Last Updated DateTime 8 167.64 cm 88 /min 18 /min 97.3 [degF] 44.2 kg/m2 381672. 31 g 156 mm[Hg] 90 mm[Hg] 146 mm[Hg] 84 mm[Hg] Natali Meg [facility] 8 09:41:34 Date Recorded Body height Respiratory rate Body mass index (BMI) Body weight Body temperature Heart rate Provider Name and Address Organization Details Last Updated DateTime 8 167.64 cm 18 /min 44.4 kg/m2 655655. 9 g 98.6 [degF] 74 /min Lyubov Smalls [facility] 8 09:11:36 Date Recorded Systolic blood pressure Diastolic blood pressure Provider Name and Address Organization Details Last Updated DateTime 12/21/2017 156 mm[Hg] 74 mm[Hg] Volodymyr Gonzalez MD [address], [place], [address], [facility] 12/21/2017 09:25:11 Social History Question Answer Notes LastModified by [facility] Details LastModified Time Tobacco Smoking Status Never Smoker Rolando Padilla MD [address], [place], [address], [facility] 11/19/2016 15:55:44 Do You Have An Advance Directive? No Information not available 11/19/2016 What Is Your Level Of Alcohol Consumption? None Information not available 11/19/2016 What Is Your Level Of Caffeine Consumption? Moderate Information not available 11/19/2016 How Much Tobacco Do You Chew? None Information not available 11/19/2016 What Is Your Code Status? Full Code Information not available 11/19/2016 What Type Of Diet Are You Following? REGULAR Information not available 11/19/2016 Which Illicit Or Recreational Drugs Have You Used? 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 12/21/2017 Information not available 03/01/2019 How Much Tobacco Do You Smoke? No Information not available 11/19/2016 How Many Years Have You Smoked Tobacco? 0 Information not available 11/19/2016 Sex: Unknown Functional Status Question Answer Note LastModified by Organizat ion Details LastModified Time What is your exercise level? None but just joined the Gym a week ago Information not available 11/19/2016 Mental Status None recorded. Family History Relationship Description Onset Age of this Age Resolved Age Notes LastModified by Organization Details LastModified Time Maternal Grandfather Family history of stroke 86 -- Dx'd at 86 Not available 11/19/2016 15:55:17 Paternal Grandmother Malignant tumor of breast 53 56 -- dx'd around 51 y/o Not available 11/19/2016 15:53:08 Notes:-- no DM or CAD in the family Medical History No medical history recorded. Gynecological History Statement/Question Response Date of Last Pap Smear 08/09/2015 Date of Last Mammogram 11/07/2016 Date of Last Colonoscopy Obstetrics History GPAL:G 2 P 2 0 0 0 Type Value Full Term 2 Total 2 Immunizations Vaccine Type Date Status Note Provider Nam e and Address Organization Details Recorded Time Influenza, split virus, trivalent, preservative 6 completed Dayana Arevalo [facility] 11/19/2016 14:17:36 Influenza, split virus, quadrivalent, preservative 7 completed Volodymyr Gonzalez MD [address], [place], [address], [facility] 06/22/2017 16:31:17 Past Encounters Encounter ID Performer Location Encounter Start Date Encounter Closed Date Diagnosis/Indication Diagnosis SNOMED-CT Code Diagnosis ICD10 Code [id number] Rolando Padilla MD [facility] [address] [place] [address] 11/19/2016 13:49:37 11/19/2016 16:48:31 Body mass index 40+ - severely obese 703958126 Z68.41 Benign ess ential hypertension 5596656 I10 Bronchospasm 1717277 J98 .01 Screening for cancer 158 55549 Z12.9 Viral screening 45751273 4 Z11.59 Hyperlipid emia screening 624970445 Z13.220 Screening for osteoporosis 693250378 Z13.820 Dyspnea on exertion 6084 5006 R06.09 [id number] Rolando Padilla MD [facility] [address] [place] [address] 12/21/2016 17:29:31 12/21/2016 20:12:25 Screening for malignant neoplasm of colon 898527299 Z12.11 Screening for malignant neoplasm of breast 124413047 Z12.31 Screening for malignant neoplasm of cervix 451762838 Z12.4 Dyspnea on exertion 6084 5006 R06.09 Benign ess ential hypertension 2379868 I10 Body mass index 40+ - severely obese 318241620 Z68.41 Bronchospasm 9001332 J98 .01 Viral screening 60469658 4 Z11.59 Screening for osteoporosis 781706441 Z13.820 Antiplatel et agent therapy 771476522 Z79.02 Hyperlipidemia 63832523 E78.5 Depression screening 171 879220 Z13.89 Active or passive immunization 765371105 Z23 Adult heal th examination 764771253 Z00.00 Impacted c erumen in right ear 0880105541 104792 H61.21 Chest pain 51791701 R07. 2 Postmenopausal state 764 77890 Z78.0 [id number] Volodymyr Gonzalez MD [employer] [employer] [address] [place] [address] 03/22/2017 17:43:53 03/22/2017 18:40:24 Chest pain 25527651 R07.2 Benign ess ential hypertension 3795495 I10 Hyperlipidemia 58790651 E78.5 Body mass index 40+ - severely obese 523388928 Z68.41 Viral screening 02876651 4 Z11.59 Screening for osteoporosis 509309032 Z13.820 Screening for malignant neoplasm of colon 185090265 Z12.11 Screening for malignant neoplasm of breast 915245283 Z12.31 Screening for malignant neoplasm of cervix 964710562 Z12.4 Antiplatel et agent therapy 920676272 Z79.02 Depression screening 171 593628 Z13.89 Active or passive immunization 586279662 Z23 Impacted c erumen in right ear 7087742627 220317 H61.21 Postmenopausal state 764 40850 Z78.0 Thyroid nodule 477505406 E04.1 Snoring 01510648 R06.83 Otitis externa 3630348 H 60.91 Osteoarthr itis of knee 470449459 M17.0 Lumbago with sciatica 20 4666601 M54.42 [id number] [facility]Y MCCABE [facility] [address] [place] [address] 05/07/2017 09:30:15 05/07/2017 10:28:58 Lumbago with sciatica 814213012 M54.42 Benign ess ential hypertension 6531489 I10 Hyperlipidemia 44442820 E78.5 Screening for malignant neoplasm of colon 167787391 Z12.11 [id number] Volodymyr Gonzalez MD [employer] [address] [place] [address] 06/22/2017 15:56:31 06/22/2017 16:36:05 Lumbago with sciatica 307546543 M54.42 Hyperlipidemia 62230159 E78.5 Thyroid nodule 308002733 E04.1 Benign ess ential hypertension 2427725 I10 Tattoo of skin 304541375 1 02 L81.8 Screening procedure 2012 5006 Z13.9 [id number] PRETTY MCCABE [facility] [employer], [facility] [address] [place] [address] 09/23/2017 08:50:25 09/23/2017 09:26:52 Lumbago with sciatica 798106663 M54.42 Hyperlipidemia 23713831 E78.5 Thyroid nodule 675195363 E04.1 Benign ess ential hypertension 8921413 I10 Screening procedure 2012 5006 Z13.9 Screening mammography 24 014443 Z12.31 Screening for malignant neoplasm of colon 648822441 Z12.11 Snoring 79480911 R06.83 Congestion of nasal sinus 71138180 R09.81 [id number] Volodymyr Gonzalez MD [employer], [facility] [address] [place] [address] 12/21/2017 09:04:12 12/21/2017 09:40:26 Cough 31647750 R05 Benign ess ential hypertension 7927565 I10 Low back pain 584145803 M54.5 Obesity 761655415 E66.9 Screening for malignant neoplasm of colon 621291947 Z12.11 Snoring 92687198 R06.83 Thyroid nodule 796532834 E04.1 Cholesterol screening 27 6433840 Z13.220 Screening mammography 24 117821 Z12.31 Screening for malignant neoplasm of cervix 585166152 Z12.4 Health Concerns Section Related Observation LastModified by Organization Detai ls LastModified Time None Recorded Concern Status LastModified by Organization Details LastModified Time None Recorded Advance Directives Directive N: Payers Encounter Date Sequence Insurance Name Policy Number Policy Arzate Covered Member ID Arzate Member ID Guarantor Name 03/22/2017 1 [employer] (POS) [id number] Seble Paulino [id number] [employer] Paulino 05/07/2017 1 [employer] (POS) [id number] Seble Paulino [id number] Seble Paulino 06/22/2017 1 [employer] (POS) [id number] Seble Paulino [id number] Seble Paulino 09/23/2017 1 [employer] (POS) [id number] Seble Paulino [id number] Seble Paulino 12/21/2017 1 [employer] (POS) [id number] Seble Paulino [id number] Seble Paulino Notes Date Note Type Note Provider Name and Address Organization Details Recorded Time 03/22/2017 text/html Rt ear bleeding after cleaningRt thigh pain back with log setting for a monthsLt knee pain 1-2 knee 1-2 weeks , no injury Volodymyr Gonzalez MD [address], [place], [address], [facility] 03/22/2017 18:38:15 03/22/2017 text/html Hypertension F/UReported bypatient.Medicati ons:taking medications as directed; no side effects from medication Lifestyle:regular exercise; limiting/avoiding salt; compliant with low salt diet Associated Symptoms:no dizziness; no lightheadedness; no chest pain; no shortness of breath; no palpitations; no edema; no calf pain with exertion; no headache Volodymyr Gonzalez MD [address], [place], [address], [facility] 03/22/2017 18:38:15 05/07/2017 text/html sciatica pain worse within last 2 weeks PRETTY MCCABE [facility] [address], [place], [address], [facility] 05/07/2017 10:27:45 06/22/2017 text/html Hypertension F/UReported bypatient.Medicati ons:taking medications as directed; no side effects from medication Lifestyle:regular exercise; limiting/avoiding salt; compliant with low salt diet Associated Symptoms:no dizziness; no lightheadedness; no chest pain; no shortness of breath; no palpitations; no edema; no calf pain with exertion; no headache still have back pain shooting to back of the Lt thighhad PT with little helpdid not do X ray Volodymyr Gonzalez MD [address] [facility] [address] [facility] [address], [place], [address], [facility] 06/22/2017 16:32:21 09/23/2017 text/html follow up PRETTY MCCABE APN [address] [facility] [address], [place], [address], [facility] 09/23/2017 09:30:05 12/21/2017 text/html Hypertension F/UReported bypatient.Medicati ons:taking medications as directed; no side effects from medication Lifestyle:regular exercise; limiting/avoiding salt; compliant with low salt diet Associated Symptoms:no dizziness; no lightheadedness; no chest pain; no shortness of breath; no palpitations; no edema; no calf pain with exertion; no headache still cough ., after 2 Zpakstill have Lt LBP , no red flagsnot taking her losartan Volodymyr Gonzalez MD [address] [facility] [address], [place], [address], [facility] 12/21/2017 09:35:02 OBGyn Episode No OBEpisode recorded.
--- OUTSIDE RECORDS SUMMARY | 2024-07-29 18:48 | XMS_ITS | Data Portability ---
Author Organization [place] [facility], Main Office Address [address] [place] [address] Care Team Providers Care Arc Cutter Plasma Arc Name Role Phone DEVENDRA DELGADILLO Primary Care Provider DEVENDRA DELGADILLO Referring Provider [phone] Assessment No assessment recorded. Plan of Treatment Reminders Order Date Submit Date Provider Last Modified By Organization Details Last Modified Time Details Appointments None record ed. Lab None record ed. Referral None record ed. Procedures None record ed. Surgeries None record ed. Imaging None record ed. Medication Orders None record ed. Patient TargetsNo targets recorded. Patient InstructionsNo instructions recorded. Reason for Referral None Reported. Results Created Date Observation Date Name Description Value Unit Range Abnormal Flag Note LastModifiedBy Organization Detail LastModifiedTime 11/15/19 21 XR, lumba r spine No observ ation record ed. [id number] [email or web address] [place] [address], [place], [address], 10/07/2022 22:06:53 04/06/20 22 XR, knee No observ ation record ed. [id number] [id number] [place] [address], [address], 10/07/2022 22:06:53 Result Notes None recorded. Problems Name Problem SNOMED Code Status Onset Date Resolution Date Notes Provider Name and Address Organization Details Recorded Time Pain in left sacroiliac joint 8182588225114 9102 Active 2019 Not Available [facility] 3 22:05:06 Pain in right sacroiliac joint 9214850165736 9107 Active 2019 Not Available [facility] 3 22:05:06 Trochanter ic bursitis of left hip 8212982547113 03 Active 2019 Not Available [facility] 3 22:05:06 Osteoarthr itis of left knee joint 3624518635041 09 Active 2021 Not Available [facility] 3 22:05:06 Pain of left knee joint 1659243904556 07 Active 2021 Not Available [facility] 3 22:05:06 Hip pain 55689987 Active 2019 Not Available [facility] 3 22:05:06 Problem Notes None recorded. Procedures Surgical History None recorded. Imaging Results Imaging Date Name Status LastModified by Rut salmeron Details LastModified Time 11/14/2020 XR, lumbar spine completed [id number] [email or web address] [place] [address], [place], [address], 10/07/2022 22:06:53 04/06/2022 XR, knee completed [id number] [facility] [place] [address], [place], [address], 10/07/2022 22:06:53 Procedure Notes None recorded. Medical Equipment None Reported. Allergies Allergen ID Allergen Name Allergen Category Reaction Reaction Severity Criticality Documentation Date Start Date Code Code System Note Provider Name and Address Organization Details Recorded Time 49322 lisinopri l medicatio n Not available Not available Not available 10/07/2022 80291 RxNorm Not Available [facility] 3 22:06:44 Medications Name Sig Start Date Stop Date Status Note LastModified by Organization Details LastModified Time prednisone 10 mg tablet TAKE 1 TABLET BY MOUTH 3 TIMES A DAY FOR 3 DAYS, THEN TAKE 1 TABLET BY MOUTH 2 TIMES A DAY FOR 2 DAYS, THEN TAKE 1 TABLET BY MOUTH ONCE A DAY FOR 1 DAY. active Not Available Not Available No t Available atorvastati n 20 mg tablet TAKE 1 TABLET BY MOUTH ONCE DAILY AT BEDTIME 04/06 completed Not Available Not Available Not Available fluconazole 150 mg tablet TAKE 1 TABLET BY MOUTH ONCE A WEEK active Not Available Not Available No t Available meloxicam 15 mg tablet Take 1 tablet by mouth once daily 2022 active Not Available Not Available Not Avai lable amlodipine 5 mg tablet TAKE 1 TABLET BY MOUTH ONCE DAILY FOR 30 DAYS active Not Available Not Available No t Available tramadol 50 mg tablet TAKE 1 TABLET BY MOUTH THREE TIMES DAILY NEEDED active Not Available Not Available No t Available prednisone 10 mg tablets in a dose pack Take 1 tab by mouth, 3 times a day for 3 daysTake 1 tab by mouth 2 times a day for 2 daysTake 1 tab by mouth once a day for 1 day active Not Available Not Available No t Available meloxicam 7.5 mg tablet TAKE 1 TABLET BY MOUTH ONCE DAILY NEEDED FOR 90 DAYS active Not Available Not Available No t Available Kenalog 10 mg/mL suspension for injection In office injection administe red by the provider active Not Available Not Available No t Available amlodipine 10 mg tablet TAKE 1 TABLET BY MOUTH ONCE DAILY FOR 90 DAYS active Not Available Not Available No t Available doxycycline monohydrate 100 mg capsule active Not Available Not Available Not Available cephalexin 500 mg capsule TAKE 1 CAPSULE BY MOUTH THREE TIMES DAILY 04/06 completed Not Available Not Available Not Available fluoxetine 10 mg capsule TAKE 1 CAPSULE BY MOUTH ONCE DAILY FOR 30 DAYS active Not Available Not Available No t Available ergocalcife rol (vitamin D2) 1,250 mcg (50,000 unit) capsule TAKE 1 CAPSULE BY MOUTH ONCE A WEEK active Not Available Not Available No t Available albuterol sulfate HFA 90 mcg/actuati on aerosol inhaler INHALE 2 PUFFS BY MOUTH EVERY 4 HOURS NEEDED active Not Available Not Available No t Available losartan 50 mg-hydrochl orothiazide 12.5 mg tablet active Not Available Not Available Not Available oxybutynin chloride 5 mg tablet TAKE 1 TABLET BY MOUTH TWICE DAILY 04/06 completed Not Available Not Available Not Available fluticasone propionate 50 mcg/actuati on nasal spray,suspe nsion USE 2 SPRAY(S) IN EACH NOSTRIL ONCE DAILY 04/06 completed Not Available Not Available Not Available Asprin Ec Low Dose 04/06 completed Not Available Not Available Not Available lidocaine (PF) 10 mg/mL (1 %) injection solution In office injection administe red by the provider 04/06 completed [facility]: [phone] [phone] Not Available Not Available Not Available Symbicort 160 mcg-4.5 mcg/actuati on HFA aerosol inhaler INHALE 2 PUFFS BY MOUTH TWICE DAILY active Not Available Not Available No t Available ropivacaine (PF) 5 mg/mL (0.5 %) injection solution Take 40 mg by injection route. active Not Available Not Available No t Available Flucelvax Quad (PF) 60 mcg (15 mcg x 4)/0.5 mL IM syringe active Not Available Not Available N ot Available Vitals Date Recorded Body mass index (BMI) Body height Body weight Provider Name and Address Organization Details Last Updated DateTime 11/14/2020 42.8 kg/m2 167.64 cm 732619.98 g Not Available [facility] 10/07/2022 22:04:30 Date Recorded Body mass index (BMI) Body height Body weight Provider Name and Address Organization Details Last Updated DateTime 12/26/2020 42.3 kg/m2 167.64 cm 629569.2 g Not Available [facility] 10/07/2022 22:04:30 Date Recorded Body mass index (BMI) Body height Body weight Provider Name and Address Organization Details Last Updated DateTime 04/06/2022 39.5 kg/m2 167.64 cm 166639.13 g Not Available [facility] 10/07/2022 22:04:30 Date Recorded Body mass index (BMI) Body height Body weight Provider Name and Address Organization Details Last Updated DateTime 05/28/2022 38.4 kg/m2 167.64 cm 539976.98 g Not Available [facility] 10/07/2022 22:04:30 Social History Question Answer Notes LastModified by Organizat ion Details LastModified Time Tobacco Smoking Status Never Smoker Not Available [facility] 10/07/2022 22:04:03 What Is Your Level Of Alcohol Consumption? None [id number] Information not available 10/07/2022 Sex: Unknown Functional Status None recorded. Mental Status None recorded. Family History Relationship Description Onset Age of this Age Resolved Age Notes LastModified by Organization Details LastModified Time Mother Family history of malignant neoplasm [id number] Not available 10/07/2022 22:04:21 Paternal Grandmother Family history of malignant neoplasm [id number] Not available 10/07/2022 22:04:21 Paternal Grandmother Hypertensive disorder [id number] Not available 10/07/2022 22:04:21 Medical History Condition Response CANCER: SPECIFY Y Gynecological HistoryNo gynecological history recorded. Obstetrics History GPAL:G 0 P 0 0 0 0 Past Encounters Encounter ID Performer Location Encounter Start Date Encounter Closed Date Diagnosis/Indication Diagnosis SNOMED-CT Code Diagnosis ICD10 Code [id number] [facility] [place] [address] [place] [address] 11/14/2020 00:00:00 11/14/2020 10:23:10 [id number] [facility] [place] [address] [place] [address] 12/26/2020 00:00:00 12/26/2020 10:28:29 [id number] [facility] [place] [address] [place] [address] 04/06/2022 00:00:00 04/06/2022 11:45:44 [id number] [facility] [place] [address] [place] [address] 05/28/2022 00:00:00 05/28/2022 09:43:22 Health Concerns Section Related Observation LastModified by Organization Detai ls LastModified Time None Recorded Concern Status LastModified by Organization Details LastModified Time None Recorded Advance Directives Directive None Recorded Payers None recorded. Notes Date Note Type Note Provider Name and Address Organization Details Recorded Time 11/14/2020 text/html Back PainReporte d bypatient.Location :pain radiating to the buttocks Quality:dull Severity:worsening Duration:chronic Context:unusual activity; prior back problems Associated Symptoms:no fever; no weak limbs; no numbness of the legs/feet; no tingling; no incontinence; no shortness of breathHip(s)Report ed bypatient.Location :left; lateral Quality:throbbing; superficial; frequent Severity:moderate Duration:continuou s since onset Timing:occasional Context:overuse Alleviating Factors:lying down; heat; ice; rest; exercise; limited weight bearing Aggravating Factors:standing; walking; bending/squatting Associated Symptoms:no numbness; no redness; no ecchymosis; no catching/locking; no popping/clicking; no buckling; no grinding; no instability; no radiation down leg; no drainage; no fever; no chills; no weight loss; no change in bowel/bladder habits;weakness;sw elling Not Available [facility] 11/14/2020 10:23:10 12/26/2020 text/html Back PainReporte d bypatient.Location :pain radiating to the buttocks Quality:dull Severity:worsening Duration:chronic Context:unusual activity; prior back problems Associated Symptoms:no fever; no weak limbs; no numbness of the legs/feet; no tingling; no incontinence; no shortness of breathHip(s)Report ed bypatient.Location :left; lateral Quality:throbbing; superficial; frequent Severity:moderate Duration:continuou s since onset Timing:occasional Context:overuse Alleviating Factors:lying down; heat; ice; rest; exercise; limited weight bearing Aggravating Factors:standing; walking; bending/squatting Associated Symptoms:no numbness; no redness; no ecchymosis; no catching/locking; no popping/clicking; no buckling; no grinding; no instability; no radiation down leg; no drainage; no fever; no chills; no weight loss; no change in bowel/bladder habits;weakness;sw elling Not Available [facility] 12/26/2020 10:28:29 04/06/2022 text/html Back PainReporte d bypatient.Location :pain radiating to the buttocks Quality:dull Severity:worsening Duration:chronic Context:unusual activity; prior back problems Associated Symptoms:no fever; no weak limbs; no numbness of the legs/feet; no tingling; no incontinence; no shortness of breathHip(s)Report ed bypatient.Location :left; lateral Quality:throbbing; superficial; frequent Severity:moderate Duration:continuou s since onset Timing:occasional Context:overuse Alleviating Factors:lying down; heat; ice; rest; exercise; limited weight bearing Aggravating Factors:standing; walking; bending/squatting Associated Symptoms:no numbness; no redness; no ecchymosis; no catching/locking; no popping/clicking; no buckling; no grinding; no instability; no radiation down leg; no drainage; no fever; no chills; no weight loss; no change in bowel/bladder habits;weakness;sw ellingKneeReported bypatient.Quality: aching; throbbing; dull Severity:moderate Duration:continuou s since onset Timing:chronic Alleviating Factors:sitting; lying down; rest; elevation Aggravating Factors:bending/sq uatting; weight bearing Associated Symptoms:no weakness; no numbness; no tingling; no redness; no ecchymosis; no catching/locking; no popping/clicking; no buckling; no instability; no radiation down leg; no drainage; no fever; no chills; no weight loss; no change in bowel/bladder habits;swelling;wa rmth;grinding Not Available [facility] [employer] 04/06/2022 11:45:44 05/28/2022 text/html Back PainReporte d bypatient.Location :pain radiating to the buttocks Quality:dull Severity:worsening Duration:chronic Context:unusual activity; prior back problems Associated Symptoms:no fever; no weak limbs; no numbness of the legs/feet; no tingling; no incontinence; no shortness of breathHip(s)Report ed bypatient.Location :left; lateral Quality:throbbing; superficial; frequent Severity:moderate Duration:continuou s since onset Timing:occasional Context:overuse Alleviating Factors:lying down; heat; ice; rest; exercise; limited weight bearing Aggravating Factors:standing; walking; bending/squatting Associated Symptoms:no numbness; no redness; no ecchymosis; no catching/locking; no popping/clicking; no buckling; no grinding; no instability; no radiation down leg; no drainage; no fever; no chills; no weight loss; no change in bowel/bladder habits;weakness;sw ellingKneeReported bypatient.Quality: aching; throbbing; dull Severity:moderate Duration:continuou s since onset Timing:chronic Alleviating Factors:sitting; lying down; rest; elevation Aggravating Factors:bending/sq uatting; weight bearing Associated Symptoms:no weakness; no numbness; no tingling; no redness; no ecchymosis; no catching/locking; no popping/clicking; no buckling; no instability; no radiation down leg; no drainage; no fever; no chills; no weight loss; no change in bowel/bladder habits;swelling;wa rmth;grinding Not Available [facility] 05/28/2022 09:43:22 OBGyn Episode No OBEpisode recorded.
--- OUTSIDE RECORDS SUMMARY | 2024-07-29 18:49 | XMS_ITS | Data Portability ---
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 Plan of Treatment Reminders Order Date Submit Date Provider Last Modified By Organization Details Last Modified Time Details Appointments None recorded. Lab HbA1c (hemoglobin A1c), blood 2021 022 [facility], [address] [place] [address], [address], [place], [address], 20:08:09 lipid panel, serum 2021 022 [facility], [address] [place] [address], [facility] [address], [place], [address], 20:08:08 CMP, serum or plasma 2021 022 [facility], [address] [place] [address], [facility] [address], [place], [address], 20:08:08 CBC w/ auto diff 2021 022 [facility], [address] [place] [address], [address], [place], [address], 20:08:07 albumin/cre atinine, mass ratio, urine 2021 022 [facility], [address], [address], [place], [address], 2 20:08:09 HbA1c (hemoglobin A1c), blood 2022 023 [facility], [address], [address], [place], [address], 3 15:11:17 TSH + free T4, serum 2022 023 [facility], [address], [address], [place], [address], 3 15:11:16 CMP, serum or plasma 2022 023 [facility], [address], [address], [place], [address], 3 16:00:56 albumin/cre atinine, mass ratio, urine 2022 023 [facility], [address], [address], [place], [address], 3 15:11:15 CMP, serum or plasma 2022 023 [facility], [address], [address], [place], [address], 3 14:06:13 TSH + free T4, serum 2022 023 [facility], [address], [address], [place], [address], 3 15:35:56 HbA1c (hemoglobin A1c), blood 2022 023 [facility], [address], [address], [place], [address], 3 14:06:12 lipid panel, serum 2022 023 [facility], [address], [address], [place], [address], 3 20:08:36 TSH + free T4, serum 2022 023 [facility], [address], [address], [place], [address], 3 07:13:59 albumin/cre atinine, mass ratio, urine 2022 023 [facility], [address], [address], [place], [address], 3 07:13:58 CMP, serum or plasma 2022 023 [facility], [address], [address], [place], [address], 3 20:08:37 hepatitis C Ab, signal-to-c utoff, serum or plasma 2022 023 [facility], [address], [address], [place], [address], 3 07:13:59 HIV 1 + 2, meaningful use set 2022 023 [facility], [address], [address], [place], [address], 3 07:14:00 lipid panel, serum 2022 023 [facility], [address], [address], [place], [address], 3 09:15:20 TSH + free T4, serum 2022 023 [facility], [address] [facility], [address], [place], [address], 3 17:09:20 albumin/cre atinine, mass ratio, urine 2022 023 [facility], [address] [place] [address], [address], [place], [address], 3 17:09:19 CMP, serum or plasma 2022 023 [facility], [address] [place] [address], [address], [place], [address], 3 09:15:20 Referral orthopedic surgeon referral 2022 023 [facility], [address], [place], [address], 3 05:01:25 orthopedic surgeon referral 2022 023 vickie Smyth MD, [address], [place], [address], 3 15:16:32 Procedures None recorded. Surgeries None recorded. Imaging US, thyroid 2022 023 [facility] (Imaging), [address], [place], [address], 3 20:34:32 MAMMO, screening, bilateral 2022 023 [facility] (Imaging), [address], [place], [address], 3 09:50:16 XR, knee, 3 view 2022 023 [facility] (Imaging), [address] [facility] [address] [address], [place], [address], 3 11:42:56 XR, hip + pelvis, bilateral, 3 or 4 view 2022 023 [facility] (Imaging), [address] [facility] [address], [place], [address], 3 11:34:59 XR, hip + pelvis, bilateral, 3 or 4 view [address] (Imaging), [address] [facility] [address], [place], [address], 3 10:46:42 Medication Orders amlodipine 10 mg tablet 2021 022 [facility], [address], [place], [address], 4 09:20:07 atorvastati n 20 mg tablet 2022 023 [facility] facilityX[facility], [address], [place], [address], 3 12:27:27 hydroxyzine HCl 25 mg tablet 2022 023 [facility] facilityKoolConnect [facility] [address], [address], [place], [address], 3 08:54:46 Ozempic 0.25 mg or 0.5 mg (2 mg/1.5 mL) subcutaneou s pen injector 2022 023 [facility] facilityH[facility], [address], [place], [address], 3 14:39:21 amlodipine 10 mg tablet 2022 023 [facility] [employer] [facility] [address], [address], [place], [address], 4 09:20:07 Victoza 3-Mikhail 0.6 mg/0.1 mL (18 mg/3 mL) subcutaneou s pen injector 2022 023 [facility] [address], [address], [place], [address], 3 08:58:33 atorvastati n 20 mg tablet 2022 023 [facility] [address], [address], [place], [address], 3 12:27:32 amlodipine 5 mg tablet 2022 023 [facility] [address], [address], [place], [address], 3 08:58:33 Patient TargetsNo targets recorded. Patient Instructions Encounter Date Encounter Id Patient Instructions Last Modified By Organization Details Last Modified Time 09/30/2021 [id number] A healthy lifestyle: care instructions Not available 09/30/2021 10:16:06 learning about high blood pressure Not available 09/30/2021 10:15:17 dash diet: care instructions Not available 09/30/2021 10:15:17 How To Lower Blood Pressure Not available 09/30/2021 10:15:17 09/02/2022 [id number] A healthy lifestyle: care instructions Not available 09/02/2022 16:01:13 hip arthritis: care instructions Not available 09/02/2022 15:54:10 osteoarthritis: care instructions Not available 09/02/2022 15:54:10 09/21/2022 [id number] A healthy lifestyle: care instructions Not available 09/21/2022 09:38:58 rhythm strip, EKG* [facility] Not available 09/21/2022 15:04:15 I have reviewed the patient's medical record and the note from this clinical encounter. I was available by phone for the duration of the visit. I agree with the assessment and plan with the following addendum: [none]. 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 A negat tano Colog uard resul t indic ates a low likel ihood that a color ectal cance r (CRC) or advan rosio adeno ma (elayne omato us polyp s with more advan rosio pre-m align ant featu res) is prese nt. The chanc e that a perso n with a negat tano Colog uard test has a color ectal cance r is less than 1 in 1500 (nega tive predi ctive value >99.9 %) or has an advan rosio adeno ma is less than 5.3% (nega tive predi ctive value 94.7% ). These data are based on a prosp ectiv e cross -sect ional study of 10,00 0 indiv idual s at [facility] risk for color ectal cance r who were scree babatunde with both Colog uard and colon oscop y. (Joshua Dillard et al, N Engl J Med 2014; 370(1 4):12 86-12 97) The kim l value (refe rence range ) for this assay is negat tano. COLOG UARD RE-SC REENI NG RECOM MENDA TION: Perio dic color ectal cance r scree mindi is an impor tant part of preve ntive healt hcare for asymp tomat ic indiv idual s at [facility] risk for color ectal cance r. Follo wing a negat tano Colog uard resul t, the Ameri can Cance r Socie ty and U.S. Multi -Soci ety Task Force scree mindi guide lines recom mend a Colog uard re-sc melody forman inter cyndy of 3 years . Refer ences : Ameri can Cance r Socie ty Guide line for Color ectal Cance r Scree mindi: https ://ww w.can cer.o rg/ca ncer/ colon -rect al-ca ncer/ detec tion- diagn osis- stagi ng/ac s-rec ommen datio ns.ht ml.; Ambrosio LUNA, Irma dempsey CR, Gege ReynosoK, Color ectal Cance r Scree mindi: Recom menda tions for Physi cians and Patie nts from the U.S. Multi -Soci ety Task Force on Color ectal Cance r Scree mindi , Am J Adriana bruno rolog y 2017; 112:1 016-1 030. TEST DESCR IPTIO N: [place] site algor ithmi c soila sis of stool DNA-b marquis alicea with hemog lobin immun oassa y. Quant itati ve value s of indiv idual bioma rkers are not repor table and are not assoc iated with indiv idual bioma rker resul t refer ence range s. Colog uard is inten ded for color ectal cance r scree mindi of adult s of eithe r sex, 45 years or older , who are at [facility] for color ectal cance r (CRC) . Colog uard has been appro bird for use by the U.S. FDA. The perfo rmanc e of Colog uard was estab lishe d in a cross secti onal study of [facility] adult s aged 50-84 . Colog uard perfo rmanc e in patie nts ages 45 to 49 years was estim ated by sub-g roup soila sis of near- age group s. Colon oscop ies perfo rmed for a posit tano resul t may find as the most clini kayy signi fican t lesio n: color ectal cance r [4.0% ], advan rosio adeno ma (incl uding sessi le devin micky polyp s great er than or equal to 1cm diame ter) [20%] or non- advan rosio adeno ma [31%] ; or no color ectal neopl moo [45%] . These estim ates are deriv ed from a prosp ectiv e cross -sect ional scree mindi study of 0 indiv idual s at [facility] risk for color ectal cance r who were scree babatunde with both Colog uard and colon oscop y. (Joshua Dillard et al, N Engl J Med 2014; 370(1 4):12 86-12 97.) Colog uard may produ ce a false negat tano or false posit tano resul t (no color ectal cance r or preca ncero us polyp prese nt at colon oscop y follo w up). A negat tano Colog uard test resul t does not guara ntee the absen ce of CRC or advan rosio adeno ma (pre- cance r). The curre nt Colog uard scree mindi inter cyndy is every 3 years . (Amer ican Cance r Socie ty and U.S. Multi -Soci ety Task Force ). Colog uard perfo rmanc e data in a 0 patie nt pivot al study using colon oscop y as the refer ence metho d can be acces sed at the follo wing locat ion: www.e xactl abs.c om/re sults . Addit ional descr iptio n of the Colog uard test proce ss, warni ngs and preca ution s can be found at www.c astnoogu heidy.c om. Not Available [facility] (Cologuard Orders Only) [address], [place], [address], 09/14/2021 10:50:14 09/30/19 22 10/01/2021 CBC WITH DIFFE RENTI AL/PL ATELE T WBC 6.0 x10e3 /uL 3.4-10 .8 Not Available [facility] ([facility]) [address] [place], [address], 10/01/2021 20:08:07 09/30/19 22 10/01/2021 CBC WITH DIFFE RENTI AL/PL ATELE T RBC 5.01 x10e6 /uL 3.77-5 .28 Not Available [facility] ([facility]) [address] [place], [address], 10/01/2021 20:08:07 09/30/1910/01/2021 CBC WITH DIFFE RENTI AL/PL ATELE T hemoglobin 14.3 g/dL 11.1-1 5.9 Not Available [facility] ([facility]) [address] [place], [address], 10/01/2021 20:08:07 09/30/1910/01/2021 CBC WITH DIFFE RENTI AL/PL ATELE T hematocrit 41.3 % 34.0-4 6.6 Not Available [facility] ([facility]) [address] [place], [address], 10/01/2021 20:08:07 09/30/1910/01/2021 CBC WITH DIFFE RENTI AL/PL ATELE T MCV 82 fL 79-97 Not Available [facility] ([facility]) [address] [place], [address], 10/01/2021 20:08:07 09/30/19 22 10/01/2021 CBC WITH DIFFE RENTI AL/PL ATELE T MCH 28.5 pg 26.6-3 3.0 Not Available [facility] ([facility]) [address] [place], [address], 10/01/2021 20:08:07 09/30/19 22 10/01/2021 CBC WITH DIFFE RENTI AL/PL ATELE T MCHC 34.6 g/dL 31.5-3 5.7 Not Available [facility] ([facility]) [address] [facility], [place], [address], 10/01/2021 20:08:07 09/30/19 22 10/01/2021 CBC WITH DIFFE RENTI AL/PL ATELE T RDW 14.1 % 11.7-1 5.4 Not Available [facility] ([facility]) [address] [facility], [place], [address], 10/01/2021 20:08:07 09/30/19 22 10/01/2021 CBC WITH DIFFE RENTI AL/PL ATELE T platelets 323 x10e3 /uL 150-45 0 Not Available [facility] ([facility]) [address] [facility], [place], [address], 10/01/2021 20:08:07 09/30/19 22 10/01/2021 CBC WITH DIFFE RENTI AL/PL ATELE T neutrophils 44 % not estab. Not Available [facility] ([facility]) [address] [facility], [place], [address], 10/01/2021 20:08:07 09/30/19 22 10/01/2021 CBC WITH DIFFE RENTI AL/PL ATELE T lymphs 43 % not estab. Not Available [facility] ([facility]) [address] [facility], [place], [address], 10/01/2021 20:08:07 09/30/19 22 10/01/2021 CBC WITH DIFFE RENTI AL/PL ATELE T monocytes 9 % not estab. Not Available [facility] ([facility]) [address] [place], [address], 10/01/2021 20:08:07 09/30/19 22 10/01/2021 CBC WITH DIFFE RENTI AL/PL ATELE T eos 3 % not estab. Not Available [facility] ([facility]) [address] [facility], [place], [address], 10/01/2021 20:08:07 09/30/19 22 10/01/2021 CBC WITH DIFFE RENTI AL/PL ATELE T basos 1 % not estab. 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 0 Not Available [facility] ([facility]) [address] [place], [address], 10/01/2021 20:08:07 09/30/19 22 10/01/2021 CBC WITH DIFFE RENTI AL/PL ATELE T lymphs (absolute) 2.6 x10e3 /uL 0.7-3. 1 Not Available [facility] ([facility]) [address] [place], [address], 10/01/2021 20:08:07 09/30/19 22 10/01/2021 CBC WITH DIFFE RENTI AL/PL ATELE T monocytes(ab solute) 0.5 x10e3 /uL 0.1-0. 9 Not Available [facility] ([facility]) [address] [place], [address], 10/01/2021 20:08:07 09/30/19 22 10/01/2021 CBC WITH DIFFE RENTI AL/PL ATELE T eos (absolute) 0.2 x10e3 /uL 0.0-0. 4 Not Available [facility] ([facility]) [address] [facility], [place], [address], 10/01/2021 20:08:07 09/30/19 22 10/01/2021 CBC WITH DIFFE RENTI AL/PL ATELE T baso (absolute) 0.1 x10e3 /uL 0.0-0. 2 Not Available [facility] ([facility]) [address] [facility], [place], [address], 10/01/2021 20:08:07 09/30/19 22 10/01/2021 CBC WITH DIFFE RENTI AL/PL ATELE T immature granulocytes 0 % not estab. Not Available [facility] ([facility]) [address] [facility], [place], [address], 10/01/2021 20:08:07 09/30/19 22 10/01/2021 CBC WITH DIFFE RENTI AL/PL ATELE T immature grans (abs) 0.0 x10e3 /uL 0.0-0. 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 METAB OLIC PANEL (14) glucose 102 mg/dL 65-99 above high normal Not Available [facility] ([facility]) [address] [facility], [place], [address], 10/01/2021 20:08:08 09/30/19 22 10/01/2021 COMP. METAB OLIC PANEL (14) BUN 13 mg/dL 8-27 Not Available [facility] ([facility]) [address] [facility], [place], [address], 10/01/2021 20:08:08 09/30/19 22 10/01/2021 COMP. METAB OLIC PANEL (14) creatinine 0.91 mg/dL 0.57-1 .00 Eff ectiv e Febru jonas 2021 [facility] will begin repor ting the 2020 CKD-E PI creat inine equat ion that estim ates kidne y funct ion witho ut a race varia ble. Not Available [facility] ([facility]) [address] [place], [address], 10/01/2021 20:08:08 09/30/19 22 10/01/2021 COMP. METAB OLIC PANEL (14) eGFR if nonafricn AM 67 mL/mi n/1.7 3 >59 Not Available [facility] ([facility]) [address] [facility], [place], [address], 10/01/2021 20:08:08 09/30/19 22 10/01/2021 COMP. METAB OLIC PANEL (14) eGFR if africn AM 78 mL/mi n/1.7 3 >59 In accor dance with recom menda tions from the NKF-A SN Task force , [facility] is in the proce ss of updat ing its eGFR calcu latio n to the 2020 CKD-E PI creat inine equat ion that estim ates kidne y funct ion witho ut a race varia ble. Not Available [facility] ([facility]) [address] [place], [address], 10/01/2021 20:08:08 09/30/19 22 10/01/2021 COMP. METAB OLIC PANEL (14) BUN/creatini ne ratio 14 12-28 Not Available [facility] ([facility]) [address] [facility] [place], [address], 10/01/2021 20:08:08 09/30/19 22 10/01/2021 COMP. METAB OLIC PANEL (14) sodium 141 mmol/ L 134-14 4 Not Available [facility] ([facility]) [address] [facility] [place], [address], 10/01/2021 20:08:08 09/30/19 22 10/01/2021 COMP. METAB OLIC PANEL (14) potassium 3.8 mmol/ L 3.5-5. 2 Not Available [facility] ([facility]) [address] [facility] [place], [address], 10/01/2021 20:08:08 09/30/19 22 10/01/2021 COMP. METAB OLIC PANEL (14) chloride 102 mmol/ L 96-106 Not Available [facility] ([facility]) [address] [facility], [address], 10/01/2021 20:08:08 09/30/19 22 10/01/2021 COMP. METAB OLIC PANEL (14) carbon dioxide, total 25 mmol/ L 20-29 Not Available [facility] ([facility]) [address] [facility] [place], [address], 10/01/2021 20:08:08 09/30/19 22 10/01/2021 COMP. METAB OLIC PANEL (14) calcium 9.4 mg/dL 8.7-10 .3 Not Available [facility] ([facility]) [address] [facility] [place], [address], 10/01/2021 20:08:08 09/30/19 22 10/01/2021 COMP. METAB OLIC PANEL (14) protein, total 7.0 g/dL 6.0-8. 5 Not Available [facility] ([facility]) [address] [facility] [place], [address], 10/01/2021 20:08:08 09/30/19 22 10/01/2021 COMP. METAB OLIC PANEL (14) albumin 4.3 g/dL 3.8-4. 8 Not Available [facility] ([facility]) [address] [facility] [place], [address], 10/01/2021 20:08:08 09/30/19 22 10/01/2021 COMP. METAB OLIC PANEL (14) globulin, total 2.7 g/dL 1.5-4. 5 Not Available [facility] ([facility]) [address] [facility] [place], [address], 10/01/2021 20:08:08 09/30/19 22 10/01/2021 COMP. METAB OLIC PANEL (14) A/G ratio 1.6 1.2-2. 2 Not Available [facility] ([facility]) [address] [facility] [place], [address], 10/01/2021 20:08:08 09/30/19 22 10/01/2021 COMP. METAB OLIC PANEL (14) bilirubin, total 0.2 mg/dL 0.0-1. 2 Not Available [facility] ([facility]) [address] [place], [address], 10/01/2021 20:08:08 09/30/19 22 10/01/2021 COMP. METAB OLIC PANEL (14) alkaline phosphatase 99 IU/L 44-121 Not Available [facility] ([facility]) [address] [facility] [place], [address], 10/01/2021 20:08:08 09/30/19 22 10/01/2021 COMP. METAB OLIC PANEL (14) AST (SGOT) 22 IU/L 0-40 Not Available [facility] ([facility]) [address] [place], [address], 10/01/2021 20:08:08 09/30/19 22 10/01/2021 COMP. METAB OLIC PANEL (14) ALT (SGPT) 22 IU/L 0-32 Not Available [facility] ([facility]) [address] [place], [address], 10/01/2021 20:08:08 09/30/19 22 10/01/2021 LIPID PANEL cholesterol, total 238 mg/dL 100-19 9 above high normal Not Available [facility] ([facility]) [address] [place], [address], 10/01/2021 20:08:08 09/30/19 22 10/01/2021 LIPID PANEL triglyceride s 112 mg/dL 0-149 Not Available [facility] ([facility]) [address] [place], [address], 10/01/2021 20:08:08 09/30/19 22 10/01/2021 LIPID PANEL HDL cholesterol 49 mg/dL >39 Not Available [facility] ([facility]) [address] [place], [address], 10/01/2021 20:08:08 09/30/19 22 10/01/2021 LIPID PANEL VLDL cholesterol brittanie 20 mg/dL 5-40 Not Available [facility] ([facility]) [address] [place], [address], 10/01/2021 20:08:08 09/30/19 22 10/01/2021 LIPID PANEL LDL chol calc ([facility]) 169 mg/dL 0-99 above high normal Not Available [facility] ([facility]) [address] [place], [address], 10/01/2021 20:08:08 09/30/19 22 10/01/2021 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 No urine speci men recei bird. 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 6 above high normal Predi abete s: 5.7 - 6.4 Diabe beka: >6.4 Glyce tangela contr ol for adult s with diabe beka: <7.0 Not Available [facility] ([facility]) [address] [facility], [place], [address], 10/01/2021 20:08:09 09/30/1910/01/2021 SPECI MEN STATU S REPOR T specimen status report TNP Test not perfo rmed. No urine speci men recei bird. TEST: [id number] Album in/Cr eatin ine Ratio ,Urin e Not Available [facility] ([facility]) [address] [facility], [place], [address], 10/01/2021 20:08:10 09/10/19 23 09/11/2022 ALBUM IN/CR EATIN INE RATIO ,URIN E creatinine, urine - mg/dL Test not perfo rmed. No urine speci men recei bird. Not Available [facility] ([facility]) [address] [place], [address], 09/11/2022 15:11:15 09/10/19 23 09/11/2022 ALBUM IN/CR EATIN INE RATIO ,URIN E albumin, urine - Test not perfo rmed Not Available [facility] ([facility]) [address] [place], [address], 09/11/2022 15:11:15 09/10/19 23 09/11/2022 TSH+F REE T4 TSH 1.590 uIU/m L 0.450- 4.500 Not Available [facility] ([facility]) [address] [place], [address], 09/11/2022 15:11:16 09/10/19 23 09/11/2022 TSH+F REE T4 T4,free(dire ct) 1.13 NG/dL 0.82-1 .77 Not Available [facility] ([facility]) [address] [place], [address], 09/11/2022 15:11:16 09/10/1909/11/2022 HEMOG LOBIN A1C hemoglobin A1C 6.0 % 4.8-5. 6 above high normal Predi abete s: 5.7 - 6.4 Diabe beka: >6.4 Glyce tangela contr ol for adult s with diabe beka: <7.0 Not Available [facility] ([facility]) [address] [place], [address], 09/11/2022 15:11:17 09/10/19 23 09/11/2022 SPECI MEN STATU S REPOR T specimen status report TNP Test not perfo rmed. No urine speci men recei bird. TEST: [id number] 5 Album in/Cr eatin ine Ratio ,Urin e Not Available [facility] ([facility]) [address] [facility], [place], [address], 09/11/2022 15:11:15 09/21/19 23 09/21/2022 LIPID PANEL cholesterol, total 218.3 mg/dL 140.0- 200.0 above high normal Not Available [facility] [address] [place] [address], [address], 09/21/2022 20:08:36 09/21/19 23 09/21/2022 LIPID PANEL triglyceride s 81 mg/dL <=150 Not Available [facility] [address] [place] [address], [address], 09/21/2022 20:08:36 09/21/19 23 09/21/2022 LIPID PANEL HDL cholesterol 54.4 mg/dL 40.0-1 00.0 Not Available [facility] [address] [place], [address], 09/21/2022 20:08:36 09/21/19 23 09/21/2022 LIPID PANEL VLDL cholesterol brittanie 16.20 mg/dL 5.00-4 0.00 Not Available [facility] [address] [place], [address], 09/21/2022 20:08:36 09/21/19 23 09/21/2022 LIPID PANEL LDL chol calc ([facility]) 149.6 Not Available [facility] Department [address] [place], [address], 09/21/2022 20:08:36 09/21/19 23 09/21/2022 COMP. METAB OLIC PANEL (14) glucose 104 mg/dL 65-99 above high normal ANION GP 15.0 mmol/ L N OSMOL 285.0 mOsM/ L N REFER ENCE RANGE : 275.0 -301. 0 Not Available [facility] [address] [place], [address], 09/21/2022 20:08:36 09/21/19 23 09/21/2022 COMP. METAB OLIC PANEL (14) BUN 15 mg/dL 8-26 Not Available [facility] [address] [place] [address], [address], 09/21/2022 20:08:36 09/21/19 23 09/21/2022 COMP. METAB OLIC PANEL (14) creatinine 0.86 mg/dL 0.50-1 .40 Not Available [facility] [address] [place] [address], [address], 09/21/2022 20:08:36 09/21/19 23 09/21/2022 COMP. METAB OLIC PANEL (14) eGFR 75 mL/mi n/1.7 3 >=60 Not Available [facility] [address] [place] [address], [address], 09/21/2022 20:08:36 09/21/19 23 09/21/2022 COMP. METAB OLIC PANEL (14) BUN/creatini ne ratio 17.8 Not Available [facility] [address] [place], [address], 09/21/2022 20:08:36 09/21/19 23 09/21/2022 COMP. METAB OLIC PANEL (14) sodium 142.4 mmol/ L 136.0- 144.0 Not Available [facility] [address] [place] [address], [address], 09/21/2022 20:08:36 09/21/19 23 09/21/2022 COMP. METAB OLIC PANEL (14) potassium 3.7 mmol/ L 3.5-5. 3 Not Available [facility] [address] [place] [address], [address], 09/21/2022 20:08:36 09/21/19 23 09/21/2022 COMP. METAB OLIC PANEL (14) chloride 105 mmol/ l 101-11 1 Not Available [facility] [address] [place], [address], 09/21/2022 20:08:36 09/21/19 23 09/21/2022 COMP. METAB OLIC PANEL (14) carbon dioxide, total 25.8 mmol/ L 21.0-3 2.0 Not Available [facility] [address] [place], [address], 09/21/2022 20:08:36 09/21/19 23 09/21/2022 COMP. METAB OLIC PANEL (14) calcium 9.4 mg/dL 8.2-10 .0 Not Available [facility] [address] [place], [address], 09/21/2022 20:08:36 09/21/19 23 09/21/2022 COMP. METAB OLIC PANEL (14) protein, total 7.1 g/dL 6.7-8. 2 Not Available [facility] [address] [place], [address], 09/21/2022 20:08:36 09/21/19 23 09/21/2022 COMP. METAB OLIC PANEL (14) albumin 4.1 g/dL 3.5-5. 5 Not Available [facility] [address] [place], [address], 09/21/2022 20:08:36 09/21/19 23 09/21/2022 COMP. METAB OLIC PANEL (14) globulin, total 3.0 g/dL 1.5-4. 5 Not Available [facility] [address] [place], [address], 09/21/2022 20:08:36 09/21/19 23 09/21/2022 COMP. METAB OLIC PANEL (14) A/G ratio 1.4 Not Available [facility] Department [address] [place], [address], 09/21/2022 20:08:36 09/21/19 23 09/21/2022 COMP. METAB OLIC PANEL (14) bilirubin, total 0.2 mg/dL 0.0-1. 2 Not Available [facility] [address] [place], [address], 09/21/2022 20:08:36 09/21/19 23 09/21/2022 COMP. METAB OLIC PANEL (14) alkaline phosphatase 102.5 IU/L 42.0-1 21.0 Not Available [facility] [address] [place], [address], 09/21/2022 20:08:36 09/21/19 23 09/21/2022 COMP. METAB OLIC PANEL (14) AST (SGOT) 14.8 U/L 10.0-4 2.0 Not Available [facility] [address] [place], [address], 09/21/2022 20:08:36 09/21/19 23 09/21/2022 COMP. METAB OLIC PANEL (14) ALT (SGPT) 11.4 U/L 10.0-6 0.0 Not Available [facility] [address] [place], [address], 09/21/2022 20:08:36 09/21/19 23 09/22/2022 ALBUM IN/CR EATIN INE RATIO ,URIN E creatinine, urine 148.0 mg/dL notest ab. Not Available [facility] ([facility]) [address] [place], [address], 09/25/2022 07:13:58 09/21/19 23 09/22/2022 ALBUM IN/CR EATIN INE RATIO ,URIN E albumin, urine 3.1 ug/mL notest ab. Not Available [facility] ([facility]) [address] [facility], [place], [address], 09/25/2022 07:13:58 09/21/19 23 09/22/2022 ALBUM IN/CR EATIN INE RATIO ,URIN E alb/creat ratio 2 mg/g_ creat 0-29 Kim l: 0 - 29 Moder ately incre ased: 30 - 300 Sever robert incre ased: >300 Not Available [facility] ([facility]) [address] [place], [address], 09/25/2022 07:13:58 09/21/1909/25/2022 HIV AB/P2 4 AG WITH REFLE X HIV Ab/P24 Ag screen Non Reacti ve nonrea ctive HIV Negat tano HIV-1 /HIV- 2 antib odies and HIV-1 p24 antig en were NOT detec micky. There is no labor atory evide nce of HIV infec tion. Not Available [facility] ([facility]) [address] [facility], [place], [address], 09/25/2022 07:14:00 09/21/1909/22/2022 TSH+F REE T4 TSH 1.900 uIU/m L 0.450- 4.500 Not Available [facility] ([facility]) [address] [place], [address], 09/25/2022 07:13:59 09/21/1909/22/2022 TSH+F REE T4 T4,free(dire ct) 1.14 NG/dL 0.82-1 .77 Not Available [facility] ([facility]) [address] [place], [address], 09/25/2022 07:13:59 09/21/1909/25/2022 HCV ANTIB NATY RFX TO QUANT PCR HCV Ab Non Reacti ve nonrea ctive Not Available [facility] ([facility]) [address] [place], [address], 09/25/2022 07:13:59 09/21/19 09/25/2022 INTER PRETA TION: interpretati on: Commen t Not infec micky with HCV unles s early or acute infec tion is suspe cted (whic h may be delay ed in an immun ocomp romis ed indiv idual ), or other evide nce exist s to indic ate HCV infec tion. Not Available [facility] ([facility]) [address] [place], [address], 09/25/2022 07:13:58 05/04/20 23 05/05/2023 LIPID PANEL cholesterol, total 228 mg/dL 100-19 9 above high normal Not Available [facility] ([facility]) [address] [place], [address], 05/05/2023 09:15:20 05/04/20 23 05/05/2023 LIPID PANEL triglyceride s 105 mg/dL 0-149 Not Available [facility] ([facility]) [address] [place], [address], 05/05/2023 09:15:20 05/04/20 23 05/05/2023 LIPID PANEL HDL cholesterol 44 mg/dL >39 Not Available [facility]) [address] [place], [address], 05/05/2023 09:15:20 05/04/20 23 05/05/2023 LIPID PANEL VLDL cholesterol brittanie 19 mg/dL 5-40 Not Available [facility] ([facility]) [address] [place], [address], 05/05/2023 09:15:20 05/04/20 23 05/05/2023 LIPID PANEL LDL chol calc ([facility]) 165 mg/dL 0-99 above high normal Not Available [facility] ([facility]) [address] [place], [address], 05/05/2023 09:15:20 05/04/20 23 05/05/2023 COMP. METAB OLIC PANEL (14) glucose 87 mg/dL 70-99 Not Available [facility] ([facility]) [address] [place], [address], 05/05/2023 09:15:20 05/04/20 23 05/05/2023 COMP. METAB OLIC PANEL (14) BUN 8 mg/dL 8-27 Not Available [facility] ([facility]) [address] [place], [address], 05/05/2023 09:15:20 05/04/20 23 05/05/2023 COMP. METAB OLIC PANEL (14) creatinine 0.92 mg/dL 0.57-1 .00 Not Available [facility] ([facility]) [address] [place], [address], 05/05/2023 09:15:20 05/04/20 23 05/05/2023 COMP. METAB OLIC PANEL (14) eGFR 70 mL/mi n/1.7 3 >59 Not Available [facility] ([facility]) [address] [place], [address], 05/05/2023 09:15:20 05/04/20 23 05/05/2023 COMP. METAB OLIC PANEL (14) BUN/creatini ne ratio 9 12-28 below low normal Not Available [facility] ([facility]) [address] [place], [address], 05/05/2023 09:15:20 05/04/20 23 05/05/2023 COMP. METAB OLIC PANEL (14) sodium 140 mmol/ L 134-14 4 Not Available [facility] ([facility]) [address] [place], [address], 05/05/2023 09:15:20 05/04/20 23 05/05/2023 COMP. METAB OLIC PANEL (14) potassium 3.7 mmol/ L 3.5-5. 2 Not Available [facility] ([facility]) [address] [place], [address], 05/05/2023 09:15:20 05/04/20 23 05/05/2023 COMP. METAB OLIC PANEL (14) chloride 102 mmol/ L 96-106 Not Available [facility] ([facility]) [address] [place], [address], 05/05/2023 09:15:20 05/04/20 23 05/05/2023 COMP. METAB OLIC PANEL (14) carbon dioxide, total 24 mmol/ L 20-29 Not Available [facility] ([facility]) [address] [place], [address], 05/05/2023 09:15:20 05/04/20 23 05/05/2023 COMP. METAB OLIC PANEL (14) calcium 9.2 mg/dL 8.7-10 .3 Not Available [facility] ([facility]) [address] [place], [address], 05/05/2023 09:15:20 05/04/20 23 05/05/2023 COMP. METAB OLIC PANEL (14) protein, total 7.3 g/dL 6.0-8. 5 Not Available [facility] ([facility]) [address] [place], [address], 05/05/2023 09:15:20 05/04/20 23 05/05/2023 COMP. METAB OLIC PANEL (14) albumin 4.0 g/dL 3.9-4. 9 Not Available [facility] ([facility]) [address] [place], [address], 05/05/2023 09:15:20 05/04/20 23 05/05/2023 COMP. METAB OLIC PANEL (14) globulin, total 3.3 g/dL 1.5-4. 5 Not Available [facility] ([facility]) [address] [place], [address], 05/05/2023 09:15:20 05/04/20 23 05/05/2023 COMP. METAB OLIC PANEL (14) A/G ratio 1.2 1.2-2. 2 Not Available [facility] ([facility]) [address] [facility] [place], [address], 05/05/2023 09:15:20 05/04/20 23 05/05/2023 COMP. METAB OLIC PANEL (14) bilirubin, total <0.2 mg/dL 0.0-1. 2 Not Available [facility] ([facility]) [address] [facility] [place], [address], 05/05/2023 09:15:20 05/04/20 23 05/05/2023 COMP. METAB OLIC PANEL (14) alkaline phosphatase 108 IU/L 44-121 Not Available [facility]) [address] [facility] [place], [address], 05/05/2023 09:15:20 05/04/20 23 05/05/2023 COMP. METAB OLIC PANEL (14) AST (SGOT) 17 IU/L 0-40 Not Available [facility] ([facility]) [address] [facility] [place], [address], 05/05/2023 09:15:20 05/04/20 23 05/05/2023 COMP. METAB OLIC PANEL (14) ALT (SGPT) 15 IU/L 0-32 Not Available [facility] ([facility]) [address] [facility], [address], 05/05/2023 09:15:20 05/04/20 23 05/05/2023 ALBUM IN/CR EATIN INE RATIO ,URIN E creatinine, urine - mg/dL Test not perfo rmed. No urine speci men recei bird. Not Available [facility] ([facility]) [address] [facility] [place], [address], 05/05/2023 17:09:19 05/04/20 23 05/05/2023 ALBUM IN/CR EATIN INE RATIO ,URIN E albumin, urine - Test not perfo rmed Not Available [facility] ([facility]) [address] [facility], [place], [address], 05/05/2023 17:09:19 05/04/20 23 05/05/2023 TSH+F REE T4 TSH 1.880 uIU/m L 0.450- 4.500 Not Available [facility] ([facility]) [address] [facility], [place], [address], 05/05/2023 17:09:20 05/04/20 23 05/05/2023 TSH+F REE T4 T4,free(dire ct) 1.11 NG/dL 0.82-1 .77 Not Available [facility] ([facility]) [address] [place], [address], 05/05/2023 17:09:20 05/04/20 23 05/05/2023 SPECI MEN STATU S REPOR T specimen status report TNP Test not perfo rmed. No urine speci men recei bird. TEST: 14224 5 Album in/Cr eatin ine Ratio ,Urin e Not Available [facility] ([facility]) [address] [facility], [place], [address], 05/05/2023 17:09:19 09/05/19 22 09/05/2021 MAMMO , scree mindi, bilat eral No observ ation record ed. [address], [place], [address], 09/05/2021 16:09:36 09/05/19 22 09/05/2021 US, thyro id No observ ation record ed. [address], [place], [address], 09/05/2021 16:09:36 09/05/19 22 09/05/2021 XR, wrist , 3 or more view No observ ation record ed. [address] [address], [place], [address], 09/05/2021 16:09:35 09/21/19 23 09/21/2022 XR, hip + pelvi s, bilat eral, 3 or 4 view No observ ation record ed. [address] [id number], [place], [address], 09/22/2022 16:51:22 09/21/19 23 09/21/2022 XR, knee, 3 view No observ ation record ed. [address] [id number], [place], [address], 09/22/2022 16:51:22 09/21/19 23 09/21/2022 XR, knee, 3 view No observ ation record ed. [facility] (Imaging) [address] [place] [address], [place], [address], 09/21/2022 19:37:34 09/21/19 23 09/21/2022 rhyth m strip , EKG* No observ ation record ed. [facility] (Resp Services) [address] [place] [address], [place], [address], 09/23/2022 09:19:18 09/25/19 23 09/25/2022 US, thyro id No observ ation record ed. [address] [address], [place], [address], 09/28/2022 10:38:28 09/26/19 23 09/25/2022 US, thyro id No observ ation record ed. [address] [address], [place], [address], 09/28/2022 10:38:28 11/21/19 23 11/19/2022 MAMMO , scree mindi, bilat eral No observ ation record ed. [address], [place], [address], 11/20/2022 21:41:45 11/21/19 23 11/19/2022 MAMMO , scree mindi, bilat eral No observ ation record ed. [address], [place], [address], 11/20/2022 16:52:21 Result Notes None recorded. Problems Name Problem SNOMED Code Status Onset Date Resolution Date Notes Provider Name and Address Organization Details Recorded Time Hyperten sive disorder 71517729 Active 2019 Rosalinda Heath null, [place] - [facility] 0 10:22:20 SARS-CoV -2 Completed 201905/06/2020 Removal Reason: Symptoms gone Mariama Pinedo [place] null, [place] - [facility] 0 16:12:19 Anxiety 84472853 Active 2022 JOHANA RIBEIRO Attn: Rai hall,[address] [facility], [place], [address], [place] - [facility] 3 16:00:32 Hypercho lesterol emia 47689820 Active 2022 JOHANA RIBEIRO Attn: Rai hall,[address] [facility], [place], [address], [place] [facility] 3 16:00:35 Osteoart hritis of hip 676990963 Active 2022 JOHANA RIBEIRO Attn: Rai hall,[address] [facility], [place], [address], [place] [facility] 3 16:00:37 [facility] hyperten jovan 92625132 Active 2022 JOHANA RIBEIRO Attn: Rai hall,[address] [facility], [place], [address], [place] [facility] 3 16:02:17 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 JOHANA RIBEIRO Attn: Rai hall,[address], [place], [address], [place] [facility] 3 16:03:34 Atypical chest pain 982921799 Active 2022 JOHANA RIBEIRO Attn: Rai hall,[address], [place], [address], [place] [facility] 3 10:30:18 Osteoart hritis of bilatera l hip joints 75231000844 9105 Active 2022 JOHANA RIBEIRO Attn: Account[employer] g,[address], [place], [address], [place] [facility] 3 10:30:19 Goiter 7665101 Active 2022 JOHANA RIBEIRO Attn: Rai hall,[address], [place], [address], [place] [facility] 3 10:30:50 Obesity 028605737 Active 2022 JOHANA RIBEIRO Attn: Rai g,[address] , [place], [address], [place] [facility] 3 10:31:51 Hyperlip idemia 00446700 Active 2022 JOHANA RIBEIRO Attn: Rai hall,[address] [facility], [place], [address], [place] - [facility] 3 10:32:14 Problem Notes None recorded. Procedures Surgical History Date Name Laterality Status Provider Name and Address Organization Details Recorded Time Date of Last Mammogram completed Ibeth Andre [place] [facility] 09/30/2021 09:56:29 Tubal Ligation completed Rosalinda Heath [place] - [facility] 10:28:51 Imaging Results Imaging Date Name Status LastModified by [facility] Details LastModified Time 09/05/2021 MAMMO, screening, bilateral completed [facility] [address], [place], [address], 09/05/2021 16:09:36 09/05/2021 US, thyroid completed [facility] ital [address] [place] [address] [address] [facility], [place], [address], 09/05/2021 16:09:36 09/05/2021 XR, wrist, 3 or more view completed [address] [facility], [place], [address], 09/05/2021 16:09:35 09/21/2022 XR, hip + pelvis, bilateral, 3 or 4 view completed [address] [facility], [place], [address], 09/22/2022 16:51:22 09/21/2022 XR, knee, 3 view completed [address] [place] [address], [address], 09/22/2022 16:51:22 09/21/2022 XR, knee, 3 view completed [facility] (Imaging) [address] [place] [address] [place] [address], [address], 09/21/2022 19:37:34 09/21/2022 rhythm strip, EKG* completed [facility] (Resp Services) [address] [place] [address], [address], 09/23/2022 09:19:18 09/25/2022 US, thyroid completed [email or web address] ital [address] [place] [address] [place] [address], [address], 09/28/2022 10:38:28 09/25/2022 US, thyroid completed [email or web address] ital [address] [place] [address] [place] [address], [address], 09/28/2022 10:38:28 11/19/2022 MAMMO, screening, bilateral completed [address] [place] [address], [address], 11/20/2022 21:41:45 11/19/2022 MAMMO, screening, bilateral completed [address], [place], [address], 11/20/2022 16:52:21 Procedure Notes None recorded. Medical Equipment None Reported. Allergies Allergen ID Allergen Name Allergen Category Reaction Reaction Severity Criticality Documentation Date Start Date Code Code System Note Provider Name and Address Organization Details Recorded Time 398269 lisinopri l medicatio n Not available Not available Not available 09/15/2019 35970 RxNorm Rosalinda zabala, [place] - [facility] 0 10:21:19 Medications Name Sig Start Date Stop Date Status Note LastModified by Organization Details LastModified Time BD Ultra Fine Pen [place] Mini 5 mm X 31 gauge Use to inject insulin once a day 2022 active Not Available Not Available Not Avai lable Prescript ion - Prior Authoriza tion Request active Not Available Not Available Not Available vitamin d3 2000unit cap TAKE 1 CAPSULE BY MOUTH ONCE DAILY active Not Available Not Available No t Available atorvasta tin 40 mg tablet TAKE 1 TABLET BY MOUTH ONCE DAILY STOP 20 MG active Not Available Not Available No t Available prednison e 10 mg tablet TAKE 1 TABLET BY MOUTH THREE TIMES DAILY FOR 3 DAYS THEN 1 TWICE DAILY FOR 2 DAYS THEN 1 ONCE DAILY FOR 1 DAY 10/28 completed Not Available Not Available Not Available atorvasta tin 20 mg tablet TAKE 1 TABLET BY MOUTH ONCE DAILY AT BEDTIME active Not Available Not Available No t Available fluconazo le 150 mg tablet Take 1 tablet every week by oral route. 08/28 completed Not Available Not Available Not Available meloxicam 15 mg tablet Take 1 tablet by mouth once daily active Not Available Not Available No t Available prednison e 20 mg tablet TAKE 3 TABLETS BY MOUTH ONCE DAILY FOR 3 DAYS THEN 2 ONCE DAILY FOR 3 DAYS THEN 1 ONCE DAILY FOR 3 DAYS THEN 1/2 (ONE-BRI F) ONCE DAILY FOR 4 DAYS active Not Available Not Available No t Available amlodipin e 5 mg tablet TAKE 1 TABLET BY MOUTH ONCE DAILY 2023 active Not Available Not Available Not Avai lable tramadol 50 mg tablet Take 1 tablet 3 times a day by oral route as needed. 08/28 completed Not Available Not Available Not Available meloxicam 7.5 mg tablet TAKE 1 TABLET BY MOUTH ONCE DAILY NEEDED FOR 90 DAYS 09/02 completed Not Available Not Available Not Available baclofen 10 mg tablet TAKE 1 TABLET BY MOUTH THREE TIMES DAILY NEEDED FOR MUSCLE SPASM active Not Available Not Available No t Available amlodipin e 10 mg tablet TAKE 1 TABLET BY MOUTH ONCE DAILY FOR 90 DAYS 10/27 completed Not Available Not Available Not Available doxycycli ne monohydra te 100 mg capsule Take 1 capsule twice a day by oral route. 08/28 completed Not Available Not Available Not Available cephalexi n 500 mg capsule TAKE 1 CAPSULE BY MOUTH THREE TIMES DAILY 08/28 completed Not Available Not Available Not Available fluoxetin e 10 mg capsule TAKE 1 CAPSULE BY MOUTH ONCE DAILY FOR 30 DAYS 09/02 completed Not Available Not Available Not Available hydroxyzi ne HCl 25 mg tablet TAKE 1 TABLET BY MOUTH TWICE DAILY NEEDED FOR ANXIETY active Not Available Not Available No t Available ergocalci ferol (vitamin D2) 1,250 mcg (50,000 unit) capsule Take 1 capsule by mouth once a week active Not Available Not Available No t Available methylpre dnisolone 4 mg tablets in a dose pack TAKE BY MOUTH DIRECTED ON INSIDE OF PACKAGE active Not Available Not Available No t Available albuterol sulfate HFA 90 mcg/actua tion aerosol inhaler Inhale 2 puffs every 4 hours by inhalati on route as needed. active Not Available Not Available No t Available losartan 50 mg-hydroc hlorothia zide 12.5 mg tablet 08/28 completed Not Available Not Available Not Available oxybutyni n chloride 5 mg tablet TAKE 1 TABLET BY MOUTH TWICE DAILY 09/02 completed she stopped Not Available Not Available Not Available fluoxetin e 20 mg capsule TAKE 1 CAPSULE BY MOUTH ONCE DAILY active Not Available Not Available No t Available fluticaso ne propionat e 50 mcg/actua tion nasal spray,ruben pension USE 2 SPRAY(S) IN EACH NOSTRIL ONCE DAILY active Not Available Not Available No t Available Alcohol Prep Pads APPLY 1 PAD BY TOPICAL ROUTE DIRECTED active Not Available Not Available No t Available calcium 600 mg (as carbonate )-vitamin D3 10 mcg (400 unit) tablet TAKE 1 TABLET BY MOUTH ONCE DAILY active Not Available Not Available No t Available Symbicort 160 mcg-4.5 mcg/actua tion HFA aerosol inhaler INHALE 2 PUFFS BY MOUTH TWICE DAILY 09/02 completed Not Available Not Available Not Available Vitamin D3 50 mcg (2,000 unit) capsule Take 1 capsule every day by oral route. 2022 active Not Available Not Available Not Avai lable Victoza 3-Mikhail 0.6 mg/0.1 mL (18 mg/3 mL) subcutane ous pen injector INJECT 0.6 MG SUBCUTAN EOUSLY FOR 4 DAYS THEN INJECT 1.2MG EVERY DAY active Not Available Not Available No t Available TRUEplus Pen Needle 31 gauge x 5/16 active Not Available Not Available Not Available TRUEplus Pen Needle 31 gauge x 3/16 USE TO INJECT INSULIN ONCE A DAY active Not Available Not Available No t Available Ozempic 0.25 mg or 0.5 mg (2 mg/1.5 mL) subcutane ous pen injector 2023 active Not Available Not Available Not Avai lable Flucelvax Quad [id number] (PF) 60 mcg (15 mcg x 4)/0.5 mL IM syringe 05/06 completed Not Available Not Available Not Available COVID-19 test specimen collectio n TEST DIRECTED 08/28 completed Not Available Not Available Not Available Ozempic 0.25 mg or 0.5 mg (2 mg/3 mL) subcutane ous pen injector INJECT 0.25 MG SUBCUTAN EOUSLY EVERY WEEK active Not Available Not Available No t Available Vitals Date Recorded Body height Body mass index (BMI) Body weight Systolic blood pressure Diastolic blood pressure Provider Name and Address Organization Details Last Updated DateTime 09/30/2021 166.37 cm 41.6 kg/m2 894669.4 6 g 180 mm[Hg] 110 mm[Hg] Ibeth Andre [place] - [facility] 2 09:58:44 Date Recorded Body height Body mass index (BMI) Body weight Heart rate Oxygen saturation Oxygen saturation in Arterial blood by Pulse oximetry Systolic blood pressure Diastolic blood pressure Provider Name and Address Organization Details Last Updated DateTime 3 166.37 cm 39 kg/m2 114997. 98 g 89 /min 99 % 99 % 128 mm[Hg] 82 mm[Hg] Ibeth Andre [place] - [facility] 3 09:32:32 Date Recorded Body height Body mass index (BMI) Body weight Heart rate Oxygen saturation Oxygen saturation in Arterial blood by Pulse oximetry Systolic blood pressure Diastolic blood pressure Provider Name and Address Organization Details Last Updated DateTime 3 166.37 cm 36.3 kg/m2 613174. 31 g 90 /min 97 % 97 % 130 mm[Hg] 86 mm[Hg] Elizabeth Quinones MA [facility] 3 08:42:38 Social History Question Answer Notes LastModified by Organizat ion Details LastModified Time Tobacco Smoking Status Never Smoker Rosalinda zabala [place] - [facility] 09/15/2019 10:26:57 Do You Have An Advance Directive? No Information not available 09/15/2019 What Is Your Level Of Alcohol Consumption? None Information not available 09/15/2019 What Is Your Level Of Caffeine Consumption? Occasional Information not available 09/15/2019 How Much Tobacco Do You Chew? None Information not available 09/15/2019 Are You Currently Employed? No Information not available 09/15/2019 What Type Of Diet Are You Following? REGULAR Information not available 09/15/2019 Which Illicit Or Recreational Drugs Have You Used? None Information not available 09/15/2019 Do You Or Have You Ever Used E-cigarettes Or Vape? Never Used Electronic Cigarettes Information not available 09/15/2019 Education 4 Year College Informatio n not available 09/15/2019 What Is Your Occupation? Unemployed Information not available 09/15/2019 Are There Any Guns Present In Your Home? No Information not available 09/15/2019 Hard Of Hearing Or Deaf In One Or Both Ears? No Information not available 09/15/2019 Legally Blind In One Or Both Eyes? No Information no t available 09/15/2019 Live Alone Or With Others? With Others Information not available 09/15/2019 What Was The Date Of Your Most Recent Tobacco Screening? 05/04/2023 [email or web address] Information not available 05/04/2023 How Many Children Do You Have? 2 Information not available 09/15/2019 Seat Belts Used Routinely Yes Information not available 09/15/2019 Smoke Alarm In Home Yes Information not available 09/15/2019 At What Age Did You Start Smoking Tobacco? 0 Information not available 09/15/2019 Are You Passively Exposed To Smoke? No Information no t available 09/15/2019 Do You Or Have You Ever Used Smokeless Tobacco? Never Used Smokeless Tobacco Information not available 09/15/2019 How Much Tobacco Do You Smoke? No Information not available 09/15/2019 Do You Use Any Illicit Or Recreational Drugs? No [email or web address] Information not available 03/17/2021 Has Tobacco Cessation Counseling Been Provided? Yes [email or web address] Information not available 09/30/2021 On What Date Was Tobacco Cessation Counseling Provided? 05/04/2023 [email or web address] Information not available 05/04/2023 How Many Years Have You Smoked Tobacco? 0 Information not available 09/15/2019 Sex: Female Functional Status Question Answer Note LastModified by Organizat ion Details LastModified Time Are you able to care for yourself? Yes Information not available 09/15/2019 What is your exercise level? Occasional Information not available 09/15/2019 Mental Status None recorded. Family History Relationship Description Onset Age of this Age Resolved Age Notes LastModified by Organization Details LastModified Time Paternal Grandmother Family history of malignant neoplasm breast cancer Not available 09/15/2019 10:26:23 Paternal Grandmother Hypertensive disorder Not available 2019 10:26:40 Medical History Condition Response Coronary Artery Disease N Other N High Blood Pressure Y Atrial Fibrillation N Kidney or Bladder Problems N Thyroid Problems N Blood Clots N COPD N Depression N GI Problems N Skin Problems N Eating Disorder N Anemia N Heart Attack (PA) N Anxiety Disorder Y Diabetes N Muscle, Joint, or Bone Problems Y Seizures/Epilepsy N Acid Reflux (GERD) N Cancer N Stroke N Asthma N Allergies Y ADHD N Substance Abuse N High Cholesterol Y Hepatitis N Liver Disease N Schizophrenia N Headaches N Heart Failure N Osteoporosis N Gynecological History Statement/Question Response Date of Last Mammogram 09/05/2021 Date of LMP 09/13/2019 Menses Monthly Age at Menarche 14 Current Control Method None Age at First Child 19 LMP Definite Obstetrics History GPAL:G 2 P 2 0 0 2 Type Value Multiple Births 0 Full Term 2 Induced 0 Spontaneous 0 Premature 0 Living 2 Ectopics 0 Total 2 Immunizations Vaccine Type Date Status Note Provider Nam e and Address Organization Details Recorded Time influenza, unspecified formulation 9 completed Mariama Pinedo [place] null, [place] - [facility] 05/06/2020 16:11:03 COVID-19, mRNA, LNP-S, PF, 100 mcg/0.5mL dose or 50 mcg/0.25mL dose 1 completed Teri Hawthorne [place], [place] - [facility] 12/03/2020 12:39:10 COVID-19, mRNA, LNP-S, PF, 100 mcg/0.5mL dose or 50 mcg/0.25mL dose 1 completed Teri Hawthorne [place], [place] [facility] 12/03/2020 12:39:14 Influenza, split virus, quadrivalent, PF 2 completed Gisell Mo RN [place] [facility] 05/29/2022 14:38:11 zoster recombinant 3 completed Ib[place] [facility] 10/20/2022 10:01:09 zoster recombinant 3 completed Gisell Mo [place] [facility] 03/15/2023 10:35:23 Influenza, adjuvanted, quadrivalent, PF 3 completed Gisell Mo [place] [facility] 03/22/2023 10:22:26 Pneumococcal conjugate PCV20, polysaccharide [id number] conjugate, adjuvant, PF 3 completed Gisell Mo [place] [facility] 03/22/2023 10:24:12 Influenza, split virus, quadrivalent, preservative 0 completed Mariama Pined[place] [facility] 05/15/2020 10:44:25 Pneumococcal conjugate PCV 13 1 completed Mariama Pined[place] [facility] 08/29/2020 09:48:34 Tdap 1 completed [place] [facility] 07/02/2021 09:45:12 Influenza, split virus, quadrivalent, PF 1 completed BEAU Brown - [facility] 07/02/2021 09:43:42 Past Encounters Encounter ID Performer Location Encounter Start Date Encounter Closed Date Diagnosis/Indication Diagnosis SNOMED-CT Code Diagnosis ICD10 Code [id number] Radha Rivera MD [facility] [address] [place] [address] 09/15/2019 10:00:50 09/18/2019 09:46:28 Essential hypertension 97603175 I10 Screening mammography 24 602587 Z12.31 Screening for malignant neoplasm of colon 580503312 Z12.11 Postmenopa usal bleeding 58754201 N95.0 Moderate r ecurrent major depression 99525674 F33.1 Adult heal th examination 634918982 Z00.00 [id number] Radha Rivera MD [facility] [address] [place] [address] 05/06/2020 16:09:39 05/08/2020 11:30:58 Screening mammography 52600367 Z12.31 Fatigue 88165944 R53.83 Coronavirus infection 18 9400168 B34.2 Osteoarthritis of hip 23 1075570 M16.9 [id number] Mariama Pinedo MA [facility] [address] [place] [address] 05/15/2020 09:39:28 05/17/2020 08:47:11 Administration of influenza vaccine 38327553 Z23 [id number] Mariama Pinedo [facility] [address] [place] [address] 08/29/2020 09:38:22 08/30/2020 12:18:54 Hypothyroidism 31799053 E03.9 Administra tion of pneumococcal vaccine 58328161 Z23 [id number] Manuel Tinoco MD [facility] [address] [place] [address] 03/17/2021 09:48:06 03/24/2021 13:19:47 Urinary incontinence 845839656 R32 Sleep apnea 01205181 G47 .30 Allergic rhinitis 898334 04 J30.9 Obesity 114039765 E66.9 [id number] Ibeth Andre [facility] [address] [place] [address] 07/02/2021 09:05:54 07/04/2021 09:55:24 Hypothyroidism 10155871 E03.9 [id number] JOHANA RIBEIRO [facility] [address] [place] [address] 08/28/2021 09:50:30 08/29/2021 09:34:48 Essential hypertension 82883276 I10 Postmenopa usal bleeding 50206577 N95.0 Moderate r ecurrent major depression 13818913 F33.1 Screening mammography 24 814575 Z12.31 Screening for malignant neoplasm of colon 422427345 Z12.11 Thyroid nodule 948903147 E04.1 Pain of left wrist 66252 46998 53028 M25.384 [id number] JOHANA RIBEIRO [facility] [address] [place] [address] 09/30/2021 09:50:07 10/01/2021 09:36:49 Essential hypertension 38848929 I10 Cholesterol screening 27 4859354 Z13.220 Morbid obesity 512317171 E66.01 [id number] JOHANA RIBEIRO [facility] [address] [place] [place] [address] 09/02/2022 15:39:22 09/10/2022 14:03:44 Osteoarthritis of hip 898715713 M16.9 Hypercholesterolemia 136 24120 E78.00 Anxiety 27571126 F41.9 Essential hypertension 54156667 I10 Morbid obesity 015097014 E66.01 Prediabetes 644190485 R7 3.03 [id number] Ibeth Andre [facility] [address] [place] [address] 09/10/2022 08:59:05 09/14/2022 15:41:43 Adult health examination 251361209 Z00.00 [id number] Michael licona MD [facility] [address] [place] [address] 09/21/2022 09:15:45 09/21/2022 10:14:23 Essential hypertension 15096089 I10 Hyperlipidemia 44706792 E78.5 HIV screening 096682257 Z11.4 Screening mammography 24 239437 Z12.31 Obesity 362564989 E66.9 Goiter 9287291 E04.9 Pain of le ft knee joint 7177080102 26316 M25.562 Atypical chest pain 1025 88285 R07.89 Osteoarthr itis of bilateral hip joints 9717346475 15055 M16.0 Hepatitis C screening 41 0697071 Z11.59 Adult heal th examination 184022510 Z00.01 [id number] JOHANA RIBEIRO [facility] [address] [place] [address] 05/04/2023 08:36:34 05/04/2023 10:46:42 Essential hypertension 01192223 I10 Hyperlipidemia 59252747 E78.5 Obesity 805734272 E66.9 Pain of le ft knee joint 0864697124 09718 M25.562 Osteoarthr itis of bilateral hip joints 9178638343 13181 M16.0 Morbid obesity 504613336 E66.01 Hypercholesterolemia 136 81443 E78.00 Health Concerns Section Related Observation LastModified by Organization Detai ls LastModified Time None Recorded Concern Status LastModified by Organization Details LastModified Time None Recorded Advance Directives Directive N: Payers Encounter Date Sequence Insurance Name Policy Number Policy Arzate Covered Member ID Arzate Member ID Guarantor Name 09/30/2021 1 [facility] ON OR AFTER 02/06/21 (MEDICAID REPLACEMENT - HMO) Seble Paulino [id number] Seble Paulino 09/02/2022 1 [facility] ON OR AFTER 02/06/21 (MEDICAID REPLACEMENT - HMO) Seble Paulino [id number] Seble Paulino 09/10/2022 1 [facility] ON OR AFTER 02/06/21 (MEDICAID REPLACEMENT - HMO) Seble Paulino [id number] Seble Paulino 09/21/2022 1 [facility] ON OR AFTER 02/06/21 (MEDICAID REPLACEMENT - HMO) Seble Paulino [id number] Seble Paulino 05/04/2023 1 [facility] ON OR AFTER 02/06/21 (MEDICAID REPLACEMENT - HMO) Seble Paulino [id number] Seble Paulino Notes Date Note Type Note Provider Name and Address Organization Details Recorded Time 09/30/2021 text/html Hypertension F/UReported bypatient.Associat ed Symptoms:no dizziness; no lightheadedness; no chest pain; no shortness of breath; no palpitations; no edema; no calf pain with exertion Lifestyle:regular exercise; limiting/avoiding salt Medications:taking medications as directed; no side effects from medicationNotes:wi ll treat with amlodipine. Seble is a pleasant 61 YO F p,hxz htn, thyroid nodules, depression, post-menopausal bleedig presenting for F/U on BP Patient saw dipper operator Dr Bertram Espinal at [facility] for bleeding. Pap was normal and has f/u in November. Patient taking amlodipine. Has nt checked BP, denies cp, sob, [place], weakness, numbness, tingling. saw endo 2020 for thyroid nodules. She went to appointment but found out her endo quit. on chart review she had nodules on thyroid 10/2020. Needs US f/u in one year. JOHANA RIBEIRO Attn: Accounting, [address] [facility], [place], [address], [facility] 09/30/2021 19:29:51 09/02/2022 text/html Alysa is a 62 Y O F here to discuss anxiety and needs labs patient has scheduled for wellness visit. Anxiety has been >1 year but worse july. worse before travel or with planning. not affecting life but if I get too over excited I have touble sleeping 2-3x per week. She weaned herself off prozac. seeing ortho and wants new ortho for knee. PT second round finished July. injections not helping. he states she has OA along with left hip. doing exercises most morning. can't hardly walk. Has cane but not using. JOHANA RIBEIRO Attn: Accounting,[address] [facility], [place], [address], [place] - [facility] 09/02/2022 16:04:02 09/21/2022 text/html Hip(s)Reported bypatient.Location :bilateral Quality:aching Timing:chronic Context:cannot identify Alleviating Factors:exercise; NSAIDs Associated Symptoms:no numbness; no tingling; no swelling Previous Surgery:none Prior Imaging:x ray (2019)Hypertension F/UReported bypatient.Associat ed Symptoms:no dizziness; no lightheadedness; no chest pain; no shortness of breath; no palpitations; no edema; no calf pain with exertion Lifestyle:regular exercise; limiting/avoiding salt Medications:taking medications as directed; no side effects from medicationNotes:am lodipine.KneeRepor micky bypatient.Quality: aching; throbbing Severity:mild Timing:gradual Context:overuse Alleviating Factors:rest; elevation; NSAIDs Associated Symptoms:no weakness; no numbness; no tingling; no redness; no warmth; no ecchymosis; no catching/locking; no buckling; no grinding; no instability; no radiation down leg; no drainage; no fever; no chills; no weight loss; no change in bowel/bladder habits;swelling;po pping/clicking Previous Surgery:none Prior Imaging:none Previous Injections:helped a little; helped temporarily Previous PT:helped temporarily (06/2022) Work Related:noNotes:fo armando Smyth. no recent XRAY. gets injections. Seble is a 62 YO AAF pmhxz obesity, preDM, HTN , hyperlipidemia, OA, multinodular thyroid here for annual visit Ortho: Seble follows Dr Smyth for hip and knee OA. She received last left knee injection in February 2022. She completed PT 06/2022 with short term pain relief. Per ortho she needs to lose approx 20 more lbs for surgery. She has been going to the gym 2-3 x per week. She has been watching her diet. She has lost approx 30 lb since 2020. patient declines order for cane despite limping. Thyroid: following with serial US for multinodular thyroid. needs order Patient states she has RUQ pain once in a while and it radiated to her chest. She feels it could be from GERD. She denies sob, palpitations, LE edema. cholesterol: patient recently re-started her cholesterol medication. tolerating well mammogram: done 08/2021, normal. needs new orderPap: [facility] FOR PAP. Follows [facility]. will call to schedule. Michael Heard MD Attn: Accounting,[address], [place], [address], [facility] 09/22/2022 09:17:48 05/04/2023 text/html Hip(s)Reported bypatient.Location :bilateral Quality:aching Timing:chronic Context:cannot identify Alleviating Factors:exercise; NSAIDs Associated Symptoms:no numbness; no tingling; no swelling Previous Surgery:none Prior Imaging:x ray (2019)Hypertension F/UReported bypatient.Associat ed Symptoms:no dizziness; no lightheadedness; no chest pain; no shortness of breath; no palpitations; no edema; no calf pain with exertion Lifestyle:regular exercise; limiting/avoiding salt Medications:taking medications as directed; no side effects from medicationNotes:am lodipineKwabena Pruett is a 62 YO AAF pmhxz obesity, preDM, HTN , hyperlipidemia, OA, multinodular thyroid here for annual visit htn: states she is not taking her amlodipine. without amlodipine her BP has been <135/88 most days. denies cp, sob. Ortho: Seble follows Dr Smyth for hip and knee OA. She received last left knee injection in February 2022. She completed PT 06/2022 with short term pain relief. At this time she feels improved pain with weight loss. She does want to obtain hip xray Thyroid: following with serial US for multinodular thyroid. due November 2022 cholesterol: patient recently re-started her cholesterol medication. tolerating well mammogram: normal 2023Pap: completed at her obgyn. states it is normal. need record. JOHANA RIBEIRO Attn: Accounting,[address] [place], [address], [facility] 05/04/2023 09:14:59 OBGyn Episode Ob Episode Information Episode Created Date Number of Fetuses Patient Bloodtype Patient rh Status Prepregnancy Weight lbs Domestic Partner Domestic Partner Phone Father Name Maintenance Journeyman Status 09/15/19 20 1 CLOSED Fetus Data First Name Last Name Admitted to NICU Weight (g) Sex Living Outcome Pediatric Complications Fetus ID Race Codes Race Delivery Type [id number] Renny Calculation RENNY Calculation Method Initial Renny Date Initial Exam Date Initial Exam Provider Initial Ultrasound Date Last Menstrual Period Date Ultra Sound Weeks Gestation Conception by IVF Embryo Age at Transfer Date of Transfer 0 Eighteen To Twenty Week Renny Update Ultra Sound Date Fundal Height At Umbil Quickening Date Ultra Sound Latest Weeks Gestation Final Renny Confirmed By Final Renny Confirmed Date Final Renny Date Ultra Sound Latest Days Gestation 0 0 Menstrual History Last Menstrual Date Menses Monthly On Bcp Conception Prior Menses Frequency Hcg Plus Date Menarche Onset Age Delivery Information Delivery Date Delivery Type Labor Anesthesia Weeks Gestation Incision Type Labor Labor Length Hrs Delivered By Post Complications Tubal Sterilization Discharge Date Comments 0 Discharge Information Feeding Method Contraceptive Method Maternal HG B and HCT Levels Ob Episode Information Episode Created Date Number of Fetuses Patient Bloodtype Patient rh Status Prepregnancy Weight lbs Domestic Partner Domestic Partner Phone Father Name Maintenance Journeyman Status 09/15/19 20 1 CLOSED Fetus Data First Name Last Name Admitted to NICU Weight (g) Sex Living Outcome Pediatric Complications Fetus ID Race Codes Race Delivery Type [id number] Renny Calculation RENNY Calculation Method Initial Renny Date Initial Exam Date Initial Exam Provider Initial Ultrasound Date Last Menstrual Period Date Ultra Sound Weeks Gestation Conception by IVF Embryo Age at Transfer Date of Transfer 0 Eighteen To Twenty Week Renny Update Ultra Sound Date Fundal Height At Umbil Quickening Date Ultra Sound Latest Weeks Gestation Final Renny Confirmed By Final Renny Confirmed Date Final Renny Date Ultra Sound Latest Days Gestation 0 0 Menstrual History Last Menstrual Date Menses Monthly On Bcp Conception Prior Menses Frequency Hcg Plus Date Menarche Onset Age Delivery Information Delivery Date Delivery Type Labor Anesthesia Weeks Gestation Incision Type Labor Labor Length Hrs Delivered By Post Complications Tubal Sterilization Discharge Date Comments 7 Discharge Information Feeding Method Contraceptive Method Maternal HG B and HCT Levels
== END 2024-07-24 07:36 | disposition home or self-care (01) ==
LOC: ANHIMG 07:36
PROVIDERS: PCP Family Medicine; Visit Provider Obstetrics & Gynecology
DX: Z12.31 Encounter for screening mammogram for malignant neoplasm of breast (principal); M85.89 Other specified disorders of bone density and structure, multiple sites; Z78.0 Asymptomatic menopausal state; Z13.820 Encounter for screening for osteoporosis
CPT/HCPCS: 77063; 77067; 77080